=== PATIENT | female | born 1980 | race Caucasian/White ===

== ENCOUNTER 2024-10-07 13:40 | Emergency (ER) | payer OTHER, SELFPAY ==
[2024-10-07 13:41] VITALS: BP 106/59; PULSE 78; RESP 16; TEMP 36.8; O2SAT 100; BMI 21.9
[2024-10-07 13:48] VITALS: BP 109/74; PULSE 69; RESP 16; O2SAT 100
--- OUTSIDE RECORDS SUMMARY | 2024-10-07 14:34 | XMS RPT_ITS | CCD ---
Author Organization [facility] Care Team Providers Care Freezer Operator Name Role Phone Rosalva Tabor Primary Care Provider Анна Mccurdy Attending Unavailable Rosalva Tabor Referring Unavailable Rosalva Tabor Primary Care Unavailable ASHLEY PATEL Primary Care Physician [phone] ALEXANDER REILLY DO Attending Unavailab ASHLEY Mckeon Primary Care Unavailable ALEXANDER REILLY DO Attending Unavailab ASHLEY Mckeon Primary Care Unavailable ALEXANDER REILLY DO Attending Unavailab krishna PHYSICIAN, NONE Primary Care Unavailable ROSALVA PETIT MD Attending Unavailable ASHLEY PATEL Primary Care Unavailable Giuseppe MATTHEWS, Ashley Faulkner Unavailable Giuseppe MATTHEWS, Ashley Faulkner Unavailable (Lopez), [facility] Unavailable Clary Griffin MD Unavailable Claudia CLINICAL DATA MANAGEMENT DIRECTOR, Michelle Unavailable Andrey Turner MD Unavailable Freddie CLINICAL DATA MANAGEMENT DIRECTOR, Miladis Wang Unavailable Unavailable Gogoi (scribe), Hemanta Unavailable Unavailkelsea Horne MD, Erin Adair Unavailable Shanice GARCIAC, Becky Brown Unavailable Juan José CLINICAL DATA MANAGEMENT DIRECTOR, Violet Unavailable UnavailDoris Marcano Unavailable David CLINICAL DATA MANAGEMENT DIRECTOR, Clary Pryor Unavailable Unavailab krishna Flores LPN, Elida Miller Unavailable Unavailab Jailene Patterson MA Unavailable Unavailable Rosalva Tabor MD Unavailable Vess CLINICAL DATA MANAGEMENT DIRECTOR, Jose Wagner Unavailable Unavailable Wechin CLINICAL DATA MANAGEMENT DIRECTOR, Orin Unavailable Unavailabl e Shashank CLINICAL DATA MANAGEMENT DIRECTOR, Melanie Randolph Unavailable Unavaila ble Unavailable Unavailable Patricia CLINICAL DATA MANAGEMENT DIRECTOR, Litzy Unavailable Unavailabl e CHIN, ASHLEY J Attending Unavailable CHIN, ASHLEY J Admitting Unavailable CHIN, ASHLEY J Primary Care Unavailable CHIN, ASHLEY J Consulting Unavailable PROVIDER, UNKNOWN Consulting Unavailable CHIN, ASHLEY J Consulting Unavailable CHIN, ASHLEY J Attending Unavailable CHIN, ASHLEY J Admitting Unavailable CHIN, ASHLEY J Primary Care Unavailable PROVIDER, UNKNOWN Consulting Unavailable CHIN, ASHLEY J Attending Unavailable CHIN, ASHLEY J Admitting Unavailable CHIN, ASHLEY J Primary Care Unavailable CHIN, ASHLEY J Consulting Unavailable PROVIDER, UNKNOWN Consulting Unavailable CHIN, ASHLEY J Attending Unavailable CHIN, ASHLEY J Admitting Unavailable CHIN, ASHLEY J Primary Care Unavailable CHIN, ASHLEY J Consulting Unavailable PROVIDER, UNKNOWN Consulting Unavailable CHIN, ASHLEY J Attending Unavailable CHIN, ASHLEY J Admitting Unavailable CHIN, ASHLEY J Primary Care Unavailable CHIN, ASHLEY J Consulting Unavailable PROVIDER, UNKNOWN Consulting Unavailable Allergies Allergy Classification Reported Allergen(s) Allergy Type Date of Onset Reaction(s) Facility Cephalosporins (antibiotic) (1 source) [facility] [employer] Penicillin V (1 source) Penicillin [facility] [employer] (20 sources) Cephalexin; Translations: [cephalexin] Drug Allergy 6 Vomiting, Nausea and vomiting (disorder) [facility] Work Phone: (6 sources) Codeine Drug Allergy 6 [facility] Work Phone: (3 sources) Penicillins Propensity to adverse reactions 6 [facility] Work Phone: (3 sources) Penicillins Propensity to adverse reactions 6 [facility] Work Phone: (17 sources) Penicillin V [facility] [employer] [place] [facility] (1 source) Cephalexin Drug Allergy [facility] (1 source) Penicillins Drug allergy (disorder) [facility] Rep[facility] Medications Current Medications Medication Drug Class(es) Dates Sig (Normalized) Sig (Original) acetaminophen 325 mg / HYDROcodone bitartrate 5 mg oral tablet (1 source) Opioid Agonist Start: 10-14-2022 take 1 tablet by mouth every four hours as needed for pain [place] 325- 5 mg oral tablet Dose = 1 tab(s), Oral, q4h, PRN for pain, # 12 tab(s), 0 Refill(s), 63 Start Date: 10/14/22 Status: Ordered acetaminophen 325 mg / oxyCODONE hydrochloride 5 mg oral tablet (1 source) Opioid Agonist Start: 05-14-2022 End: 05-17-2022 take 1 tablet by mouth every four hours as needed for pain Percocet 5 mg-325 mg oral tablet Dose = 1 tab(s), Oral, q4h, PRN PRN for pain, X 3 day(s), # 18 tab(s), 0 Refill(s), Pharmacy: [facility], Status post laparoscopic assisted vaginal hysterectomy (LAVH) Status post anterior colporrhaphy, 160, cm, 05/14/22 7:11:00 EDT, Heig... Start Date: 05/14/22 Stop Date: 05/17/22 Status: Ordered ciprofloxacin 250 mg oral tablet (20 sources) Quinolone Antimicrobial Start: 10-14-2022 End: 10-28-2022 Cipro 250 mg oral tablet Dose : 250 mg = 1 tab(s), Oral, q12h, # 28 tab(s), 0 Refill(s), 63 Start Date: 10/14/22 Stop Date: 10/28/22 Status: Ordered Start: 12-03-2021 End: 12-06-2021 take 1 tablet by mouth twice daily Cipro 250 MG Oral Tablet ; 1 (one) Tablet two times daily for 3 days Quantity: 6 {Tablet} Refills: 0 Ordered: 03-Dec-2021 BYRON Chin Start: 03-Dec-2021 End: 06-Dec-2021 Status: Inactive Start: 01-02-2013 End: 01-05-2013 take 1 tablet by mouth twice daily CIPROFLOXACIN HCL, 500MG (Oral Tablet) ; 1 Tablet bid for 3 days Quantity: 6 {Tablet} Refills: 0 Ordered: 02-Jan-2013 BYRON Prasad Start: 02-Jan-2013 End: 05-Jan-2013 Status: Inactive Fish Oils (20 sources) Fish OiL 300 mg- 1,000 mg capsule ; daily (300-1,000 mg) Fish Oil Status: Inactive fluticasone propionate 0.05 mg/actuat metered dose nasal spray (20 sources) Corticosteroid Start: 10-06-2022 take 1 dose nasal route once daily as needed Flonase 50 mcg/inh nasal spray Dose = 2 spray(s), Nostril, each, qDay, PRN Allergy symptoms, 0 Refill(s) Start Date: 10/06/22 Status: Ordered Flonase Allergy Relief 50 MCG/ACT Nasal Suspension ; 1 daily (50 MCG/ACT) fluticasone prop ionate (FLONASE NASAL) Use in the nose. 0 Active Comment on above: Use in the nose. ibuprofen 600 mg oral tablet (1 source) Nonsteroidal Anti-inflammatory Drug Start: 05-14-2022 ibuprofen 600 mg oral tablet Dose : 600 mg = 1 tab(s), Oral, QID, PRN PRN as needed for pain, # 120 tab(s), 0 Refill(s), Pharmacy: [facility] [id number], 160, cm, 05/14/22 7:11:00 EDT, Height Start Date: 05/14/22 Status: Ordered multivitamin tablet (13 sources) multivitamin tab let ; daily phenazopyridine hydrochloride 200 mg oral tablet (19 sources) Start: 04-30-2022 End: 05-01-2022 phenazopyridine 200 mg oral tablet Dose : 200 mg = 1 tab(s), Oral, qHS, # 4 tab(s), 0 Refill(s) Start Date: 04/30/22 Stop Date: 05/01/22 Status: Ordered Start: 11-27-2021 End: 11-29-2021 take 1 tablet by mouth three times daily Pyridium 200 MG Oral Tablet ; 1 (one) Tablet TID for 2 days Quantity: 6 {Tablet} Refills: 0 Ordered: 27-Nov-2021 BYRON Chin Start: 27-Nov-2021 End: 29-Nov-2021 Status: Inactive Completed/Discontinued Medications Medication Drug Class(es) Dates Sig (Normalized) Sig (Original) azithromycin 250 mg oral tablet (20 sources) Macrolide Antimicrobial Start: 03-07-2018 End: 08-02-2018 Azithromycin 250 MG Oral Tablet ; 2 (two) Tablets today 1/d x 4 d for 0 days Quantity: 6 {Tablet} Refills: 0 Ordered: 02-Aug-2018 Start: 07-Mar-2018 End: 02-Aug-2018 Status: Inactive Start: 07-22-2015 End: 07-25-2015 take 1 tablet by mouth once daily AZITHROMYCIN, 500MG (Oral Tablet) ; 1 (one) Tablet once daily for 3 days Quantity: 3 {Tablet} Refills: 0 Ordered: 22-Jul-2015 MD Erin Horne Start: 22-Jul-2015 End: 25-Jul-2015 Status: Inactive Comments: wm Comment on above: wm cefdinir 300 mg oral capsule (18 sources) Cephalosporin Antibacterial Start: 06-12-19 End: 06-22-19 17 take 1 capsule by mouth twice daily Cefdinir 300 MG Oral Capsule ; 1 (one) Capsule BID for 10 days Quantity: 20 {Capsule} Refills: 0 Ordered: 11-Jun-2016 BYRON Chin Start: 11-Jun-2016 End: 21-Jun-2016 Status: Inactive clindamycin 20 mg/ml vaginal cream (1 source) Lincosamide Antibacterial Start: 05-01-19 Clindesse 2% vaginal cream Dose = 1 appl, Vaginal, Once, 0 Refill(s) Start Date: 04/30/22 Status: Ordered Desogestrel / Ethinyl Estradiol (5 sources) Progestin, Estrogen Start: 03-01-19 End: 08-21-19 DESOGEN 0.15 MG-30 MCG TAB Take one(1) tablet daily. 1 03/01/2006 08/20/2021 Discontinued Start: 03-01-2006 DESOGEN 0.15 M G-30 MCG TAB Take one(1) tablet daily. 1 03/01/2006 Active Comment on above: Take one(1) tablet d aily. doxycycline hyclate 100 mg oral capsule (18 sources) Tetracycline-class Drug Start: 02-16-19 15 End: 02-26-19 15 take 1 capsule by mouth twice daily DOXYCYCLINE HYCLATE, 100MG (Oral Capsule) ; 1 (one) Cap two times daily for 10 days Quantity: 20 {Capsule} Refills: 0 Ordered: 16-Feb-2014 BYRON Chin Start: 16-Feb-2014 End: 26-Feb-2014 Status: Inactive Ethinyl Estradiol / norgestimate (18 sources) Progestin, Estrogen Start: 02-17-19 19 End: 08-03-19 19 take 1 tablet by mouth once daily Sprintec 28 0.25-35 MG-MCG Oral Tablet ; 1 Tablet daily for 0 days Quantity: 1 {Package} Refills: 5 Ordered: 02-Aug-2018 Start: 17-Feb-2018 End: 02-Aug-2018 Status: Inactive FLUoxetine 10 mg oral capsule (18 sources) Serotonin Reuptake Inhibitor Start: 05-10-19 15 End: 04-16-19 16 FLUOXETINE HCL, 10MG (Oral Capsule) ; 1 (one) Capsule daily for 2 wks then 1 q other day for 2 wks for 0 days Quantity: 30 {Capsule} Refills: 0 Ordered: 16-Apr-2015 ABDELRAHMAN Encarnacion Start: 09-May-2014 End: 16-Apr-2015 Status: Inactive levoFLOXacin 750 mg oral tablet (18 sources) Quinolone Antimicrobial Start: 03-02-19 15 End: 03-07-19 15 take 1 tablet by mouth once daily LEVAQUIN, 750MG (Oral Tablet) ; 1 Tab daily for 5 days Quantity: 5 {Tube} Refills: 0 Ordered: 02-Mar-2014 ABDELRAHMAN Hernandez Start: 02-Mar-2014 End: 07-Mar-2014 Status: Inactive loratadine 10 mg oral tablet (18 sources) take 1 tablet by mouth once daily LORATADINE, 10MG (Oral Tablet) ; 1 daily (10 MG) Status: Inactive MULTIVITAMIN ORAL (6 sources) MULTIVITAMIN ORA L Take by mouth. 0 Active Comment on above: Take by mouth. nitrofurantoin, macrocrystals 25 mg / nitrofurantoin, monohydrate 75 mg oral capsule (18 sources) Nitrofuran Antibacterial Start: 11-28-19 End: 12-03-19 take 1 capsule by mouth twice daily Macrobid 100 MG Oral Capsule ; 1 Capsule BID for 5 days Quantity: 10 {Capsule} Refills: 0 Ordered: 27-Nov-2021 BYRON Chin Start: 27-Nov-2021 End: 02-Dec-2021 Status: Inactive omeprazole 40 mg delayed release oral capsule (20 sources) Proton Pump Inhibitor Start: 07-26-19 End: 10-21-19 13 OMEPRAZOLE, 40MG (Oral Capsule Delayed Release) ; [address] daily for 0 days Quantity: 30 {Capsule_DR} Refills: 6 Ordered: 20-Oct-2012 BYRON Chin Start: 25-Jul-2010 End: 20-Oct-2012 Status: Inactive Comments: taking otc Start: 02-22-2010 End: 07-25-2010 OMEPRAZOLE, 20MG (Oral Capsu le Delayed Release) ; [address] daily for 0 days Quantity: 30 {Cap_DR} Refills: 5 Ordered: 25-Jul-2010 ABDELRAHMAN Taylor Start: 22-Feb-2010 End: 25-Jul-2010 Status: Inactive Comment on above: taking otc sulfamethoxazole 800 mg / trimethoprim 160 mg oral tablet (18 sources) Dihydrofolate Reductase Inhibitor Antibacterial, Sulfonamide Antimicrobial Start: 05-03-2024 End: 05-08-2024 Bactrim DS 800 mg-160 mg tablet ; 1 Tablet two times daily for 5 days Quantity: 10 {Tablet} Refills: 0 Ordered: 03-May-2024 MD Rosalva Tabor Start: 03-May-2024 End: 08-May-2024 Status: Inactive Start: 01-15-2021 End: 01-20-2021 take 1 tablet by mouth twice daily Bactrim DS 800-160 MG Oral Tablet ; 1 Tablet two times daily for 5 days Quantity: 10 {Tablet} Refills: 0 Ordered: 15-Jan-2021 BYRON Chin Start: 15-Jan-2021 End: 20-Jan-2021 Status: Inactive Problems Active Problems Problem Classification Problem Date Documented Date Episodic/Chronic Acute bronchitis (20 sources) Acute bronchitis 03-17-2010 Episodic Administrative/soci al admission (20 sources) Issue of repeat prescriptions 03-02-2014 Episodic Cancer of cervix (20 sources) Papanicolaou smear of cervix with atypical squamous cells of undetermined significance (ASC-US) 11-26-2022 Episodic Comment on above: positive hpv Contraceptive and procreative management (20 sources) Unspecified contraceptive management 02-16-2014 Episodic Crushing injury or internal injury (20 sources) Crushing injury of toe(s) 07-25-2010 Episod ic Deficiency and other anemia (20 sources) Anemia; Translations: [Anemia, unspecified] 07-25-2010 Episodic Disorders of lipid metabolism (20 sources) Mixed hypercholesterolemia and hypertriglyceridemia; Translations: [Mixed hyperlipidemia] 12-15-2018 Chronic Esophageal disorders (20 sources) Gastroesophageal reflux disease; Translations: [Esophageal reflux] 11-26-2022 Chronic Esophageal disorders (20 sources) Acute esophagitis; Translations: [Acute esophagitis] 11-12-2010 Episodic Genitourinary symptoms and ill-defined conditions (2 sources) Female stress incontinence; Translations: [Stress incontinence (female) (male)] Chronic Genitourinary symptoms and ill-defined conditions (20 sources) Increased frequency of urination; Translations: [Frequency of micturition] Episodic Immunizations and screening for infectious disease (20 sources) Patient encounter status; Translations: [Encounter for screening for human papillomavirus (HPV)] Episodic Nonmalignant breast conditions (20 sources) Breast lump; Translations: [Unspecified lump in unspecified breast] 12-14-2018 Episodic Other and unspecified benign neoplasm (18 sources) Benign neoplasm of soft tissue; Translations: [Melanocytic nevi, unspecified] 11-03-2011 Episodic Other complications of (20 sources) Other specified complications of , unspecified as to episode of care or not applicable 06-02-2010 Episodic Other connective tissue disease (1 source) Pelvic floor dysfunction; Translations: [Other specified disorders of muscle] Episodic Other diseases of bladder and urethra (1 source) Overactive bladder; Translations: [Overactive bladder] Chronic Other female genital disorders (2 sources) Abnormal uterine and vaginal bleeding, unspecified; Translations: [Abnormal uterine and vaginal bleeding, unspecified] Onset: 3 Chronic Other female genital disorders (2 sources) Other specified abnormal uterine and vaginal bleeding; Translations: [Other specified abnormal uterine and vaginal bleeding] Onset: 3 Chronic Other female genital disorders (20 sources) Premenstrual tension syndrome; Translations: [Premenstrual tension syndrome] 12-14-2018 Chronic Other non-traumatic joint disorders (20 sources) Multiple joint pain; Translations: [Pain in unspecified joint] 11-26-2022 Episodic Other and delivery including normal (20 sources) Supervision of other normal ; Translations: [Routine follow-up] 06-02-2010 Episodic Other screening for suspected conditions (not mental disorders or infectious disease) (20 sources) Cancer cervix screening status; Translations: [Encounter for screening for malignant neoplasm of cervix] Episodic Other skin disorders (20 sources) Hirsutism; Translations: [Hirsutism] 11-26-2022 Episodic Other upper respiratory infections (20 sources) Sinusitis; Translations: [Chronic sinusitis, unspecified] 07-22-2015 Chronic Other upper respiratory infections (20 sources) Acute maxillary sinusitis; Translations: [Acute maxillary sinusitis, unspecified] 06-11-2016 Episodic Otitis media and related conditions (18 sources) Otitis media; Translations: [Unspecified nonsuppurative otitis media, left ear] 06-11-2016 Episodic Prolapse of female genital organs (4 sources) Herniated urinary bladder; Translations: [Cystocele, unspecified] Onset: 3 Chronic Rehabilitation care; fitting of prostheses; and adjustment of devices (1 source) Patient encounter status; Translations: [Encounter for fitting and adjustment of other specified devices] Chronic Residual codes; unclassified (1 source) Pelvic organ finding; Translations: [Acquired absence of both cervix and uterus] Onset: 3 Episodic Residual codes; unclassified (1 source) Past history of procedure; Translations: [Other specified postprocedural states] Onset: 3 Episodic Residual codes; unclassified (20 sources) Influenza vaccination declined; Translations: [Immunization not carried out because of patient refusal] 12-14-2018 Episodic Sexually transmitted infections (not HIV or hepatitis) (7 sources) Other abnormal Papanicolaou smear of cervix and cervical HPV 02-16-2014 Episodic Skin and subcutaneous tissue infections (20 sources) Paronychia of toe; Translations: [Cellulitis of unspecified toe] 01-07-2011 Episodic Unclassified (7 sources) GERD/ACID REFLUX 02-16-2014 Unclassified (18 sources) Number of Children 11-26-2022 Comment on above: 2. Unclassified (18 sources) Number of Pregnancies 11-27-2021 Comment on above: 2. Unclassified (18 sources) Vaginal deliveries 11-26-2022 Comment on above: 2. Urinary tract infections (20 sources) Urinary tract infectious disease; Translations: [Urinary tract infection, site not specified] 01-15-2021 Episodic Past or Other Problems Problem Classification Problem Date Documented Da te Episodic/Chronic Unclassified (18 sources) Well adult female - The patient feels well with no complaints. The patient has a balanced diet and takes supplemental vitamins (fish oil and hair skin and nails). The patient exercises weekly. The patient sleeps 8 hours per night. Note for Well adult female: No concerns today. 11-26-2022 Unclassified (18 sources) Well adult female - The patient feels well with minor complaints (some urinary symptoms and still spotting from period started on the ), has good energy level and is sleeping well. The first day of the last menstrual period was : (11/17/21). The patient has a balanced diet. The patient exercises 3 - 4 times per week. The patient sleeps 7 hours per night. Note for Well adult female: Saw [facility] to sent to urology who sent to urogyn. Had lots of procedures done for residual urine. Was given a pessary. Has large clots but regular menses (usually lasts 6-7 days) - has had some persistent light brown spotting with this period but this today had urinary clots, some bilateral lower dull back pain, no fever, and bladder spasms. Has appt tomorrow with [facility] (who manages uro symptoms too). 11-27-2021 Unclassified (18 sources) UTI - Symptoms include abdominal pain and back pain. The pain is located in the suprapubic area and in the back. The patient describes the pain as burning. Onset was gradual 1 week(s) ago. There is no known event that preceded symptom onset. The symptoms occur constantly. The patient describes this as moderate in severity and unchanged. Associated symptoms do not include fever or nausea. Note for UTI: Pt was treated via tele doc on 01/12/21 with macrobid - took that until she called our office on 01/15 and was changed to bactrim (was having new back pain). Urine culture was negative so bactrim was stopped. She has continued with back pain (not associated with movement).Has urinary pressure.Abd pain/burning throughout - sometimes more prominent in right lower pelvis.LMP was right before urinary symptoms started.No constipation - BMs have been maybe slightly loser (similar to how they are when she is on her menses). 01-22-2021 Unclassified (18 sources) Well adult female - The patient feels well with no complaints, has good energy level and is sleeping well. The patient is not using any method of contraception at this time. The patient has a balanced diet. The patient exercises 3 - 4 times per week. The patient sleeps 7 hours per night. Note for Well adult female: No concerns today. 12-05-2020 Unclassified (18 sources) Well adult female - The patient feels well with no complaints, has good energy level and is sleeping well. The first day of the last menstrual period was : (11/24/2019). The patient has a balanced diet and takes no supplemental vitamins & iron. The patient exercises weekly (occasionally). The patient sleeps 7 hours per night. Note for Well adult female: Weight is up 10 pounds - stress/lifestyle related. 12-18-2019 Unclassified (18 sources) Well adult female - The patient feels well with no complaints, has good energy level and is sleeping poorly (has a baby she is taking care of and he is starting to not sleep as well which affects her). The first day of the last menstrual period was : (12/05/2018). The current method of contraception is: partner had vasectomy. The patient has a balanced diet and takes supplemental vitamins. The patient exercises weekly. The patient sleeps 6 hours per night. Note for Well adult female: Last office visit 08/02/2018. Also hyperlipidemia and gerd. 12-15-2018 Unclassified (18 sources) Breast lump - The lump is on the right breast. The onset of the lump has been sudden and has been occurring in a persistent pattern for 2 days. The course has been constant. The lump is described as tender. The lump is described as moderate. The first day of the last menstrual period was : (07/12/2018). Note for Breast lump: Patient states that her maternal aunt had breast cancer. She denies any redness on outside of breast. No drainage noted. 08-02-2018 Unclassified (18 sources) Well adult female - The patient feels well with minor complaints (she is questioning hormones - still feels crazy some days (PMS) and then getting chin hair; periods are regular but heavy (pad/tampon every 2 hours)), has good energy level and is sleeping well. The first day of the last menstrual period was : (12/12/2017 states is regular). The patient has a balanced diet and takes supplemental vitamins (when she remembers.). The patient exercises weekly. The patient sleeps 7 hours per night. Note for Well adult female: Has been having pain in hands/feet. Morning stiffness that lasts for less than 30 minutes. 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 The first day of the last menstrual period was : (10/29/2016). The patient has a balanced diet and takes no supplemental vitamins & iron. The patient exercises weekly (1-2 x a wk). The patient sleeps 7 hours per night. 11-13-2016 Unclassified (18 sources) Cold Symptoms - Symptoms include nasal congestion, runny nose, ear pain (just started ), sore throat and headache, but do not include dry cough, productive cough or fever. The onset was gradual 7 day(s) ago. The symptoms occur constantly. The patient describes this as moderate in severity and unchanged. Current treatment includes saline nasal spray/drops and mucinex and sinus releif. Medical history includes seasonal allergies and recurrent sinusitis, but patient denies history of recurrent strep pharyngitis, asthma, tonsillectomy or recurrent ear infections. 06-11-2016 Unclassified (18 sources) Well adult female - The patient feels well with no complaints, has good energy level and is sleeping well. The first day of the last menstrual period was : (10/26/2015 regular). The patient has a balanced diet and takes no supplemental vitamins & iron. The patient exercises weekly. The patient sleeps 7 hours per night. Note for Well adult female: Pt has no complaints - needs form completed. 11-04-2015 Unclassified (18 sources) Cold Symptoms - Symptoms include sneezing, nasal congestion, runny nose, ear pain (bilateral), ear fullness, sore throat (a few weeks ago), scratchy throat, dry cough (occasionally), headache and facial pain, but do not include fever, chills or general malaise. The onset was sudden 2 week(s) ago. The symptoms occur constantly. The patient describes this as moderate in severity and unchanged. Current treatment includes allergy medications (Zyrtec and OTC cold medication.). Medical history includes seasonal allergies. 07-22-2015 Unclassified (18 sources) UTI - Symptoms include dysuria, urinary frequency and urinary urgency. Onset was sudden hour(s) ago. There is no known event that preceded symptom onset. The symptoms occur constantly. The patient describes this as moderate in severity and worsening. Symptoms are relieved by urinary anesthetics. Associated symptoms include nausea and nocturia, but do not include fever or chills. 04-16-2015 Unclassified (18 sources) Well adult female - The patient feels well with minor complaints (Has had prolonged cold symptoms - cough,st, rhinitis (colored in am), ears hurt. No fever. Daughter has been sick.), has decreased energy level and is sleeping well. The first day of the last menstrual period was : (Last was 1 month ago; is due; regular on OCP). The current method of contraception is: oral contraceptives. The patient has a balanced diet and takes no supplemental vitamins & iron. The patient exercises weekly. The patient sleeps 6 hours per night. Note for Well adult female: Has noticed improvement in PMS with OCP and SSRI - still has symptoms but they are much better. Has noticed decreased libido since starting SSRI but is ok with this. Weight is up about 10 pounds in the past year. 02-16-2014 Unclassified (18 sources) Cold Symptoms - Symptoms include nasal congestion, ear pain, ear fullness, scratchy throat (mild), dry cough (mild), general malaise, headache and facial pain, but do not include wheezing or fever. The onset was gradual 3 week(s) ago. The patient describes this as moderate in severity and worsening. Current treatment includes allergy medications (Claritin, Zyrtec). Risk factors do not include smoking. The patient has been exposed to an individual with an upper respiratory infection. 06-09-2013 Unclassified (18 sources) Form completion physical - The patient feels well with no complaints, has good energy level and is sleeping well. There are no current symptoms. The patient has an appropriate balanced diet and takes no supplemental vitamins or iron and sleeps on average 8 hours per night. There are no behavioral problems. 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 04-06-2013 Unclassified (18 sources) UTI - Symptoms include dysuria, urinary frequency, urinary urgency, dark urine, abdominal pain and back pain. The pain is located in the suprapubic area and in the back. The patient describes the pain as dull, aching and burning. Onset was sudden 3 day(s) ago. There is no known event that preceded symptom onset. The symptoms occur constantly. The patient describes this as moderate in severity and worsening. Symptoms are relieved by urinary anesthetics and cranberry juice. Associated symptoms include nausea, but do not include fever or vomiting. 12-31-2012 Unclassified (18 sources) Well adult female - The patient feels well with minor complaints (Periods are regular but are heavy and painful. A couple of days before her period she says she becomes the devil and she can just feel her hormones go crazy. Gets achy and fatigued around her menses. Says it has been like this since she had her son. ), has decreased energy level and is sleeping poorly (sleeps lighltey). The first day of the last menstrual period was : (10/08/12). The current method of contraception is: partner had vasectomy. The patient has a balanced diet and takes no supplemental vitamins & iron. The patient exercises weekly. The patient sleeps 8 hours per night. 10-20-2012 Unclassified (18 sources) Well Adult, female - The patient feels well with minor complaints. Most recent Pap smear : (11/18 - wnl (previous pap in 07/2010 was ASCUS and HPV +)). The first day of the last menstrual period was : (10/14/2011 - normal). The current method of contraception is: partner had vasectomy. Patient has not had a screening mammogram. Date of most recent cholesterol screening : (11/07/10-237). Date of most recent glucose screening : (10/19 83). Date of Pneumovax : (2003). Date of most recent influenza vaccine : (2010 - gets it at work). Last Tetanus booster: Date: (09/2003). The patient has a balanced diet. The patient exercises every other day (2-3 times per week). The patient sleeps 7 hours per night. Note for Well Adult, female: Will be having biometric testing done in November at work. Complains of trouble swallowing - 3x/month - hasn't been increasing in frequency. Occurs while eating or after eating a meal. Sometimes it can last for a full day. Unable to identify if more with solids or liquids. Would like to have a mole on her chest checked - it has gotten darker. 11-03-2011 Unclassified (18 sources) lina consult - Pt states that she is currently using condoms for contraception. Since having her second child earlier this year her periods have not been regular. LMP 12/02/10. No history of PID, ectopic ; denies STD risk. Has used OCPs in past, but prefers to use something she doesn't have to think about everday. 01-09-2011 Unclassified (18 sources) toenail problem - Crushed great toe this past summer. Toenail is not healing correctly. She thinks she needs something excised. 01-07-2011 Unclassified (18 sources) Sinus - Pt here because she has been fighting with sinus for past month. Head and nasal congestion. Can't taste or smell anything and ears lugged and ache. No fever. Feels it was time for rx. was in cipro about a month ago for infected toe, then got a UTI and was on bactrim which was switched to macrodantin after C & S got back. Pt has had sinus sx through out. 12-15-2010 Unclassified (18 sources) UTI - Symptoms include dysuria, urinary frequency, urinary urgency and abdominal pain, but do not include back pain. The pain is located in the suprapubic area. There is no radiation. The patient describes the pain as aching. Onset was sudden 12 hour(s) ago. There is no known event that preceded symptom onset. The symptoms occur constantly. The patient describes this as severe and unchanged. Symptoms are relieved by phenazopyridine. Associated symptoms include fever (didn't have a temperature earlier this morning when she checked it, just has one now in the office), chills and nausea, but do not include vomiting. Note for UTI: Has never had UTI before. Just finished course of cipro (10 days) for infected toe on 11/22/10. 11-26-2010 Unclassified (18 sources) 2 things. - -1) Repeat pap smear. ASCUS pap + hpv in July 2010. 2) Discuss recent labs. Had fingerstick screening at work, elevated results. Had venipuncture labs for comparison. 11-12-2010 Unclassified (16 sources) Post- visit - The patient is here for an initial visit after induced vaginal delivery. There were no complications. The patient feels well with no complaints. There are no urinary problems. There are no bowel problems. Perineum/wound: perineum healing well. There are no feeding difficulties. Menstruation: has not resumed. The patient has resumed physical activity. 07-25-2010 Unclassified (16 sources) [ADDITIONAL REASON] gastritis - was in er recently with chest tightness and abdominal pain. was dx with reflux and esophogeal spasm. was advised to use antacids and she also is taking otc prevacid. she is still having alot of sx. 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 Right toe swollen and ecchymotic. Hurts to bear any weight- has to walk on outside of foot. Kept her up all last night. Entire toe painful into top part of foot. 06-06-2010 Unclassified (15 sources) Visit - The patient is here for a 28 week visit. 03-17-2010 Unclassified (15 sources) [ADDITIONAL REASON] Cold Symptoms - Symptoms include nasal congestion, scratchy throat, dry cough (and chest pain) and general malaise (nausea, decreased movement), but do not include fever. The onset was gradual 1 week(s) ago (had sinus rishi for one month). The symptoms occur constantly. The patient describes this as moderate in severity and worsening. Current treatment includes acetaminophen. 03-17-2010 Unclassified (2 sources) gastritis - was in er recently with chest tightness and abdominal pain. was dx with reflux and esophogeal spasm. was advised to use antacids and she also is taking otc prevacid. she is still having alot of sx. 07-25-2010 Unclassified (2 sources) [ADDITIONAL REASON] Post- visit - The patient is here for an initial visit after induced vaginal delivery. There were no complications. The patient feels well with no complaints. There are no urinary problems. There are no bowel problems. Perineum/wound: perineum healing well. There are no feeding difficulties. Menstruation: has not resumed. The patient has resumed physical activity. 07-25-2010 Unclassified (3 sources) Cold Symptoms - Symptoms include nasal congestion, scratchy throat, dry cough (and chest pain) and general malaise (nausea, decreased movement), but do not include fever. The onset was gradual 1 week(s) ago (had sinus rishi for one month). The symptoms occur constantly. The patient describes this as moderate in severity and worsening. Current treatment includes acetaminophen. 03-17-2010 Unclassified (3 sources) [ADDITIONAL REASON] Visit - The patient is here for a 28 week visit. 03-17-2010 Unclassified (13 sources) Well adult female - The patient feels well with no complaints, has good energy level and is sleeping well. The patient has a balanced diet and takes supplemental vitamins. The patient exercises 3 - 4 times per week. The patient sleeps 8 hours per night. Note for Well adult female: Weight down 11 pounds in the past year - lots of stress/changes but feels she is doing ok now. 12-01-2023 Unclassified (4 sources) Well adult female - The patient feels well with no complaints, has good energy level and is sleeping well. The patient has a balanced diet. The patient exercises 3 - 4 times per week. The patient sleeps 8 hours per night. Note for Well adult female: Patient voices no concerns at this time, patient declines pelvic exam at this time. 08-31-2024 Results Test Name Value Interpretation Reference Range Facility CA 125 [CCL]on 09-01-2024 CA 125 13 U/mL Normal [facility] Comment on above: Result Comment: CA 1 25 test methodology used is the Electrochemiluminescence Immunoassay by [facility]. Results obtained with different methods or kits cannot be used interchangeably. The reference interval is based on the 95th percentile of 240 apparently healthy premenopausal and postmenopausal women. At a cutoff value of 65 U/mL, the test sensitivity to distinguish ovarian carcinoma (FIGO stage I to IV) versus benign gynecological disease is 79%, with a specificity of 82%. Reference: Cancer Antigen 125 (CA 125 II) [package insert V 1.0 [place]]. [facility], [place], [place] (November 2014) [place] [id number] Stanford Reid III, M.D. [id number] Performed By: #### 2 71416 #### [address] [address] CA 15-3 [CCL]on 09-01-2024 CA 15-3 12.6 U/mL Normal [facility]. Comment on above: Result Comment: The CA 15-3 test methodology used is the Electrochemiluminescence Immunoassay by [employer]. Results obtained with different methods or kits cannot be used interchangeably. [address] [address] Stanford Reid III, M.D. [id number] Performed By: #### 2 55720 #### [address] [address] CA 19-9 [CCL]on 09-01-2024 CA 19-9 14.0 U/mL Normal <36.0 [facility] Comment on above: Result Comment: [facility] er antigen 19-9 test is used as an aid in monitoring response to treatment or recurrence in patients with established pancreatic, hepatobiliary, or gastrointestinal malignancies. Clinical correlation is required. The CA 19-9 Antigen test was performed using the [employer] DXI paramagnetic particle chemiluminescent immunoassay method. Results obtained with different assay methods or kits cannot be used interchangeably. [address] [address] Stanford Reid III, M.D. [id number] Performed By: #### 2 37167 #### [address] [address] Cancer Ag125 SerPl-aCncon Cancer Ag 125 Qn 13 [arb'U]/mL Normal <39 [facility] Comment on above: Order Comment: Freda christie Type: BLOOD SPECIMEN Ordering Facility: [facility] Address: [place] [address] Result Comment: CA 1 25 test methodology used is the Electrochemiluminescence Immunoassay by [facility]. Results obtained with different methods or kits cannot be used interchangeably. The reference interval is based on the 95th percentile of 240 apparently healthy premenopausal and postmenopausal women. At a cutoff value of 65 U/mL, the test sensitivity to distinguish ovarian carcinoma (FIGO stage I to IV) versus benign gynecological disease is 79%, with a specificity of 82%. Reference: Cancer Antigen 125 (CA 125 II) [package insert V 1.0 [place]ian]. [facility], [place], [place] (November 2014) Performed By: #### 2 4108-3, 6875-9, 46673-6 #### [facility] CLIA [id number] [address] [place] [address] [place] Cancer Ag15-3 SerPl-aCncon 0 08-31-2024 Cancer Ag 15-3 Qn 12.6 U/mL Normal <26.0 [facility] Comment on above: Order Comment: Freda christie Type: BLOOD SPECIMEN Ordering Facility: [facility] Address: [facility] [place] [address] Result Comment: The CA 15-3 test methodology used is the Electrochemiluminescence Immunoassay by [facility]. Results obtained with different methods or kits cannot be used interchangeably. Performed By: #### 2 4108-3, 6875-9, 71861-3 #### [facility] CLIA [id number] [address] [place] [address] [place] Cancer Ag19-9 SerPl-aCncon 0 08-31-2024 Cancer Ag 19-9 Qn 14.0 [arb'U]/mL Normal <36.0 [facility] Comment on above: Order Comment: Freda christie Type: BLOOD SPECIMEN Ordering Facility: [facility] Address: [facility] [place] [address] Result Comment: [facility] er antigen 19-9 test is used as an aid in monitoring response to treatment or recurrence in patients with established pancreatic, hepatobiliary, or gastrointestinal malignancies. Clinical correlation is required. The CA 19-9 Antigen test was performed using the [employer] [place] [employer] DXI paramagnetic particle chemiluminescent immunoassay method. Results obtained with different assay methods or kits cannot be used interchangeably. Performed By: #### 2 4108-3, 6875-9, 01664-3 #### [facility] CLIA [id number] [address] [place] [address] [place] No Panel Informationon 08-31 CA 19-9 14.0 U/mL Normal [facility] Work Phone: 3D MAMM UNILAT RT DIAGNOSTIC on 08-22-2024 3D MAMM UNILAT RT DIAGNOSTIC [address] [address] Patient: BUCK LONG Phone#: : 1980 Age: 43 Gender: F Pt. Type: Out Account: [id number] Location: Ordering: [facility] Exam Date: 08/22/2024/10:05 Family Phys: Charge Code: [id number] Physician: Magoffin Order #: [id number] Dose#: PROCEDURE: RIGHT DIAGNOSTIC BREAST TOMOSYNTHESIS MAMMOGRAM WITH CAD COMPARISON: [facility], 3D UNILAT RT DIAGNOSTIC, 07/23/2023, 9:30. [facility], 3D BILAT SCREEN, 08/18/2024, 10:44. INDICATIONS: Abnormal mammogram. BREAST COMPOSITION: There are scattered areas of fibroglandular density FINDINGS: DIAGNOSTIC CATEGORY 0--INCOMPLETE: NEED ADDITIONAL IMAGING EVALUATION. RIGHT BREAST: FOCAL ASYMMETRY (finding without convex borders usually visible on two orthogonal views), characterized by poorly marginated increased density unchanged with additional spot compression views. Further evaluation by ultrasound will be performed. RECOMMENDATIONS: ULTRASOUND: RIGHT BREAST --We will call the patient back for an ultrasound and provide an additional report. PLEASE NOTE: A NORMAL MAMMOGRAM DOES NOT EXCLUDE THE POSSIBILITY OF BREAST CANCER. A CLINICALLY SUSPICIOUS PALPABLE LUMP SHOULD BE BIOPSIED. THIS FACILITY UTILIZES A REMINDER SYSTEM TO ENSURE THAT ALL PATIENTS RECEIVE REMINDER LETTERS FOR APPOINTMENTS. THIS INCLUDES REMINDERS FOR ROUTINE MAMMOGRAMS, DIAGNOSITC MAMMOGRAMS, OR OTHER BREAST IMAGING INTERVENTIONS WHEN APPROPRIATE. THIS PATIENT WILL BE PLACED IN THE APPROPRIATE REMINDER SYSTEM. Dictated by: Elena Quach MD on 08/22/2024 at 11:13 Approved by: Elena Quach MD on 08/22/2024 at 11:15 Normal [facility] US BREAST RT UNILATERAL COMP LETEon 08-22-2024 US BREAST RT UNILATERAL COMPLETE [place] [id number] Patient: BUCK LONG Phone#: : 1980 Age: 43 Gender: F Pt. Type: Out Account: [id number] Location: Ordering: [facility] Exam Date: 08/22/2024/12:29 Family Phys: Charge Code: [id number] Physician: Magoffin Order #: [id number] Dose#: PROCEDURE: ULTRASOUND BREAST RT COMPARISON: None. INDICATIONS: Follow up mamm TECHNIQUE: Breast ultrasound was performed, with evaluation focusing on all four quadrants. FINDINGS: DIAGNOSTIC CATEGORY 3--PROBABLY BENIGN: FINDING(S) HAS A HIGH PROBABILITY OF A BENIGN; RIGHT BREAST: Simple benign-appearing cyst, anechoic echotexture, mid-breast depth, 10 o'clock position, and 2 mm size.The finding does not appear to correlate with a mammogram finding. Six month follow-up evaluation by mammography to assess stability is recommended. RECOMMENDATIONS: SHORT TERM FOLLOW-UP DIAGNOSTIC MAMMOGRAM RIGHT BREAST IN 6 MONTHS. PLEASE NOTE: A NORMAL MAMMOGRAM DOES NOT EXCLUDE THE POSSIBILITY OF BREAST CANCER. A CLINICALLY SUSPICIOUS PALPABLE LUMP SHOULD BE BIOPSIED. Dictated by: Elena Qucah MD on 08/22/2024 at 15:35 Approved by: Elena Quach MD on 08/22/2024 at 15:39 Normal [facility] 3D MAMM BILAT SCREENon 08-18 3D MAMM BILAT SCREEN [place] [id number] Patient: BUCK LONG Phone#: : 1980 Age: 43 Gender: F Pt. Type: Out Account: [id number] Location: Ordering: [facility] Exam Date: 08/18/2024/10:44 Family Phys: Charge Code: [id number] Physician: Magoffin Order #: [id number] Dose#: PROCEDURE: BILATERAL SCREENING BREAST TOMOSYNTHESIS MAMMOGRAM WITH CAD COMPARISON: [facility], 3D BILAT SCREEN, 07/22/2023, 9:10. [facility], 3D UNILAT RT DIAGNOSTIC, 07/23/2023, 9:30. INDICATIONS: SCREENING BREAST COMPOSITION: There are scattered areas of fibroglandular density FINDINGS: DIAGNOSTIC CATEGORY 0--INCOMPLETE: NEED ADDITIONAL IMAGING EVALUATION. RIGHT BREAST: FOCAL ASYMMETRY (finding without convex borders usually visible on two orthogonal views), characterized by obscured indeterminate morphology, mid-breast depth, 4 o'clock position, and 15 x 13 by 20 mm size. Area has developed since the prior exam. LEFT BREAST: No significant suspicious finding. No significant change has occurred. RECOMMENDATIONS: ADDITIONAL MAMMOGRAPHIC VIEWS REQUIRED: RIGHT BREAST --We will call the patient back for additional views and issue an addendum report. PLEASE NOTE: A NORMAL MAMMOGRAM DOES NOT EXCLUDE THE POSSIBILITY OF BREAST CANCER. A CLINICALLY SUSPICIOUS PALPABLE LUMP SHOULD BE BIOPSIED. THIS FACILITY UTILIZES A REMINDER SYSTEM TO ENSURE THAT ALL PATIENTS RECEIVE REMINDER LETTERS FOR APPOINTMENTS. THIS INCLUDES REMINDERS FOR ROUTINE MAMMOGRAMS, DIAGNOSITC MAMMOGRAMS, OR OTHER BREAST IMAGING INTERVENTIONS WHEN APPROPRIATE. THIS PATIENT WILL BE PLACED IN THE APPROPRIATE REMINDER SYSTEM. Dictated by: Elena Quach MD on 08/18/2024 at 11:06 Approved by: Elena Quach MD on 08/18/2024 at 11:12 Normal [facility] CMP with eGFRon 08-08-2024 AGE 43 years Normal [facility] Comment on above: Performed By: #### 2 21517 #### [facility],[address] [place] [address] Albumin [Mass/Vol] 4.1 g/dL Normal 3.4 - 5.0 g/dL [facility].; [facility]. Comment on above: Performed By: #### 2 62253 #### [place] [address] Albumin/Globulin [Mass ratio] 1.1 {ratio} Normal 0.9 - 1.6 [facility] Comment on above: Performed By: #### 2 99728 #### [place] [address] ALK PHOS 38 U/L Low 46 - 116 [facility] Comment on above: Performed By: #### 2 31442 #### [place] [address] ALT [Catalytic activity/Vol] 26 U/L Normal 16 - 63 U/L [facility].; [facility], [facility]. Comment on above: Performed By: #### 2 22807 #### [place] [address] Anion gap [Moles/Vol] 12 mmol/L Normal 10 - 20 mmol/L [facility].; [facility], [facility]. Comment on above: Performed By: #### 2 01888 #### [place] [address] AST [Catalytic activity/Vol] 15 U/L Normal 13 - 39 U/L [facility].; [facility], [facility]. Comment on above: Performed By: #### 2 91575 #### [place] [address] B/C RATIO 14 ratio Normal 0 - 30 [facility] Comment on above: Performed By: #### 2 88088 #### [place] [address] Bilirubin [Mass/Vol] 0.3 mg/dL Normal 0.2 - 1.0 mg/dL [facility].; [facility] Comment on above: Performed By: #### 2 89924 #### [place] [address] Calcium [Mass/Vol] 9.3 mg/dL Normal 8.5 - 10. 1 mg/dL [facility], [facility].; [facility] Comment on above: Performed By: #### 2 02462 #### [place] [address] Chloride [Moles/Vol] 100 mmol/L Normal 98 - 107 mmol/L [facility].; [facility], [facility]. Comment on above: Performed By: #### 2 12051 #### [place] [address] CMP with eGFR Normal [facility] Comment on above: Result Comment: COMP REHENSIVE METABOLIC PANEL Performed By: #### 2 77098 #### [place] [address] CO2 [Moles/Vol] 28.5 mmol/L Normal 21.0 - 32.0 mmol/L [facility], [facility].; [facility], [facility]. Comment on above: Performed By: #### 2 26638 #### [place] [address] Creatinine [Mass/Vol] 0.71 mg/dL Normal 0.55 - 1.02 mg/dL [facility], [facility].; [facility], [facility]. Comment on above: Performed By: #### 2 20433 #### [place] [address] GFR/1.73 sq M.predicted among non-blacks MDRD (S/P/Bld) [Vol rate/Area] mL/min/{1.73_m2} Normal 60 - 999 [facility] Comment on above: Performed By: #### 2 64342 #### [place] [address] Result Comment: ACCO RDING TO THE NATIONAL KIDNEY DISEASE EDUCATION PROGRAM(NKDE), A NORMAL eGFR IS A VALUE GREATER THAN OR EQUAL TO 60 ML/MIN/1.73 SQ METERS. CHRONIC KIDNEY DISEASE: <60mL/MIN/1.73 SQ METERS KIDNEY FAILURE: <15mL/MIN/1.73 SQ METERS THIS TEST SHOULD ONLY BE USED FOR PATIENTS 18 YEARS OF AGE AND OLDER. Globulin (S) [Mass/Vol] 3.6 g/dL Normal 1.5 - 3.8 g/dL [facility], [facility].; [facility], [facility]. Comment on above: Performed By: #### 2 20559 #### [place] [address] Glucose [Mass/Vol] 76 mg/dL Normal 74 - 106 mg/dL [facility].; [facility], [facility]. Comment on above: Performed By: #### 2 62797 #### [place] [address] Potassium [Moles/Vol] 4.0 mmol/L Normal 3.5 - 5.1 mmol/L [facility].; [facility], [facility]. Comment on above: Performed By: #### 2 16009 #### [place] [address] Protein [Mass/Vol] 7.7 g/dL Normal 6.4 - 8.2 g/dL [facility], [facility].; [facility], [employer]. Comment on above: Performed By: #### 2 16697 #### [place] [address] Sodium [Moles/Vol] 136 mmol/L Normal 136 - 145 mmol/L [facility].; [facility], [employer]. Comment on above: Performed By: #### 2 [id number] #### [place] [address] Urea nitrogen [Mass/Vol] 10 mg/dL Normal 7 - 18 mg/dL [facility], [facility].; [facility]. Comment on above: Performed By: #### 2 73558 #### [facility],[address] [place] [address] LIPID PROFILEon 08-08-2024 Cholesterol [Mass/Vol] 255 mg/dL Abnormal 0 - 240 mg/dL [facility].; [facility], [facility] Comment on above: Performed By: #### 2 78909 #### [address] [address] Cholesterol in HDL [Mass/Vol] 72 mg/dL High 40 - 60 [facility] Comment on above: Performed By: #### 2 05091 #### [address] [address] Cholesterol in LDL [Mass/Vol] 151 mg/dL Abnormal 0 - 129 mg/dL [facility].; [facility], [facility] Comment on above: Performed By: #### 2 01813 #### [address] [address] Cholesterol.total/C holesterol in HDL [Mass ratio] 3.5 {ratio} Normal 0.0 - 5.0 [facility].; [facility], [facility]. Comment on above: Performed By: #### 2 19791 #### [address] [address] Lipid 1996 panel Normal [facility] Comment on above: Result Comment: LIPI D PROFILE Performed By: #### 2 15241 #### [facility],[address] [place] [address] Triglyceride [Mass/Vol] 162 mg/dL Abnormal 0 - 150 mg/dL [facility], [facility].; [facility], [facility]. Comment on above: Performed By: #### 2 89772 #### [facility],[address] [place] [address] Laboratory - Chemistry and C hemistry - challengeon 08-08-2024 Albumin [Mass/Vol] 1.1 g/dL Normal 0.9 - 1.6 [facility].; [facility] ALP [Catalytic activity/Vol] 38 U/L Abnormal 46 - 116 U/L [facility]; [facility] Cholesterol in HDL [Mass or moles/Vol] 72 mg/dL Abnormal 40 - 60 mg/dL [facility]; [employer] [facility] Comprehensive metabolic 2000 panel CMP with eGFR Normal [facility]; [facility] GFR/1.73 sq M.predicted among blacks MDRD (S/P/Bld) [Vol rate/Area] mL/min/{1.73_m2} Normal 60 - 999 {ML/MINUTE} [facility].; [facility], [facility] GFR/1.73 sq M.predicted MDRD (S/P/Bld) [Vol rate/Area] mL/min/{1.73_m2} Normal 60 - 999 {ML/MINUTE} [facility].; [facility] Lipid 1995 panel LIPID PROFILE Normal [facility]; [facility] Urea nitrogen/Creatinine [Mass ratio] 14 {ratio} Normal 0 - 30 {ratio} [facility]; [facility] No Panel Informationon 08-08 AGE 43 {years} Normal [facility]; [employer] [facility] CBC + DIFFon 11-25-2023 Baso # 0.04 x10EE3/UL Normal 0.00 - 0.10 [facility] Comment on above: Performed By: #### 2 [id number] #### [facility],[address] [place] [address] Basophils/100 WBC (Bld) 0.5 % Normal 0.0 - 2.0 % [facility]; [facility], [facility] Comment on above: Performed By: #### 2 58921 #### [facility],[address] [place] [address] CBC + DIFF Normal [facility] Comment on above: Result Comment: CBC- COMPLETE BLOOD COUNT Performed By: #### 2 99718 #### [address] [address] EO # 0.23 x10EE3/UL Normal 0.00 - 0.50 [facility] Comment on above: Performed By: #### 2 57741 #### [address] [address] Eosinophils/100 WBC (Bld) 3.0 % Normal 0.0 - 7.0 % [facility].; [facility], [facility] Comment on above: Performed By: #### 2 26306 #### [place] [address] Erythrocyte distribution width (RBC) [Ratio] 13.5 % Normal 12.0 - 15.6 % [facility], [facility].; [facility], [facility]. Comment on above: Performed By: #### 2 86699 #### [place] [address] Hematocrit (Bld) [Volume fraction] 40.0 % Normal 34.0 - 46.0 % [facility], [facility].; [facility], [facility]. Comment on above: Performed By: #### 2 72393 #### [place] [id number] Hemoglobin (Bld) [Mass/Vol] 13.4 g/dL Normal 12.0 - 16.0 g/dL [facility], [facility].; [facility], [facility]. Comment on above: Performed By: #### 2 51709 #### [address] [address] Lymph # 1.99 x10EE3/UL Normal 0.80 - 2.80 [facility] Comment on above: Performed By: #### 2 62182 #### [place] [id number] Lymphocytes/100 WBC (Bld) 26.6 % Normal 20.0 - 45.0 % [facility].; [facility]. Comment on above: Performed By: #### 2 13708 #### [place] [address] MANUAL DIFF N/A Normal [facility].; [facility]. Comment on above: Performed By: #### 2 11250 #### [place] [address] MCH (RBC) [Entitic mass] 31 pg Normal 27 - 33 pg [facility].; [facility]. Comment on above: Performed By: #### 2 94258 #### [place] [address] MCHC 34 X10 3 Normal 32 - 36 [facility] Comment on above: Performed By: #### 2 06132 #### [place] [address] MCV (RBC) [Entitic vol] 93 fL Normal 80 - 99 fL [facility]; [facility]. Comment on above: Performed By: #### 2 17276 #### [place] [address] [place] # 0.63 x10EE3/UL Normal 0.20 - 1.00 [facility] Comment on above: Performed By: #### 2 16856 #### [place] [address] MONOS % 8.4 % Normal 0.0 - 10.0 [facility] Comment on above: Performed By: #### 2 69636 #### [place] [address] Morphology Tha (Bld) [Interp] N/A Normal [facility].; [facility] Comment on above: Performed By: #### 2 08087 #### [place] [address] Neut # 4.58 x10EE3/UL Normal 1.50 - 7.10 [facility] Comment on above: Performed By: #### 2 58653 #### [facility],[address] [place] [address] Neutrophils/100 WBC (Bld) 61.4 % Normal 46.0 - 76.0 % [facility].; [facility], [facility] Comment on above: Performed By: #### 2 72515 #### [facility],[address] [place] [address] PLATELET 389 x10EE3/UL Normal 150 - 450 [facility] Comment on above: Performed By: #### 2 86145 #### [facility],[address] [place] [address] Platelet mean volume (Bld) [Entitic vol] 7.3 fL Normal 6.6 - 10.5 fL [facility].; [facility], [facility]. Comment on above: Result Comment: AUTO MATED DIFFERENTIAL Performed By: #### 2 57536 #### [address] [address] RBC 4.32 x 10EE6/UL Normal 4.10 - 5.30 [facility] Comment on above: Performed By: #### 2 81915 #### [address] [address] WBC 7.5 x 10EE3/UL Normal 4.5 - 10.8 [facility] Comment on above: Performed By: #### 2 97814 #### [address] [address] CMP with eGFRon 11-25-2023 AGE 43 years Normal [facility] Comment on above: Performed By: #### 2 80598 #### [address] [address] Albumin [Mass/Vol] 3.8 g/dL Normal 3.4 - 5.0 g/dL [facility].; [facility]. Comment on above: Performed By: #### 2 86971 #### [place] [address] Albumin/Globulin [Mass ratio] 1.1 {ratio} Normal 0.9 - 1.6 [facility] Comment on above: Performed By: #### 2 95503 #### [place] [address] ALK PHOS 30 U/L Low 46 - 116 [facility] Comment on above: Performed By: #### 2 50353 #### [place] [address] ALT [Catalytic activity/Vol] 20 U/L Normal 16 - 63 U/L [facility].; [facility], [facility]. Comment on above: Performed By: #### 2 68360 #### [place] [address] Anion gap [Moles/Vol] 13 mmol/L Normal 10 - 20 mmol/L [facility].; [facility], [facility]. Comment on above: Performed By: #### 2 38205 #### [place] [address] AST [Catalytic activity/Vol] 12 U/L Abnormal 13 - 39 U/L [facility].; [facility], [facility]. Comment on above: Performed By: #### 2 64054 #### [place] [address] B/C RATIO 11 ratio Normal 0 - 30 [facility] Comment on above: Performed By: #### 2 98418 #### [place] [address] Bilirubin [Mass/Vol] 0.3 mg/dL Normal 0.2 - 1.0 mg/dL [facility].; [facility], [facility]. Comment on above: Performed By: #### 2 07571 #### [place] [address] Calcium [Mass/Vol] 9.5 mg/dL Normal 8.5 - 10. 1 mg/dL [facility].; [facility], [facility]. Comment on above: Performed By: #### 2 72269 #### [place] [address] Chloride [Moles/Vol] 106 mmol/L Normal 98 - 107 mmol/L [facility].; [facility], [facility] Comment on above: Performed By: #### 2 20855 #### [place] [address] CMP with eGFR Normal [facility] Comment on above: Result Comment: COMP REHENSIVE METABOLIC PANEL Performed By: #### 2 27479 #### [place] [address] CO2 [Moles/Vol] 27.0 mmol/L Normal 21.0 - 32.0 mmol/L [facility].; [facility], [facility]. Comment on above: Performed By: #### 2 59466 #### [place] [address] Creatinine [Mass/Vol] 0.83 mg/dL Normal 0.55 - 1.02 mg/dL [facility].; [facility], [facility]. Comment on above: Performed By: #### 2 41312 #### [place] [address] GFR/1.73 sq M.predicted among non-blacks MDRD (S/P/Bld) [Vol rate/Area] mL/min/{1.73_m2} Normal 60 - 999 [facility] Comment on above: Performed By: #### 2 88383 #### [place] [address] Result Comment: ACCO RDING TO THE NATIONAL KIDNEY DISEASE EDUCATION PROGRAM(NKDE), A NORMAL eGFR IS A VALUE GREATER THAN OR EQUAL TO 60 ML/MIN/1.73 SQ METERS. CHRONIC KIDNEY DISEASE: <60mL/MIN/1.73 SQ METERS KIDNEY FAILURE: <15mL/MIN/1.73 SQ METERS THIS TEST SHOULD ONLY BE USED FOR PATIENTS 18 YEARS OF AGE AND OLDER. Globulin (S) [Mass/Vol] 3.6 g/dL Normal 1.5 - 3.8 g/dL [facility], [facility].; [facility], [facility]. Comment on above: Performed By: #### 2 70696 #### [place] [address] Glucose [Mass/Vol] 89 mg/dL Normal 74 - 106 mg/dL [facility], [facility].; [facility], [facility]. Comment on above: Performed By: #### 2 92070 #### [address] [address] Potassium [Moles/Vol] 4.0 mmol/L Normal 3.5 - 5.1 mmol/L [facility].; [facility], [facility]. Comment on above: Performed By: #### 2 54277 #### [address] [address] Protein [Mass/Vol] 7.4 g/dL Normal 6.4 - 8.2 g/dL [facility], [facility].; [facility], [facility]. Comment on above: Performed By: #### 2 99615 #### [address] [address] Sodium [Moles/Vol] 142 mmol/L Normal 136 - 145 mmol/L [facility], [facility].; [facility], [employer] Comment on above: Performed By: #### 2 11390 #### [address] [address] Urea nitrogen [Mass/Vol] 9 mg/dL Normal 7 - 18 mg/dL [facility], [facility].; [facility], [employer]. Comment on above: Performed By: #### 2 14599 #### [facility],[address] [place] [address] LIPID PROFILEon 11-25-2023 Cholesterol [Mass/Vol] 229 mg/dL Normal 0 - 240 mg/dL [facility].; [facility], [facility]. Comment on above: Performed By: #### 2 80097 #### [facility],[address] [place] [address] Cholesterol in HDL [Mass/Vol] 68 mg/dL High 40 - 60 [facility] Comment on above: Performed By: #### 2 11028 #### [facility],[address] [place] [address] Cholesterol in LDL [Mass/Vol] 135 mg/dL Abnormal 0 - 129 mg/dL [facility].; [facility], [facility]. Comment on above: Performed By: #### 2 92618 #### [place] [id number] Cholesterol.total/C holesterol in HDL [Mass ratio] 3.4 {ratio} Normal 0.0 - 5.0 [facility].; [facility], [facility]. Comment on above: Performed By: #### 2 67802 #### [address] [address] Lipid 1996 panel Normal [facility] Comment on above: Result Comment: LIPI D PROFILE Performed By: #### 2 74852 #### [facility],[address] [place] [address] Triglyceride [Mass/Vol] 129 mg/dL Normal 0 - 150 mg/dL [facility], [facility].; [facility], [facility]. Comment on above: Performed By: #### 2 99812 #### [facility],[address] [place] [address] Laboratory - Chemistry and C hemistry - challengeon 11-25-2023 Albumin [Mass/Vol] 1.1 g/dL Normal 0.9 - 1.6 [facility], [facility].; [facility], [facility]. ALP [Catalytic activity/Vol] 30 U/L Abnormal 46 - 116 U/L [facility]; [facility], [facility] Cholesterol in HDL [Mass or moles/Vol] 68 mg/dL Abnormal 40 - 60 mg/dL [facility].; [facility], [facility] Comprehensive metabolic 2000 panel CMP with eGFR Normal [facility]; [facility], [facility] GFR/1.73 sq M.predicted among blacks MDRD (S/P/Bld) [Vol rate/Area] mL/min/{1.73_m2} Normal 60 - 999 {ML/MINUTE} [facility].; [facility], [facility] GFR/1.73 sq M.predicted MDRD (S/P/Bld) [Vol rate/Area] mL/min/{1.73_m2} Normal 60 - 999 {ML/MINUTE} [facility].; [facility], [facility] Lipid 1996 panel LIPID PROFILE Normal [facility]; [facility], [facility] Urea nitrogen/Creatinine [Mass ratio] 11 {ratio} Normal 0 - 30 {ratio} [facility].; [facility], [facility]. Laboratory - Hematology and Cell countson 11-25-2023 Basophils (Bld) [#/Vol] 0.04 {3/UL} Normal 0.00 - 0.10 {3/UL} [facility].; [facility], [facility]. CBC W Auto Differential panel (Bld) CBC + DIFF Normal [facility]; [facility], [facility] Eosinophils (Bld) [#/Vol] 0.23 {3/UL} Normal 0.00 - 0.50 {3/UL} [facility], [facility]; [facility], [facility] Lymphocytes (Bld) [#/Vol] 1.99 {3/UL} Normal 0.80 - 2.80 {3/UL} [facility], [facility].; [facility], [facility]. MCHC (RBC) [Mass/Vol] 34 {X10_3} Normal 32 - 36 {X10_3} [facility].; [facility] Monocytes (Bld) [#/Vol] 0.63 {3/UL} Normal 0.20 - 1.00 {3/UL} [employer] Monocytes/100 WBC (Bld) 8.4 % Normal 0.0 - 10.0 % [employer], [employer] Neutrophils (Bld) [#/Vol] 4.58 {3/UL} Normal 1.50 - 7.10 {3/UL} [employer]. Platelets (Bld) [#/Vol] 389 {3/UL} Normal 150 - 450 {3/UL} [employer], [employer] RBC (Bld) [#/Vol] 4.32 {6/UL} Normal 4.10 - 5.3 0 {6/UL} [employer], [employer] WBC (Bld) [#/Vol] 7.5 {3/UL} Normal 4.5 - 10.8 {3/UL} [employer].; [employer]. No Panel Informationon 11-24 AGE 43 {years} Normal [employer].; [employer], [employer] Laboratory - Chemistry and C hemistry - challengeon 11-26-2022 Albumin [Mass/Vol] 3.9 g/dL Normal 3.4 - 5.0 g/dL [employer], [employer] Albumin [Mass/Vol] 1.2 g/dL Normal 0.9 - 1.6 [employer] [facility], [employer] ALP [Catalytic activity/Vol] 36 U/L Abnormal 46 - 116 U/L [employer], [employer] ALT [Catalytic activity/Vol] 30 U/L Normal 14 - 59 U/L [employer], [employer] Anion gap [Moles/Vol] 13 mmol/L Normal 10 - 20 mmol/L [employer], [employer] AST [Catalytic activity/Vol] 13 U/L Normal 13 - 39 U/L [facility].; [facility], [facility]. Bilirubin [Mass/Vol] 0.2 mg/dL Normal 0.2 - 1.0 mg/dL [facility].; [facility], [facility]. Calcium [Mass/Vol] 8.7 mg/dL Normal 8.5 - 10. 1 mg/dL [facility].; [facility], [facility] Chloride [Moles/Vol] 100 mmol/L Normal 98 - 107 mmol/L [facility].; [facility], [facility] Cholesterol [Mass/Vol] 233 mg/dL Normal 0 - 240 mg/dL [facility], [facility].; [facility], [facility]. Cholesterol in HDL [Mass or moles/Vol] 68 mg/dL Abnormal 40 - 60 mg/dL [facility].; [facility], [facility] Cholesterol in LDL [Mass/Vol] 141 mg/dL Abnormal 0 - 129 mg/dL [facility], [facility].; [facility], [facility]. Cholesterol.total/C holesterol in HDL [Mass ratio] 3.4 {ratio} Normal 0.0 - 5.0 [facility]; [facility], [facility]. CO2 [Moles/Vol] 28.2 mmol/L Normal 21.0 - 32.0 mmol/L [facility].; [facility], [facility]. Comprehensive metabolic 2000 panel CMP with eGFR Normal [facility]; [facility], [facility] Creatinine [Mass/Vol] 0.58 mg/dL Normal 0.55 - 1.02 mg/dL [facility], [facility].; [facility], [facility]. GFR/1.73 sq M.predicted among blacks MDRD (S/P/Bld) [Vol rate/Area] mL/min/{1.73_m2} Normal 60 - 999 {ML/MINUTE} [facility], [facility].; [facility], [facility]. GFR/1.73 sq M.predicted MDRD (S/P/Bld) [Vol rate/Area] mL/min/{1.73_m2} Normal 60 - 999 {ML/MINUTE} [facility], [facility].; [facility], [facility]. Globulin (S) [Mass/Vol] 3.3 g/dL Normal 1.5 - 3.8 g/dL [facility]; [facility] Glucose [Mass/Vol] 88 mg/dL Normal 74 - 106 mg/dL [facility]; [facility] Lipid 1996 panel LIPID PROFILE Normal [facility]; [facility] Potassium [Moles/Vol] 4.2 mmol/L Normal 3.5 - 5.1 mmol/L [facility]; [facility] Protein [Mass/Vol] 7.2 g/dL Normal 6.4 - 8.2 g/dL [facility]; [facility] Sodium [Moles/Vol] 137 mmol/L Normal 136 - 145 mmol/L [facility]; [employer] [facility] Triglyceride [Mass/Vol] 120 mg/dL Normal 0 - 150 mg/dL [facility]; [facility] TSH Qn 1.48 m[IU]/L Normal 0.35 - 3.74 {uIU/ml} [facility]; [employer] [facility] Urea nitrogen [Mass/Vol] 8 mg/dL Normal 7 - 18 mg/dL [facility]; [employer] [facility] Urea nitrogen/Creatinine [Mass ratio] 14 {ratio} Normal 0 - 30 {ratio} [facility]; [employer] [facility] No Panel Informationon 11-26 AGE 42 {years} Normal [facility]; [employer] [facility] Final Surgical Pathology Rep sravanthi 05-19-2022 Final Surgical Pathology Report . Pathology Reports Accession: Collected Date/Time: Received Date/Time: Pathologist: [id number] 05/14/2022 09:46 EDT 05/18/2022 10:38 EDT MD SUSI HARMON Final Surgical Pathology Report DIAGNOSIS: UTERUS, CERVIX AND BILATERAL FALLOPIAN TUBES: - CERVIX -CHRONIC INFLAMMATION - ENDOMETRIUM -NO SPECIFIC PATHOLOGIC CHANGES - MYOMETRIUM -NO SPECIFIC PATHOLOGIC CHANGES - RIGHT FALLOPIAN TUBE -NO SPECIFIC PATHOLOGIC CHANGES - THE FALLOPIAN TUBE - NO SPECIFIC PATHOLOGIC CHANGES COMMENT: [facility] - [id number] CLINICAL INFORMATION: Procedure: VAGINAL NATURAL ORFICE TRANSLUMINAL ENDOSCOPIC SURGERY HYSTERECTOMY, BILATERAL SALPINGECTOMY, ANTERIOR REPAIR AND DIAGNOSTIC CYSTOSCOPY Preoperative diagnosis: ABNORMAL UTERINE AND VAGINAL BLEEDING, CYSTOCELE, DYSURIA Postoperative diagnosis: ABNORMAL UTERINE AND VAGINAL BLEEDING, CYSTOCELE, DYSURIA SPECIMEN: A UTERUS, CERVIX, BILATERAL FALLOPIAN TUBES - LEFT TUBE ATTACHED, RIGHT TUBE NOT ATTACHED GROSS DESCRIPTION: A. Received in formalin, labeled with the patients name, Case #[id number], and uterus, cervix, bilateral fallopian tubes uterus, cervix with attached left fallopian tube and detached right fallopian tube Weight/dimensions-128 g and measures 10 cm (fundus to cervix), 6 cm (cornu to cornu), 4 cm (anterior to posterior). Serosa-cazares smooth Cervix/endocervix-3.2 cm in diameter and 4 cm in length Qyynhmhxglh-trbykabnkb-ozr ped endometrial cavity measuring 2.5 x 3 cm. The endometrium lining measuring 0.1 cm Srazpychai-vaa-zlvx measuring up to 2.1 cm with no masses or nodules identified Right fallopian tube: Detached right fallopian tube measuring 4 x 0.7 cm Left fallopian tube: Attached left fallopian tube measuring 5 x 0.8 cm RS-5 Cassette Summary: A1-Cervix A2-Anterior endomyometrium A3-Posterior endomyometrium A4-Right fallopian tube A5-Left fallopian tube Dictated by ERIN CARMICHAEL MICROSCOPIC DESCRIPTION: The microscopic examination is performed, except in the case of Gross Only. Electronically Signed by Pathology Report verified by [facility] SUSI HARMON MD Sign out Date: 05/19/2022 15:12 Performing Lab: [facility], [address] [place] [address] Pathology Dept Normal [facility] (MD) Gel ABOon 05-14-2022 ABO/Rh Interp Negative Invalid Interpretation Code [facility] (MD) Comment on above: Performed By: #### A [place] BERNAL ####[address] [place], [place] [address] Gel ABSon 05-14-2022 Antibody Screen Gel Negative Normal [facility] (MD) Comment on above: Performed By: #### A [place] BERNAL ####[place] [address] LABORATORYOrdered By: Wendy Layton on 05-14-2022 ABO/Rh Interp Negative Invalid Interpretation Code AO BB SS Antibody Screen Gel Negative ABSC (05/14/22 7:24 AM) Invalid Interpretation Code AO BB SS HCG ( test) Ql Negative (05/14/22 7:24 AM) Invalid Interpretation Code AO Manual Urine SS test (u) int Not detected Invalid Interpretation Code AO Manual Urine SS PREGUon 05-14-2022 HCG ( test) Ql (U) Negative Normal [facility] (MD) Comment on above: Performed By: #### P REGU #### [place] [id number] test (u) int Not detected Invalid Interpretation Code [facility] (MD) Comment on above: Performed By: #### P REGU #### [place] [id number] .Auto Diffon 04-30-2022 Basophil, Absolute 0.0 10 3/mcL Normal 0.0-0.2 [facility] (MD) Comment on above: Performed By: #### A NADER, CBC, BMP, ABOG, ANSG, GFR, ADIFF #### [address] [address] Basophils/100 WBC (Bld) 0.4 % Normal 0.0-2.5 [facility] (MD) Comment on above: Performed By: #### A NADER, CBC, BMP, ABOG, ANSG, GFR, ADIFF #### [address] [address] Eosinophil, Absolute 0.1 10 3/mcL Normal 0.0-0.4 [facility] (MD) Comment on above: Performed By: #### A NADER, CBC, BMP, ABOG, ANSG, GFR, ADIFF #### [address] [address] Eosinophils/100 WBC (Bld) 2.2 % Normal 0.0-7.0 [facility] (MD) Comment on above: Performed By: #### A NADER, CBC, BMP, ABOG, ANSG, GFR, ADIFF #### [address] [address] Lymphocyte, Absolute 1.8 10 3/mcL Normal 0.8-3.9 [facility] (MD) Comment on above: Performed By: #### A NADER, CBC, BMP, ABOG, ANSG, GFR, ADIFF #### [address] [address] Lymphocytes/100 WBC (Bld) 25.9 % Normal 10.0-50.0 [facility] (MD) Comment on above: Performed By: #### A NADER, CBC, BMP, ABOG, ANSG, GFR, ADIFF #### [address] [address] Monocyte, Absolute 0.6 10 3/mcL Normal 0.2-1.0 [facility] (MD) Comment on above: Performed By: #### A NADER, CBC, BMP, ABOG, ANSG, GFR, ADIFF #### [address] [address] Monocytes/100 WBC (Bld) 8.3 % Normal 1.7-13.0 [facility] (MD) Comment on above: Performed By: #### A NADER, CBC, BMP, ABOG, ANSG, GFR, ADIFF #### [address] [address] Neutrophils/100 WBC (Bld) 63.2 % Normal 37.0-80.0 [facility] (MD) Comment on above: Performed By: #### A NADER, CBC, BMP, ABOG, ANSG, GFR, ADIFF #### [address] [address] .GFRon 04-30-2022 GFR 117 ml/min/1.73sqm Normal [facility] (MD) Comment on above: Result Comment: GFR Population mean for , Non- Americans Ages 20-29 = 116 mL/min/1.73 sq.m. Ages 30-39 = 107 mL/min/1.73 sq.m. Ages 40-49 = 99 mL/min/1.73 sq.m. Ages 50-59 = 93 mL/min/1.73 sq.m. Ages 60-69 = 85 mL/min/1.73 sq.m. Ages 70+ = 75 mL/min/1.73 sq.m. Chronic Kidney Disease: Less than 60 mL/min/1.73 square meters End Stage Renal Disease: Less than 15 mL/min/1.73 square meters Performed By: #### A NADER, CBC, BMP, ABOG, ANSG, GFR, ADIFF #### [address] [address] GFR Non- 96 ml/min/1.73sqm Normal [facility] (MD) Comment on above: Result Comment: GFR Population mean for , Non- Americans Ages 20-29 = 116 mL/min/1.73 sq.m. Ages 30-39 = 107 mL/min/1.73 sq.m. Ages 40-49 = 99 mL/min/1.73 sq.m. Ages 50-59 = 93 mL/min/1.73 sq.m. Ages 60-69 = 85 mL/min/1.73 sq.m. Ages 70+ = 75 mL/min/1.73 sq.m. Chronic Kidney Disease: Less than 60 mL/min/1.73 square meters End Stage Renal Disease: Less than 15 mL/min/1.73 square meters Performed By: #### A NADER, CBC, BMP, ABOG, ANSG, GFR, ADIFF #### [address] [address] .NEUABSon 04-30-2022 Neutrophil, Absolute 4.3 10 3/mcL Normal 2.9-6.2 [facility] (MD) Comment on above: Performed By: #### A NADER, CBC, BMP, ABOG, ANSG, GFR, ADIFF #### [address] [address] BMPon 04-30-2022 BUN/Creatinine Ratio 13 ratio Normal 7-27 [facility] (MD) Comment on above: Performed By: #### A NADER, CBC, BMP, ABOG, ANSG, GFR, ADIFF #### [address] [address] Calcium [Mass/Vol] 9.0 mg/dL Normal 8.4-10.2 [facility] (MD) Comment on above: Performed By: #### A NADER, CBC, BMP, ABOG, ANSG, GFR, ADIFF #### [address] [address] Chloride [Moles/Vol] 105 mmol/L Normal 98-107 [facility] (MD) Comment on above: Performed By: #### A NADER, CBC, BMP, ABOG, ANSG, GFR, ADIFF #### [address] [address] CO2 [Moles/Vol] 26 mmol/L Normal 22-29 [facility] (MD) Comment on above: Performed By: #### A NADER, CBC, BMP, ABOG, ANSG, GFR, ADIFF #### [address] [address] Creatinine [Mass/Vol] 0.68 mg/dL Normal 0.55-1.02 [facility] (MD) Comment on above: Performed By: #### A NADER, CBC, BMP, ABOG, ANSG, GFR, ADIFF #### [address] [address] Electrolyte Balance 11.0 mEq/L Normal 4.0-15.0 [facility] (MD) Comment on above: Performed By: #### A NADER, CBC, BMP, ABOG, ANSG, GFR, ADIFF #### [address] [address] Glucose [Mass/Vol] 85 mg/dL Normal 70-105 [facility] (MD) Comment on above: Performed By: #### A NADER, CBC, BMP, ABOG, ANSG, GFR, ADIFF #### [address] [address] Potassium [Moles/Vol] 4.3 mmol/L Normal 3.5-5.1 [facility] (MD) Comment on above: Performed By: #### A NADER, CBC, BMP, ABOG, ANSG, GFR, ADIFF #### [address] [address] Sodium [Moles/Vol] 142 mmol/L Normal 136-145 [facility] (MD) Comment on above: Performed By: #### A NADER, CBC, BMP, ABOG, ANSG, GFR, ADIFF #### [address] [address] Urea nitrogen [Mass/Vol] 9 mg/dL Normal 7-18 [facility] (MD) Comment on above: Performed By: #### A NADER, CBC, BMP, ABOG, ANSG, GFR, ADIFF #### [address] [address] CBCon 04-30-2022 Erythrocyte distribution width (RBC) [Ratio] 14.7 % High 11.5-14.5 [facility] (MD) Comment on above: Order Comment: Pre-A dmission Testing Performed By: #### A NADER, CBC, BMP, ABOG, ANSG, GFR, ADIFF #### [address] [address] Hematocrit (Bld) [Volume fraction] 39.1 % Normal 37.0-47.0 [facility] (MD) Comment on above: Order Comment: Pre-A dmission Testing Performed By: #### A NADER, CBC, BMP, ABOG, ANSG, GFR, ADIFF #### [address] [address] Hgb 13.1 G/dL Normal 12.0-16.0 [facility] (MD) Comment on above: Order Comment: Pre-A dmission Testing Performed By: #### A NADER, CBC, BMP, ABOG, ANSG, GFR, ADIFF #### [address] [address] MCH (RBC) [Entitic mass] 29.2 pg Normal 27.0-31.2 [facility] (MD) Comment on above: Order Comment: Pre-A dmission Testing Performed By: #### A NADER, CBC, BMP, ABOG, ANSG, GFR, ADIFF #### [address] [address] MCHC 33.5 G/dL Normal 33.0-37.0 [facility] (MD) Comment on above: Order Comment: Pre-A dmission Testing Performed By: #### A NADER, CBC, BMP, ABOG, ANSG, GFR, ADIFF #### [address] [address] MCV (RBC) [Entitic vol] 87.3 fL Normal 80.0-94.0 [facility] (MD) Comment on above: Order Comment: Pre-A dmission Testing Performed By: #### A NADER, CBC, BMP, ABOG, ANSG, GFR, ADIFF #### [address] [address] Platelet 395 10 3/mcL Normal 130-400 [facility] (MD) Comment on above: Order Comment: Pre-A dmission Testing Performed By: #### A NADER, CBC, BMP, ABOG, ANSG, GFR, ADIFF #### [address] [address] Platelet mean volume (Bld) [Entitic vol] 7.1 fL Low 7.4-10.4 [facility] (MD) Comment on above: Order Comment: Pre-A dmission Testing Performed By: #### A NADER, CBC, BMP, ABOG, ANSG, GFR, ADIFF #### [address] [address] RBC 4.47 10 6/mcL Normal 4.20-5.40 [facility] (MD) Comment on above: Order Comment: Pre-A dmission Testing Performed By: #### A NADER, CBC, BMP, ABOG, ANSG, GFR, ADIFF #### [address] [address] WBC 6.8 10 3/mcL Normal 4.6-10.8 [facility] (MD) Comment on above: Order Comment: Pre-A dmission Testing Performed By: #### A NADER, CBC, BMP, ABOG, ANSG, GFR, ADIFF #### [address] [address] Gel ABOon 04-30-2022 ABO/Rh Interp Negative Invalid Interpretation Code [facility] (MD) Comment on above: Performed By: #### A NADER, CBC, BMP, ABOG, ANSG, GFR, ADIFF #### [place] [address] [place], [place] [address] Gel ABSon 04-30-2022 Antibody Screen Gel Negative Normal [facility] (MD) Comment on above: Performed By: #### A NADER, CBC, BMP, ABOG, ANSG, GFR, ADIFF #### [address] [address] LABORATORYOrdered By: Ritu Shetty on 04-30-2022 ABO/Rh Interp Negative Invalid Interpretation Code AO BB SS Antibody Screen Gel Negative ABSC (04/30/22 8:29 AM) Invalid Interpretation Code AO BB SS LABORATORYOrdered By: Wendy Layton on 04-30-2022 Basophil, Absolute 0.0 103/mcL Invalid Interpretation Code 0.0 - 0.2 10^3/mcL AO Workflow SS Basophils/100 WBC (Bld) 0.4 % Invalid Interpretation Code 0.0 - 2.5 % AO Workflow SS Eosinophil, Absolute 0.1 103/mcL Invalid Interpretation Code 0.0 - 0.4 10^3/mcL AO Workflow SS Eosinophils/100 WBC (Bld) 2.2 % Invalid Interpretation Code 0.0 - 7.0 % AO Workflow SS Erythrocyte distribution width (RBC) [Ratio] 14.7 % Invalid Interpretation Code 11.5 - 14.5 % AO Workflow SS Hematocrit (Bld) [Volume fraction] 39.1 % Invalid Interpretation Code 37.0 - 47.0 % AO Workflow SS Hemoglobin (Bld) [Mass/Vol] 13.1 G/dL Invalid Interpretation Code 12.0 - 16.0 G/dL AO Workflow SS Lymphocyte, Absolute 1.8 103/mcL Invalid Interpretation Code 0.8 - 3.9 10^3/mcL AO Workflow SS Lymphocytes/100 WBC (Bld) 25.9 % Invalid Interpretation Code 10.0 - 50.0 % AO Workflow SS MCH (RBC) [Entitic mass] 29.2 pg Invalid Interpretation Code 27.0 - 31.2 pg AO Workflow SS MCHC 33.5 G/dL Invalid Interpretation Code 33.0 - 37.0 G/dL AO Workflow SS MCV (RBC) [Entitic vol] 87.3 fL Invalid Interpretation Code 80.0 - 94.0 fL AO Workflow SS Monocyte, Absolute 0.6 103/mcL Invalid Interpretation Code 0.2 - 1.0 10^3/mcL AO Workflow SS Monocytes/100 WBC (Bld) 8.3 % Invalid Interpretation Code 1.7 - 13.0 % AO Workflow SS Neutrophil, Absolute 4.3 103/mcL Invalid Interpretation Code 2.9 - 6.2 10^3/mcL AO Workflow SS Neutrophils/100 WBC (Bld) 63.2 % Invalid Interpretation Code 37.0 - 80.0 % AO Workflow SS Platelet mean volume (Bld) [Entitic vol] 7.1 fL Invalid Interpretation Code 7.4 - 10.4 fL AO Workflow SS Platelets (Bld) [#/Vol] 395 103/mcL Invalid Interpretation Code 130 - 400 10^3/mcL AO Workflow SS RBC (Bld) [#/Vol] 4.47 106/mcL Invalid Interpretation Code 4.20 - 5.40 10^6/mcL AO Workflow SS WBC (Bld) [#/Vol] 6.8 103/mcL Invalid Interpretation Code 4.6 - 10.8 10^3/mcL AO Workflow SS LABORATORYOrdered By: SYSTEM SYSTEM on 04-30-2022 Calcium [Mass/Vol] 9.0 mg/dL Invalid Interpretation Code 8.4 - 10.2 mg/dL AO ADM SS Chloride [Moles/Vol] 105 mmol/L Invalid Interpretation Code 98 - 107 mmol/L AO ADM SS CO2 [Moles/Vol] 26 mmol/L Invalid Interpretation Code 22 - 29 mmol/L AO ADM SS Creatinine [Mass/Vol] 0.68 mg/dL Invalid Interpretation Code 0.55 - 1.02 mg/dL AO ADM SS Electrolyte Balance 11.0 mEq/L Invalid Interpretation Code 4.0 - 15.0 mEq/L AO ADM SS GFR 117 ml/min/1.73sqm Invalid Interpretation Code AO Chemistry S GFR Non- 96 ml/min/1.73sqm Invalid Interpretation Code AO Chemistry S Glucose [Mass/Vol] 85 mg/dL Invalid Interpretation Code 70 - 105 mg/dL AO ADM SS Potassium [Moles/Vol] 4.3 mmol/L Invalid Interpretation Code 3.5 - 5.1 mmol/L AO ADM SS Sodium [Moles/Vol] 142 mmol/L Invalid Interpretation Code 136 - 145 mmol/L AO ADM SS Urea nitrogen [Mass/Vol] 9 mg/dL Invalid Interpretation Code 7 - 18 mg/dL AO ADM SS Urea nitrogen/Creatinine [Mass ratio] 13 ratio Invalid Interpretation Code 7 - 27 ratio AO ADM SS Final Surgical Pathology Rep sravanthi 03-25-2022 Final Surgical Pathology Report . Pathology Reports Accession: Collected Date/Time: Received Date/Time: Pathologist: [id number] 03/23/2022 09:00 EST 03/24/2022 08:46 NETTE SILVESTRE MD Final Surgical Pathology Report DIAGNOSIS: ENDOMETRIAL BIOPSY: - SECRETORY ENDOMETRIUM - NEGATIVE FOR HYPERPLASIA OR MALIGNANCY COMMENT: [facility] - [id number] CLINICAL INFORMATION: OTHER SPECIFIED ABNORMAL UTERINE AND VAGINAL BLEEDING Procedure: BIOPSY SPECIMEN: A ENDOMETRIAL TISSUE, ENDOMETRIUM GROSS DESCRIPTION: A. Received in formalin labeled with the patient's name and endometrium is about 1 cc of blood-tinged mucus. TS 1 Dictated by HUMERA LOZANO MICROSCOPIC DESCRIPTION: The microscopic examination is performed, except in the case of Gross Only. Electronically Signed by Pathology Report verified by [facility] NETTE HUTCHINS Sign out Date: 03/25/2022 15:32 Performing Lab: [facility], [address] [place] [address] Pathology Dept Normal [facility] (MD) CULTURE, URINE, ROUTINEon CULTURE, URINE, ROUTINE SEE NOTE Abnormal [facility] Comment on above: Result Comment: CULTURE, URINE, ROUTINE Micro Number: [id number] Test Status: Final Specimen Source: Urine Specimen Quality: Adequate Result: 50,000-100,000 CFU/mL of Escherichia coli E.coli INT ROMMEL AMOX/CLAVULANATE S 8 AMPICILLIN R >=32 AMP/SULBACTAM S 8 CEFAZOLIN NR <=4 2 CEFEPIME S <=1 CEFTAZIDIME S <=1 CEFTRIAXONE S <=1 CIPROFLOXACIN S <=0.25 GENTAMICIN S <=1 IMIPENEM S <=0.25 LEVOFLOXACIN S <=0.12 NITROFURANTOIN S <=16 PIP/TAZOBACTAM S <=4 TOBRAMYCIN S <=1 TRIMETHOPRIM/SULFA R >=320 S=Susceptible I=Intermediate R=Resistant * = Not Tested NR = Not Reported NN = See Therapy Comments THERAPY COMMENTS Note 1: For infections other than uncomplicated UTI caused by E. coli, K. pneumoniae or P. mirabilis: Cefazolin is resistant if ROMMEL > or = 8 mcg/mL. (Distinguishing susceptible versus intermediate for isolates with ROMMEL < or = 4 mcg/mL requires additional testing.) Note 2: For uncomplicated UTI caused by E. coli, K. pneumoniae or P. mirabilis: Cefazolin is susceptible if ROMMEL <32 mcg/mL and predicts susceptible to the oral agents cefaclor, cefdinir, cefpodoxime, cefprozil, cefuroxime, cephalexin and loracarbef. Performed By: #### 3 95 #### [facility] [address], [address] [place] [address] Manager Copy: Miguel José MD Laboratory - Chemistry and C hemistry - challengeon 11-27-2021 Bilirubin Ql (U) Negative Normal [facility] [employer] Ketones Ql (U) Negative Normal [facility], [employer]. pH (U) 6.0 [pH] Normal [employer].; [employer]. Specific gravity (U) [Rel density] 1.010 Normal [employer].; [facility], [employer]. Urobilinogen Qn (U) 0.2 mg/dL Normal [facility] [employer]. Laboratory - Hematology and Cell countson 11-27-2021 Hemoglobin Ql (U) Large Abnormal [employer], [employer]. Laboratory - Specimen inform ationon 11-27-2021 Appearance (U) clear Normal [facility] [employer]. Color (U) Yellow Normal [employer].; [facility], [employer]. Laboratory - Urinalysison Glucose Test strip (U) [Mass/Vol] Negative Normal [facility].; [place] [employer] Leukocyte esterase Test strip Ql (U) large Abnormal [facility].; [place] [employer], [employer] Nitrite Ql (U) Negative Normal [facility] [place] [employer] Protein Ql (U) Negative Normal [facility] [employer] No Panel Informationon 11-27 CULTURE, URINE, ROUTINE SEE NOTE Abnormal [facility].; [employer] Laboratory - Chemistry and C hemistry - challengeon 11-26-2021 Albumin [Mass/Vol] 4.1 g/dL Normal 3.4 - 5.0 g/dL [facility].; [place] [employer], [facility] Albumin [Mass/Vol] 1.2 g/dL Normal 0.9 - 1.[address] [facility].; [place] [employer]. ALP [Catalytic activity/Vol] 37 U/L Abnormal 46 - 116 U/L [facility].; [place] [employer], [employer]. ALT [Catalytic activity/Vol] 17 U/L Normal 14 - 59 U/L [facility].; [place] [employer], [facility]. Anion gap [Moles/Vol] 14 mmol/L Normal 10 - 20 mmol/L [facility].; [place] [employer], [employer]. AST [Catalytic activity/Vol] 12 U/L Abnormal 13 - 39 U/L [facility].; [employer], [employer]. Bilirubin [Mass/Vol] 0.3 mg/dL Normal 0.2 - 1.0 mg/dL [facility].; [employer], [employer]. Calcium [Mass/Vol] 9.3 mg/dL Normal 8.5 - 10. 1 mg/dL [facility].; [employer], [employer]. Chloride [Moles/Vol] 105 mmol/L Normal 98 - 107 mmol/L [facility].; [place] [employer], [employer] Cholesterol [Mass/Vol] 242 mg/dL Abnormal 0 - 240 mg/dL [facility].; [facility], [facility]. Cholesterol in HDL [Mass or moles/Vol] 62 mg/dL Abnormal 40 - 60 mg/dL [facility]; [facility] Cholesterol in LDL [Mass/Vol] 147 mg/dL Abnormal 0 - 129 mg/dL [facility].; [facility], [facility] Cholesterol.total/C holesterol in HDL [Mass ratio] 3.9 {ratio} Normal 0.0 - 5.0 [facility]; [facility], [facility] CO2 [Moles/Vol] 23.9 mmol/L Normal 21.0 - 32.0 mmol/L [facility]; [facility], [facility] Comprehensive metabolic 2000 panel CMP with eGFR Normal [facility]; [facility], [facility] Creatinine [Mass/Vol] 0.76 mg/dL Normal 0.55 - 1.02 mg/dL [facility]; [facility], [facility]. GFR/1.73 sq M.predicted among blacks MDRD (S/P/Bld) [Vol rate/Area] mL/min/{1.73_m2} Normal 60 - 999 {ML/MINUTE} [facility].; [facility], [facility]. GFR/1.73 sq M.predicted MDRD (S/P/Bld) [Vol rate/Area] mL/min/{1.73_m2} Normal 60 - 999 {ML/MINUTE} [facility], [facility].; [facility], [facility]. Globulin (S) [Mass/Vol] 3.4 g/dL Normal 1.5 - 3.8 g/dL [facility].; [facility], [facility]. Glucose [Mass/Vol] 87 mg/dL Normal 74 - 106 mg/dL [facility].; [facility], [facility]. Lipid 1996 panel LIPID PROFILE Normal [facility]; [facility], [facility] Potassium [Moles/Vol] 4.3 mmol/L Normal 3.5 - 5.1 mmol/L [facility]; [facility], [facility] Protein [Mass/Vol] 7.5 g/dL Normal 6.4 - 8.2 g/dL [place] [employer].; [employer]. Sodium [Moles/Vol] 139 mmol/L Normal 136 - 145 mmol/L [employer].; [employer]. Triglyceride [Mass/Vol] 164 mg/dL Abnormal 0 - 150 mg/dL [employer].; [employer]. Urea nitrogen [Mass/Vol] 8 mg/dL Normal 7 - 18 mg/dL [employer].; [employer]. Urea nitrogen/Creatinine [Mass ratio] 11 {ratio} Normal 0 - 30 {ratio} [employer].; [employer]. No Panel Informationon 11-26 AGE 41 {years} Normal [employer].; [employer]. CNOVon 09-12-2021 CNOV Office Visit (TANGELA ) -- BUCK LONG ([id number]) 1980 F Date Time Provider Department 09/12/21 7:30 AM MARY VAZQUEZ During your visit today, we recorded the following information about you: Weight Height 65.8 kg 1.6 m Mary Vazquez APRN.SHEEP HERDER 09/12/2021 8:08 AM Signed Female Pelvic Medicine AND Reconstructive Surgery Follow-Up Buck Brown Ethan is a 40 year old female, who presents for an initial pessary fitting. Last visit 08/20/[address] Suarez POP-Q: Prolapse Noted: Yes Aa = 0 Ba = 0 C = -9.0 gh = 3.5 pb = 3.5 tvl = 11 Ap = -1.5 Bp = -1.5 D = -10 History since last visit: States biggest symptom is feeling like she doesn't empty bladder well. And she can't jump without leaking. 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 Mary Vazquez APRN.SHEEP HERDER [employer] Supervisor offered: Patient declines. OBJECTIVE: Ht 5' 3 (1.60m) Wt 145 lb (65.8kg) LMP 08/09/2021 BMI 25.69 kg/(m2). General: Well appearing, alert, in no acute distress, well-hydrated, well nourished. Abdomen: Deferred Pelvic: Ext. Genitalia: No lesions or other abnormalities Vagina: normal epithelium Patient fit with a #4 ring with support and knob pessary. The pessary was positioned properly within the vagina. The patient reported no discomfort and the pessary stayed in placed with ambulating and using the restroom. She was able to remove and replace the pessary without difficulty. Plan: 1. Encounter for fitting and adjustment of pessary - Initial pessary fitting. Pessary care discussed. 2. Cystocele, midline - As above #1. 3. Incomplete bladder emptying - As above #1. 4. ROSELYN (stress urinary incontinence, female) - As above #1. Mary Vazquez APRN.YARIEL Vazquez APRN.YARIEL 09/12/2021 7:56 AM Signed To call with pain/discomfort, vaginal bleeding or difficulty emptying bladder or bowels. Follow-up in 6 months. Referring Provider: MARY VAZQUEZ [[id number]] Allergies As of Date: 09/12/2021 Noted Allergy Reaction CODEINE 03/24/2005 KEFLEX (CEPHALEXIN) 03/25/2005 11 - Vomiting PENICILLINS 03/24/2005 Date Reviewed: 09/12/2021 Reviewed by: Mary Vazquez APRN.CNP - Fully Assessed Reason for Visit: Prolapse [1457] Primary Visit Diagnosis:Encounter for fitting and adjustment of pessary [Z46.89] Other Visit Diagnoses:Cystocele, midline [N81.11] Incomplete bladder emptying [R33.9] ROSELYN (stress urinary incontinence, female) [N39.3] Prescriptions as of 09/12/2021 - MULTIVITAMIN ORAL Take by mouth. - fluticasone propionate (FLONASE NASAL) Use in the nose. Problem List As Of Date: 09/12/2021 (None) Other instructions from your clinician: To call with pain/discomfort, vaginal bleeding or difficulty emptying bladder or bowels. Follow-up in 6 months. Disposition: Return in about 6 months (around 03/15/2022) for pessary check. Follow-up and Disposition History for Encounter Date Provider Department Center 09/12/2021 [id number] VAZQUEZ Rachel [facility] Encounter Status:Closed by MARY VAZQUEZ on 09/12/21 Normal [facility] Bacteria Ur Culton 2 Bacteria identified Cx Nom (U) CULTURE, URINE: No growth (<100 CFU/ml) Normal [facility] Comment on above: Performed By: #### 6 30-4 #### [facility] CLIA [id number] [address] CNOVon 08-20-2021 CNOV Office Visit (TANGELA ) -- BUCK LONG ([id number]) 1980 F Date Time Provider Department 08/20/21 10:00 AM CIELO SUAREZ During your visit today, we recorded the following information about you: Weight Height Last Period 65.8 kg 1.6 m 08/09/21 Cielo Suarez MD 08/20/2021 9:51 AM Signed Schedule pessary fitting with BENITO Olguin MD 08/20/2021 10:05 AM Signed Female Pelvic Medicine AND Reconstructive Surgery Consult CHIEF COMPLAINT: Buckpinky Long is a 40 year old female who presents for consultation requested by Handy Mcpherson PA-C for an opinion regarding cystocele and PVR 104 ml. HISTORY OF PRESENT ILLNESS: Pt reports ROSELYN since she had children. She has had worsening urinary frequency and urgency over the past year. She has been experiencing frequent UTI-like symptoms including dysuria, worsening urgency, and voiding frequent small amounts. She has tried increasing fluid intake, Azo, and probiotics. Symptoms seem to worsen around her period, burning sensation throughout abdomen and spasms. 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 No (0) Usually experience heaviness or dullness in the pelvic area? Yes, somewhat bothersome (2) Usually have a bulge or something falling out that you can see or feel in your vaginal area? No (0) Ever have to push on the vagina or around the rectum to have or complete a bowel movement? No (0) Usually experience a feeling of incomplete bladder emptying? Yes, moderately bothersome (3) Ever have to push up on a bulge in the vaginal area with your fingers to start or complete urination? No (0) Feel you need to strain too hard to have a bowel movement? Yes, somewhat bothersome (2) Feel you have not completely emptied your bowels at the end of a bowel movement? No (0) Usually lose stool beyond your control if your stool is well formed? No (0) Usually lose stool beyond your control if your stool is loose? No (0) Usually lose gas from the rectum beyond your control? No (0) Usually have pain when you pass your stool? No (0) Experience a strong sense of urgency and have to paul to the bathroom to have a bowel movement? No (0) Does part of your bowel ever pass through the rectum and bulge outside during or after a bowel movement? No (0) Usually experience frequent urination? Yes, moderately bothersome (3) Usually experience urine leakage associated with a feeling of urgency, that is, a strong sensation of needing to go to the bathroom? No (0) Usually experience urine leakage related to coughing, sneezing or laughing? Yes, moderately bothersome (3) Usually experience small amounts of urine leakage (that is, drops)? No (0) Usually experience difficulty emptying your bladder? Yes, moderately bothersome (3) Usually experience pain or discomfort in the lower abdomen or genital region? No (0) Do you have pain associated with your prolapse (not pressure or fullness) No PAST SURGICAL HISTORY Procedure Laterality Date - NONE PAST MEDICAL HISTORY Diagnosis Date - NONE FAMILY HISTORY Problem Relation Age of Onset - Hypertension Mother - Heart Father - No Known Problems Brother - No Known Problems Brother - Stroke Maternal Grandmother - Stroke Maternal Grandfather - Diabetes Maternal Grandfather - Dementia Paternal Grandmother - Heart Paternal Grandmother - No Known Problems Paternal Grandfather - Breast Cancer Maternal Aunt - Ovarian cancer Maternal Aunt Current Outpatient Medications Medication Sig - MULTIVITAMIN ORAL Take by mouth. - fluticasone propionate (FLONASE NASAL) Use in the nose. - DESOGEN 0.15 MG-30 MCG TAB Take one(1) tablet daily. (Patient not taking: Reported on 03/14/2021) No current facility-administered medications for this visit. 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 Skin: Negative for rash or itching. Psychiatric: Negative for depression. Reports nor (more content not included)... Normal [facility] UA DIP, URINE (POC)on 2021 BILIRUBIN UA (POCT) Negative Negative [facility] CLARITY UA (POCT) Clear [facility] COLOR UA (POCT) Yellow [facility] GLUCOSE UA (POCT) Negative Negative mg/dL [facility] HEMOGLOBIN/BLOOD UA (POCT) Small Abnormal Negative [facility] KETONE UA (POCT) Negative Negative mg/dL [facility] LEUKOCYTES UA (POCT) Negative Negative [facility] NITRITE UA (POCT) Negative Negative [facility] PH UA (POCT) 7.0 4.5 - 8.0 [facility] Protein Ql (U) Negative Negative mg/dL [facility] SPECIFIC GRAVITY UA (POCT) 1.010 1.005 - 1.030 [facility] UROBILINOGEN UA (POCT) 0.2 E.U./dL Normal E.U./dL [facility] Urinalysis complete panel (U )on 08-20-2021 Bilirubin Ql (U) Negative Normal Negative [facility] Comment on above: Order Comment: Speci men Type: URINE SPECIMEN Ordering Facility: [facility] Address: [address] [place] [address] Performed By: #### 2 4356-8 #### [facility] CLIA [id number] [address] Clarity (Unsp spec) Clear Normal Clear [facility] Comment on above: Order Comment: Speci men Type: URINE SPECIMEN Ordering Facility: [facility] Address: [address] [place] [address] Performed By: #### 2 4356-8 #### [facility] CLIA [id number] [address] Color (U) Colorless Normal yellow [facility] Comment on above: Order Comment: Speci men Type: URINE SPECIMEN Ordering Facility: [facility] Address: [address] [place] [address] Performed By: #### 2 4356-8 #### [facility] CLIA [id number] [address] Epithelial cells LM.HPF (Urine sed) [#/Area] Few Normal [facility] Comment on above: Order Comment: Speci men Type: URINE SPECIMEN Ordering Facility: [facility] Address: [address] [place] [address] Performed By: #### 2 4356-8 #### [facility] CLIA [id number] [address] [place] Glucose Test strip (U) [Mass/Vol] Negative Normal Negative [facility] Comment on above: Order Comment: Speci men Type: URINE SPECIMEN Ordering Facility: [facility] Address: [address] [address] Performed By: #### 2 4356-8 #### [facility] CLIA [id number] [address] [facility] Hemoglobin Ql (U) Trace Abnormal Negative [facility] Comment on above: Order Comment: Speci men Type: URINE SPECIMEN Ordering Facility: [facility] Address: [address] [place] [address] Performed By: #### 2 4356-8 #### [facility] CLIA [id number] [address] Ketones Ql (U) Negative Normal Negative [facility] Comment on above: Order Comment: Speci men Type: URINE SPECIMEN Ordering Facility: [facility] Address: [address] [place] [address] Performed By: #### 2 4356-8 #### [facility] CLIA [id number] [address] Leukocyte esterase Test strip Ql (U) Negative Normal Negative [facility] Comment on above: Order Comment: Speci men Type: URINE SPECIMEN Ordering Facility: [facility] Address: [address] [address] Performed By: #### 2 4356-8 #### [facility] CLIA [id number] [address] [place] Nitrite Ql (U) Negative Normal Negative [facility] Comment on above: Order Comment: Speci men Type: URINE SPECIMEN Ordering Facility: [facility] Address: [address] [place] [address] Performed By: #### 2 4356-8 #### [facility] CLIA [id number] [address] [place] pH (U) 6.5 [pH] Normal 5.0-8.0 [facility] Comment on above: Order Comment: Speci men Type: URINE SPECIMEN Ordering Facility: [facility] Address: [address] [place] [address] Performed By: #### 2 4356-8 #### [facility] CLIA [id number] [address] Protein (U) [Mass/Vol] Negative Normal Negative [facility] Comment on above: Order Comment: Speci men Type: URINE SPECIMEN Ordering Facility: [facility] Address: [address] [place] [address] Performed By: #### 2 4356-8 #### [facility] CLIA [id number] [address] RBC LM.HPF (Urine sed) [#/Area] 0-3 /HPF Normal 0-3 /HPF [facility] Comment on above: Order Comment: Speci men Type: URINE SPECIMEN Ordering Facility: [facility] Address: [address] [place] [address] Performed By: #### 2 4356-8 #### [facility] CLIA [id number] [address] Specific gravity (U) [Rel density] 1.007 Normal 1.005-1.030 [facility] Comment on above: Order Comment: Speci men Type: URINE SPECIMEN Ordering Facility: [facility] Address: [address] [place] [address] Performed By: #### 2 4356-8 #### [facility] CLIA [id number] [address] Urobilinogen Ql (U) Normal Normal Negative [facility] Comment on above: Order Comment: Speci men Type: URINE SPECIMEN Ordering Facility: [facility] Address: [address] [place] [address] Performed By: #### 2 4356-8 #### [facility] CLIA [id number] [address] [place] [address] [place] WBC LM.HPF (Urine sed) [#/Area] 0-5 /HPF Normal 0-5 /HPF [facility] Comment on above: Order Comment: Speci men Type: URINE SPECIMEN Ordering Facility: [facility] Address: [address] [place] [address] Performed By: #### 2 4356-8 #### [facility] CLIA [id number] [address] [facility]-20[facility] ([id number]) 1980 F Date Time Provider Department 08/19/21 CIELO SUAREZ UROSTEPHAN During your visit today, we recorded the following information about you: Fred ORTIZ 08/19/2021 9:37 AM Signed Patient has been contacted via: Phone To reschedule appointment with Provider: Alcides Date of appointment: 08/19/21 Reason: No Show Attempt: First Attempt Patient call back number given: [phone] Any additional info: pt rescheduled Allergies As of Date: 08/19/2021 Noted Allergy Reaction CODEINE 03/24/2005 KEFLEX (CEPHALEXIN) 03/25/2005 11 - Vomiting PENICILLINS 03/24/2005 Date Reviewed: 06/17/2021 Reviewed by: Amena Montaño - Fully Assessed Reason for Visit: No Show [1558] Prescriptions as of 08/19/2021 - MULTIVITAMIN ORAL Take by mouth. - fluticasone propionate (FLONASE NASAL) Use in the nose. - DESOGEN 0.15 MG-30 MCG TAB Take one(1) tablet daily. Problem List As Of Date: 08/19/2021 (None) Encounter Status:Closed by FRED RUTH on 08/19/21 [facility] BUCK [facility] ([id number]) 1980 F Date Time Provider Department 06/19/21 DOMINIC RUFF During your visit today, we recorded the following information about you: Hanny Grady 06/19/2021 8:59 AM Signed Left vm needs an appt with Dr. Ruff re: cystocele. She was referred by Shekhar Mcpherson. Alla Carpio PSS 06/19/2021 9:15 AM Signed Patient requested to be scheduled with Dr. Suarez and has an appointment on 07/16/21. Caroline Carpio PSS Allergies As of Date: 06/19/2021 Noted Allergy Reaction CODEINE 03/24/2005 KEFLEX (CEPHALEXIN) 03/25/2005 11 - Vomiting PENICILLINS 03/24/2005 Date Reviewed: 06/17/2021 Reviewed by: mAena Montaño - Fully Assessed Reason for Visit: Appointment [186] Prescriptions as of 06/19/2021 - MULTIVITAMIN ORAL Take by mouth. - fluticasone propionate (FLONASE NASAL) Use in the nose. - DESOGEN 0.15 MG-30 MCG TAB Take one(1) tablet daily. Problem List As Of Date: 06/19/2021 (None) Encounter Status:Closed by HANNY KWAN on 06/19/21 Normal [facility] UA DIP, URINE (POC)on 2021 BILIRUBIN UA (POCT) Negative Negative [facility] CLARITY UA (POCT) Clear [facility] COLOR UA (POCT) Yellow [facility] GLUCOSE UA (POCT) Negative Negative mg/dL [facility] HEMOGLOBIN/BLOOD UA (POCT) Small Abnormal Negative [facility] KETONE UA (POCT) Negative Negative mg/dL [facility] LEUKOCYTES UA (POCT) Small Abnormal Negative [facility] NITRITE UA (POCT) Negative Negative [facility] PH UA (POCT) 7.0 4.5 - 8.0 [facility] Protein Ql (U) Negative Negative mg/dL [facility] SPECIFIC GRAVITY UA (POCT) 1.010 1.005 - 1.030 [facility] UROBILINOGEN UA (POCT) 0.2 E.U./dL Normal E.U./dL [facility] CULTURE, URINE, ROUTINEon CULTURE, URINE, ROUTINE SEE NOTE Normal [facility] Comment on above: Result Comment: CULTURE, URINE, ROUTINE Micro Number: [id number] Test Status: Final Specimen Source: Urine Specimen Quality: Adequate Result: Less than 10,000 CFU/mL of single Gram positive organism isolated. No further testing will be performed. If clinically indicated, recollection using a method to minimize contamination, with prompt transfer to Urine Culture Transport Tube, is recommended. Performed By: #### 3 95 #### [facility] [address], [address] [place] [id number] Manager Copy: Miguel José MD Laboratory - Chemistry and C hemistry - challengeon 01-22-2021 Bilirubin Ql (U) Negative Normal [facility], [employer].; [facility], [employer]. Ketones Ql (U) Negative Normal [facility] [employer].; [facility], Inc[employer] pH (U) 7.0 [pH] Normal [facility], [employer].; [facility], Inc[employer] Specific gravity (U) [Rel density] 1.015 Normal [employer].; [facility], Inc[employer] Urobilinogen Qn (U) 0.2 mg/dL Normal [employer], [employer].; [facility], Inc[employer] Laboratory - Hematology and Cell countson 01-22-2021 Hemoglobin Ql (U) trace, hemolyzed Abnormal [facility] [employer].; [facility], [employer]. Laboratory - Specimen inform ationon 01-22-2021 Appearance (U) clear Normal [employer].; [facility], [employer]. Color (U) yellow Normal [employer].; [facility], Inc[employer] Laboratory - Urinalysison Glucose Test strip (U) [Mass/Vol] Negative Normal [facility].; [employer]. Leukocyte esterase Test strip Ql (U) moderate Abnormal [facility].; [employer]. Nitrite Ql (U) Negative Normal [facility], Inc.; [employer]. Protein Ql (U) Negative Normal [facility] [employer].; [employer]. No Panel Informationon 01-22 CULTURE, URINE, ROUTINE SEE NOTE Normal [place] [employer].; [employer]. Laboratory - Chemistry and C hemistry - challengeon 01-15-2021 Bilirubin [Mass/Vol] Negative Normal [facility] [employer] [facility].; [employer]. Glucose [Mass/Vol] NORM Normal [facility].; [employer]. pH (Bld) 7 [pH] Normal [facility] [employer] [facility].; [employer]. Protein [Mass/Vol] Negative Normal [place] [employer].; [employer]. Laboratory - Hematology and Cell countson 01-15-2021 WBC (Bld) [#/Vol] 100 10*3/uL Abnormal [place] [employer] [facility].; [employer]. Laboratory - Microbiology an d Antimicrobial susceptibilityon 01-15-2021 Bacteria identified Cx Nom (U) CULTURE URINE Normal [facility] [employer] [facility].; [employer]. Bacteria identified Cx Nom (Unsp spec) 1+ Normal [facility].; [employer]. Laboratory - Specimen inform ationon 01-15-2021 Clarity (U) clear Normal [place] [employer].; [employer]. Color (U) p.yel Normal [place] [employer].; [employer]. Specimen type Nom (Spec) Clean catch Normal [place] [employer].; [employer]. Laboratory - Urinalysison Crystals LM Nom (Urine sed) NONE Normal [place] [employer] [facility].; [employer]. Nitrite Ql (U) Negative Normal [facility] [employer].; [employer]. Urinalysis dipstick W Reflex Microscopic panel (U) URINALYSIS Normal [employer].; [employer]. Yeast LM Ql (Urine sed) NONE Normal [employer].; [employer]. No Panel Informationon 01-15 Amorphous NONE Normal [employer].; [employer]. Blood 25 Abnormal [employer].; [employer]. Casts NONE Normal [employer].; [employer]. Epi Cells FEW Normal [employer].; [employer]. Ketone Negative Normal [employer].; [employer]. Microscopic SEE BELOW Normal [employer].; [employer]. Mucous NONE Normal [employer].; [employer]. Rbc 0-5 Normal 0 - 3 [employer].; [employer]. Sp [place] 1.005 Abnormal [employer]; [employer]. Urobilinog NORM Normal [employer]; [employer]. Wbc 1-5 Normal 0 - 5 [employer].; [employer]. HepB Surface[employer],Quanton 08-20 HepB SurfaceAb,Quant 12.83 mIU/mL High <8.00 [facility] Comment on above: Performed By: #### A HBSQ, MEASLG, RUBIGG #### [facility] Routine Lab [address] [place] [address] #### MUMPSG #### See report for performing lab information. Measles IgG Antibodyon 08-20 Measles IgG Ab, Qual Abnormal Negative [facility] Comment on above: Result Comment: Posi tive Presence of detectable measles virus IgG antibodies. A positive result generally indicates exposure to measles virus or previous vaccination. Performed By: #### A HBSQ, MEASLG, RUBIGG #### [facility] Routine Lab [address] [address] #### MUMPSG #### See report for performing lab information. Measles IgG Antibody Normal [facility] Comment on above: Result Comment: 61.4 AU/mL Negative Specimens <13.5 Equivocal Specimens >=13.5 to <16.5 Positive Specimens >=16.5 The magnitude of the measured result, above the cutoff, is not indicative of the amount of antibody present. Value Negative Specimens <13.5 Equivocal Specimens >=13.5 to <16.5 Positive Specimens >=16.5 The magnitude of the measured result, above the cutoff, is not indicative of the amount of antibody present. interpreted as Negative Specimens <13.5 Equivocal Specimens >=13.5 to <16.5 Positive Specimens >=16.5 The magnitude of the measured result, above the cutoff, is not indicative of the amount of antibody present. follows: Negative Specimens <13.5 Equivocal Specimens >=13.5 to <16.5 Positive Specimens >=16.5 The magnitude of the measured result, above the cutoff, is not indicative of the amount of antibody present. Performed By: #### A HBSQ, MEASLG, RUBIGG #### [facility] Routine Lab [facility] [address] #### MUMPSG #### See report for performing lab information. Mumps IgG Abon 08-20-2020 Mumps IgG Ab <5.0 Normal [facility] Comment on above: Performed By: #### A HBSQ, MEASLG, RUBIGG #### [facility] Routine Lab [address] [place] [address] #### MUMPSG #### See report for performing lab information. Mumps IgG, Qual Negative Normal Negative [facility] Comment on above: Performed By: #### A HBSQ, MEASLG, RUBIGG #### [facility] Routine Lab [facility] [address] #### MUMPSG #### See report for performing lab information. Rubella IgG Antibodyon 08-20 Rubella IgG Ab 3.33 Index Value Normal [facility] Comment on above: Performed By: #### A HBSQ, MEASLG, RUBIGG #### [facility] Routine Lab [address] [place], [place] [address] #### MUMPSG #### See report for performing lab information. Rubella IgG Ab, Qual Positive Abnormal Negative [facility] Comment on above: Performed By: #### A HBSQ, MEASLG, RUBIGG #### [facility] Routine Lab [address] [place], [place] [address] #### MUMPSG #### See report for performing lab information. Laboratory - Chemistry and C hemistry - challengeon 12-11-2019 Albumin [Mass/Vol] 4.7 g/dL Normal 3.6 - 5.1 g/dL [facility], [facility].; [facility], [facility]. Albumin/Globulin [Mass ratio] 2.0 {ratio} Normal 1.0 - 2.5 [facility], [facility].; [facility]. ALP [Catalytic activity/Vol] 33 U/L Normal 31 - 125 U/L [facility].; [place] [employer] [facility], [facility]. ALT [Catalytic activity/Vol] 11 U/L Normal 6 - 29 U/L [facility].; [place] [employer] [facility], [employer]. AST [Catalytic activity/Vol] 14 U/L Normal 10 - 30 U/L [facility], [facility].; [employer] [facility], [facility]. Bilirubin [Mass/Vol] 0.3 mg/dL Normal 0.2 - 1.2 mg/dL [facility].; [place] [employer] [facility], [facility]. Calcium [Mass/Vol] 9.7 mg/dL Normal 8.6 - 10. 2 mg/dL [facility], [facility].; [employer], [facility]. Chloride [Moles/Vol] 103 mmol/L Normal 98 - 110 mmol/L [facility].; [employer] [facility], [facility]. Cholesterol [Mass/Vol] 232 mg/dL Abnormal [facility], [facility].; [employer], [facility]. Cholesterol in HDL [Mass/Vol] 71 mg/dL Normal [facility], [facility].; [place] [employer] [facility], [facility]. Cholesterol in LDL [Mass/Vol] 134 mg/dL Abnormal [facility].; [place] [employer] [facility] CO2 [Moles/Vol] 26 mmol/L Normal 20 - 32 mmol/L [facility] [facility].; [place] [employer] [facility], [facility]. Creatinine [Mass/Vol] 0.65 mg/dL Normal 0.50 - 1.10 mg/dL [facility].; [place] [employer] [facility], [facility]. GFR/1.73 sq M.predicted among blacks MDRD (S/P/Bld) [Vol rate/Area] 131 mL/min/{1.73_m2} Normal [facility].; [place] [employer] [facility], [facility] Glucose [Mass/Vol] 89 mg/dL Normal 65 - 99 mg/dL [facility].; [place] [employer] [facility], [facility]. Potassium [Moles/Vol] 4.4 mmol/L Normal 3.5 - 5.3 mmol/L [facility].; [place] [employer], [facility] Protein [Mass/Vol] 7.0 g/dL Normal 6.1 - 8.1 g/dL [facility].; [employer] Sodium [Moles/Vol] 136 mmol/L Normal 135 - 146 mmol/L [facility].; [place] [employer], [employer]. Triglyceride [Mass/Vol] 143 mg/dL Normal [facility].; [employer]. Urea nitrogen [Mass/Vol] 8 mg/dL Normal 7 - 25 mg/dL [facility].; [place] [employer], [facility] No Panel Informationon 12-10 BUN/CREATININE RATIO NOT APPLICABLE Normal 6 - [address].; [employer], [employer]. CHOL/HDLC RATIO 3.3 Normal [facility].; [place] [employer], [employer] eGFR NON-AFR. WELSH 113 Normal [facility].; [employer], [employer]. GLOBULIN 2.3 Normal 1.9 - 3.7 [facility], [facility].; [place] [employer] NON HDL CHOLESTEROL 161 Abnormal [facility].; [employer] Laboratory - Chemistry and C hemistry - challengeon 12-15-2018 Cholesterol [Mass/Vol] 205 mg/dL Abnormal 0 - 200.0 mg/dL [place] [employer].; [employer]. Cholesterol in HDL [Mass/Vol] 61 mg/dL Abnormal 30.0 - 40.0 mg/dL [place] [employer].; [employer], [employer]. Cholesterol in LDL [Mass/Vol] 116 mg/dL Normal 50.0 - 130.0 mg/dL [place] [employer].; [employer]. Cholesterol non HDL [Mass/Vol] 143 mg/dL Normal [employer].; [employer]. Cholesterol.total/C holesterol in HDL [Mass ratio] 1.9 {ratio} Normal 0 - 5.0 [place] [employer].; [employer]. Glucose Glucometer (BldC) [Moles/Vol] 72 Normal 60 - 120 [place] [employer].; [facility], [employer]. Triglyceride [Mass/Vol] 134 mg/dL Normal 40 - 150 mg/dL [employer].; [employer]. Laboratory - Cytologyon Microscopic observation Cyto stain Nom (Cvx) SEE NOTE Normal [employer].; [employer]. Laboratory - Chemistry and C hemistry - challengeon 12-22-2017 Cholesterol [Mass/Vol] 281 mg/dL Abnormal 0 - 200.0 mg/dL [place] [employer].; [facility], [employer]. Cholesterol in HDL [Mass/Vol] 74 mg/dL Abnormal 30.0 - 40.0 mg/dL [place] [employer].; [facility], [employer]. Cholesterol in LDL [Mass/Vol] 182 mg/dL Abnormal 50.0 - 130.0 mg/dL [employer].; [employer]. Cholesterol non HDL [Mass/Vol] 207 mg/dL Normal [employer].; [employer]. Cholesterol.total/C holesterol in HDL [Mass ratio] 2.5 {ratio} Normal 0 - 5.0 [place] [employer].; [employer]. Glucose Glucometer (BldC) [Moles/Vol] 81 Normal 60 - 120 [place] [employer].; [employer]. Testosterone [Mass/Vol] 28 ng/dL Normal 2 - 45 ng/dL [facility]; [employer] Triglyceride [Mass/Vol] 123 mg/dL Normal 40 - 150 mg/dL [facility].; [employer] Laboratory - Serology - non- microon 12-22-2017 Rheumatoid factor Qn [IU]/mL Normal [facility]; [place] [employer] Laboratory - Chemistry and C hemistry - challengeon 11-13-2016 Cholesterol [Mass/Vol] 209 mg/dL Abnormal 0 - 200.0 mg/dL [facility]; [place] [employer] Cholesterol in HDL [Mass/Vol] 69 mg/dL Abnormal 30.0 - 40.0 mg/dL [facility]; [employer]. Cholesterol in LDL [Mass/Vol] 109 mg/dL Normal 50.0 - 130.0 mg/dL [facility].; [employer]. Cholesterol non HDL [Mass/Vol] 140 mg/dL Normal [facility] [employer] [facility]; [employer]. Cholesterol.total/C holesterol in HDL [Mass ratio] 3 {ratio} Normal 0 - 5.[address] [facility]; [employer] Glucose Glucometer (BldC) [Moles/Vol] 74 Normal 60 - [address] [facility]; [employer] Triglyceride [Mass/Vol] 156 mg/dL Abnormal 40 - 150 mg/dL [facility].; [employer] No Panel Informationon 11-03 PANEL NAME THIN PREP (QU) PAP W ITH HPV REFLEX Normal [place] [employer] [facility]; [employer] Laboratory - Chemistry and C hemistry - challengeon 11-01-2015 Albumin [Mass/Vol] 4.4 g/dL Normal 3.4 - 4.8 g/dL [facility].; [employer] Albumin [Mass/Vol] 1.8 g/dL Abnormal 0.9 - 1.6 [facility].; [employer] ALP [Catalytic activity/Vol] 25 U/L Abnormal 38 - 126 U/L [facility].; [facility]. ALT [Catalytic activity/Vol] 9 U/L Normal 8 - 35 U/L [facility].; [facility]. Anion gap [Moles/Vol] 10 mmol/L Normal 10 - 20 mmol/L [facility].; [facility]. AST [Catalytic activity/Vol] 12 U/L Abnormal 13 - 39 U/L [facility].; [facility] Bilirubin [Mass/Vol] 0.5 mg/dL Normal 0.0 - 1.5 mg/dL [facility]; [facility] Calcium [Mass/Vol] 9.3 mg/dL Normal 8.6 - 10. 2 mg/dL [facility]; [facility]. Chloride [Moles/Vol] 103 mmol/L Normal 98 - 107 mmol/L [facility]; [facility], [facility] Cholesterol [Mass/Vol] 200 mg/dL Normal 0 - 200 mg/dL [facility]; [facility], [facility]. Cholesterol in HDL [Mass or moles/Vol] 53 mg/dL Normal 40 - 60 mg/dL [facility]; [facility]. Cholesterol in LDL [Mass/Vol] 103 mg/dL Normal 0 - 129 mg/dL [facility].; [facility], [facility]. Cholesterol.total/C holesterol in HDL [Mass ratio] 3.8 {ratio} Normal 0.0 - 5.0 [facility]; [facility] CO2 [Moles/Vol] 27.0 mmol/L Normal 21.0 - 31.0 mmol/L [facility].; [facility], [facility] Comprehensive metabolic 2000 panel CMP with eGFR Normal [facility]; [facility] Creatinine [Mass/Vol] 0.7 mg/dL Normal 0.6 - 1.2 mg/dL [facility].; [facility], [facility] GFR/1.73 sq M.predicted among blacks MDRD (S/P/Bld) [Vol rate/Area] mL/min/{1.73_m2} Normal 60 - 999 {ML/MINUTE} [facility].; [place] [employer] [facility] [employer] GFR/1.73 sq M.predicted MDRD (S/P/Bld) [Vol rate/Area] mL/min/{1.73_m2} Normal 60 - 999 {ML/MINUTE} [facility], [facility].; [place] [employer] [facility], [employer]. Globulin (S) [Mass/Vol] 2.5 g/dL Normal 1.5 - 3.8 g/dL [facility].; [place] [employer] [facility], [facility]. Glucose [Mass/Vol] 79 mg/dL Normal 74 - 106 mg/dL [facility].; [employer] [facility] CenterDigital Room, [employer]. Lipid 1996 panel LIPID PROFILE Normal [facility].; [place] [employer] [facility] CenterDigital [facility], [employer] Potassium [Moles/Vol] 3.5 mmol/L Normal 3.5 - 5.1 mmol/L [facility].; [place] [employer], [employer]. Protein [Mass/Vol] 6.9 g/dL Normal 6.4 - 8.3 g/dL [place] [employer] [facility].; [place] [employer]. Sodium [Moles/Vol] 136 mmol/L Normal 136 - 145 mmol/L [place] [employer] [facility].; [employer]. Triglyceride [Mass/Vol] 220 mg/dL Abnormal 0 - 150 mg/dL [place] [employer] [facility].; [employer]. Urea nitrogen [Mass/Vol] 6 mg/dL Normal 6 - 20 mg/dL [facility].; [employer]. Urea nitrogen/Creatinine [Mass ratio] 9 {ratio} Normal 0 - 30 {ratio} [place] [employer] [facility].; [employer]. No Panel Informationon 10-31 AGE 35 {years} Normal [place] [employer]; [employer]. Laboratory - Chemistry and C hemistry - challengeon 04-16-2015 Bilirubin Ql (U) Negative Normal [facility], [employer].; [employer], [employer]. Ketones Ql (U) Negative Normal [facility].; [employer], [employer]. pH (U) 7.0 [pH] Normal [employer].; [employer]. Specific gravity (U) [Rel density] 1.010 Normal [employer]; [employer] Urobilinogen Qn (U) 0.2 mg/dL Normal [facility] [employer] [facility] CenterDigital [facility], Inc.; [employer]. Laboratory - Hematology and Cell countson 04-16-2015 Hemoglobin Ql (U) moderate Abnormal [employer]; [employer]. Laboratory - Specimen inform ationon 04-16-2015 Appearance (U) cloudy Abnormal [facility] [employer]; [employer]. Color (U) orange Normal [employer]; [employer]. Laboratory - Urinalysison Glucose Test strip (U) [Mass/Vol] Negative Normal [employer]; [employer]. Leukocyte esterase Test strip Ql (U) small Abnormal [employer]; [employer]. Nitrite Ql (U) Positive Abnormal [facility] [employer].; [employer]. Protein Ql (U) Negative Normal [facility] [employer]; [employer]. Laboratory - Drug toxicology on 02-19-2014 Nicotine [Moles/Vol] NICOTINE AND METABOLITE SERUM Normal [employer]; [employer]. Laboratory - Chemistry and C hemistry - challengeon 02-16-2014 Cholesterol [Mass/Vol] 251 mg/dL Abnormal 0 - 200 mg/dL [place] [employer]; [employer]. Cholesterol in HDL [Mass or moles/Vol] 72 mg/dL Abnormal 40 - 60 mg/dL [employer].; [employer]. Cholesterol in LDL [Mass/Vol] 129 mg/dL Normal 0 - 129 mg/dL [employer].; [employer]. Cholesterol.total/C holesterol in HDL [Mass ratio] 3.5 {ratio} Normal 0.0 - 5.0 [employer]; [employer]. Glucose [Mass/Vol] 69 mg/dL Abnormal 74 - 106 mg/dL [employer]; [employer]. Lipid 1996 panel LIPID PROFILE Normal [facility].; [employer] Triglyceride [Mass/Vol] 248 mg/dL Abnormal 0 - 150 mg/dL [facility].; [employer] Laboratory - Microbiology an d Antimicrobial susceptibilityon 04-06-2013 VZV IgG IA Qn (S) 1.17 {INDEX} Normal [facility].; [employer]. Laboratory - Chemistry and C hemistry - challengeon 12-31-2012 Bilirubin Ql (U) Negative Normal [facility] [employer].; [employer] Ketones Ql (U) Negative Normal [facility].; [employer]. pH (U) 5.0 [pH] Normal [facility] [employer] [facility].; [employer] Specific gravity (U) [Rel density] <=1.005 Normal [place] [employer].; [employer]. Laboratory - Hematology and Cell countson 12-31-2012 Hemoglobin Ql (U) trace, non-hemolyzed Abnormal [place] [employer].; [employer]. Laboratory - Specimen inform ationon 12-31-2012 Appearance (U) Cloudy Abnormal [facility].; [employer]. Color (U) jak Abnormal [facility].; [employer]. Laboratory - Urinalysison Glucose Test strip (U) [Mass/Vol] 100 mg/dL Abnormal [place] [employer] [facility].; [employer]. Leukocyte esterase Test strip Ql (U) Negative Normal [place] [employer].; [employer]. Nitrite Ql (U) Positive Abnormal [facility].; [employer]. Protein Ql (U) Negative Normal [facility] [employer].; [employer]. No Panel Informationon 12-31 UA - UROBILINOGEN 1.0 mg/dL Normal [place] [employer].; [employer]. Laboratory - Cytologyon 10-09 Microscopic observation Cyto stain Nom (Cvx) SEE NOTE Normal [facility]; [employer] Laboratory - Cytologyon 10-10 Microscopic observation Cyto stain Nom (Cvx) SEE NOTE Normal [facility] [employer].; [employer] Laboratory - Chemistry and C hemistry - challengeon 11-26-2010 Bilirubin Ql (U) Negative Normal [facility].; [employer] Ketones Ql (U) Negative Normal [facility].; [employer] pH (U) 6.0 [pH] Normal 4.6 - 8.[address] [facility]; [employer] Specific gravity (U) [Rel density] 1.005 Normal 1.001 - 1.[address] [facility]; [employer] Laboratory - Hematology and Cell countson 11-26-2010 Hemoglobin Ql (U) Abnormal [facility] Hospital[facility] [employer] [facility]; [employer] Laboratory - Microbiology an d Antimicrobial susceptibilityon 11-26-2010 Ampicillin [Susc] <=2 Normal [facility]; [employer] Work Phone: Ampicillin+Sulbacta m [Susc] <=2 Normal [facility]; [employer]. Work Phone: Bacteria identified Cx Nom (Unsp spec) SEE NOTE Abnormal [facility].; [employer]. ceFAZolin [Susc] <=4 [address] [facility].; [employer]. Work Phone: Cefepime [Susc] <=1 Normal [facility].; [employer]. Work Phone: cefTAZidime [Susc] <=1 Normal [facility] [employer] [facility]; [employer]. Work Phone: cefTRIAXone [Susc] <=1 Normal [facility] [employer].; [employer]. Work Phone: Ciprofloxacin [Susc] >=4 Normal [facility]; [facility] Work Phone: Ertapenem [Susc] <=0.5 Normal [facility]; [facility] Work Phone: Gentamicin [Susc] <=1 Normal [facility]; [facility]. Work Phone: Imipenem [Susc] <=1 Normal [facility]; [facility]. Work Phone: levoFLOXacin [Susc] >=8 Normal [facility]; [facility] Work Phone: Nitrofurantoin [Susc] <=16 Normal [facility]; [place] [employer] [facility] CenterDigital [facility], [employer] Work Phone: Tobramycin [Susc] <=1 Normal [facility]; [facility] Work Phone: Trimethoprim+Sulfam ethoxazole [Susc] >=320 Normal [facility]; [facility] Work Phone: Laboratory - Specimen inform ationon 11-26-2010 Appearance (U) Cloudy Abnormal [facility]; [place] [employer] Color (U) Dark Yellow Normal [facility]; [facility] Specimen source Nom (Unsp spec) URINE-CC Normal [facility]; [place] [employer] [facility] Laboratory - Urinalysison Glucose Test strip (U) [Mass/Vol] 1000 mg/dl Abnormal [facility]; [place] [employer] [facility] Leukocyte esterase Test strip Ql (U) small Abnormal [facility]; [place] [employer] Nitrite Ql (U) Positive Abnormal [facility]; [place] [employer] Protein Ql (U) 100 mg/dL Abnormal [facility]; [employer] No Panel Informationon 11-26 CEFOXITIN <=4 Normal [place] [employer]; [employer] Work Phone: UA - UROBILINOGEN 1.0 mg/dL Normal [place] [employer].; [employer]. Laboratory - Cytologyon Microscopic observation Cyto stain Nom (Cvx) SEE NOTE Normal [facility] [employer].; [employer]. Laboratory - Chemistry and C hemistry - challengeon 11-07-2010 Cholesterol [Mass/Vol] 237 mg/dL Abnormal 125 - 200 mg/dL [facility]; [employer] Cholesterol in HDL [Mass/Vol] 47 mg/dL Normal [facility]; [employer] Cholesterol in LDL [Mass/Vol] 142 mg/dL Abnormal [place] [employer] [facility]; [employer]. Cholesterol.total/C holesterol in HDL [Mass ratio] 5.0 {ratio} Normal [facility] [employer]; [employer]. Glucose [Mass/Vol] 83 mg/dL Normal 65 - 99 mg/dL [facility]; [employer]. Triglyceride [Mass/Vol] 240 mg/dL Abnormal [place] [employer] [facility]; [employer]. TSH Qn 1.20 m[IU]/L Normal 0.40 - 4.50 {mIU/L} [place] [employer] [facility]Digital [facility] [employer].; [employer]. Laboratory - Cytologyon 07-09 Microscopic observation Cyto stain Nom (Cvx) SEE NOTE Abnormal [place] [employer].; [employer]. Laboratory - Urinalysison Glucose Test strip (U) [Mass/Vol] Negative Normal [employer]; [employer] Protein Ql (U) Negative Normal [facility].; [employer]. Laboratory - Hematology and Cell countson 06-02-2010 Hemoglobin (Bld) [Mass/Vol] 12.2 g/dL Normal 11.5 - 14.2 g/dL [place] [employer]; [facility] Laboratory - Urinalysison Glucose Test strip (U) [Mass/Vol] Negative Normal [place] [employer].; [employer]. Protein Ql (U) Negative Normal [facility] [employer]. Laboratory - Urinalysison Glucose Test strip (U) [Mass/Vol] Negative Normal [employer].; [employer]. Protein Ql (U) Negative Normal [facility] [employer].; [employer]. Laboratory - Urinalysison Glucose Test strip (U) [Mass/Vol] Negative Normal [employer].; [employer]. Protein Ql (U) Negative Normal [facility] [employer].; [employer]. Laboratory - Urinalysison Glucose Test strip (U) [Mass/Vol] Negative Normal [employer].; [employer]. Protein Ql (U) Negative Normal [facility] [employer].; [employer]. Laboratory - Hematology and Cell countson 03-24-2010 Hemoglobin (Bld) [Mass/Vol] 12.8 g/dL Normal 11.5 - 14.2 g/dL [place] [employer].; [employer]. Laboratory - Urinalysison Glucose Test strip (U) [Mass/Vol] Negative Normal [employer]. Protein Ql (U) Negative Normal [facility] [employer].; [employer]. Laboratory - Chemistry and C hemistry - challengeon 02-20-2010 Glucose 1 Hr post 50 g glucose PO [Mass/Vol] 76 mg/dL Normal [employer].; [employer]. Laboratory - Hematology and Cell countson 02-20-2010 Hemoglobin (Bld) [Mass/Vol] 11.3 g/dL Abnormal 11.7 - 15.5 g/dL [place] [employer].; [employer]. Laboratory - Urinalysison Glucose Test strip (U) [Mass/Vol] Negative Normal [facility].; [place] [employer]. Protein Ql (U) Negative Normal [facility].; [place] [employer]. Laboratory - Urinalysison Glucose Test strip (U) [Mass/Vol] Negative Normal [facility].; [place] [employer], [employer] Protein Ql (U) Negative Normal [facility].; [place] [employer], [employer] Laboratory - Urinalysison Glucose Test strip (U) [Mass/Vol] Negative Normal [facility].; [place] [employer], [employer] Protein Ql (U) Negative Normal [facility].; [place] [employer]. Laboratory - Blood bankon ABO group Nom (Bld) A Normal [facility].; [place] [employer] [facility]. Blood group antibody screen Ql Negative Normal [facility].; [place] [employer]. Rh Nom (Bld) Negative Normal [facility].; [employer]. Laboratory - Hematology and Cell countson 11-12-2009 Band form neutrophils/100 WBC (Bld) 6.0 % Normal 2.0 - 7.[address] [facility]; [place] [employer], [employer]. Basophils/100 WBC (Bld) 0.3 % Normal 0 - [address].; [place] [employer]. Eosinophils/100 WBC (Bld) 1.5 % Normal 0 - [address] [facility].; [place] [employer] Erythrocyte distribution width (RBC) [Ratio] 12.9 % Normal 12.0 - 15.6 % [place] [employer] [facility].; [employer] Hematocrit (Bld) [Volume fraction] 35.8 % Abnormal 36 - 44 % [facility] [facility].; [employer], [employer] Hemoglobin (Bld) [Mass/Vol] 12.4 g/dL Normal 11.5 - 14.2 g/dL [facility].; [employer]. Lymphocytes/100 WBC (Bld) - Abnormal [facility]; [place] [employer] MCH (RBC) [Entitic mass] 31.3 pg Normal 27 - 33 pg [facility]; [facility] MCHC (RBC) [Mass/Vol] 34.6 g/dL Normal 32 - 36 g/dL [facility]; [facility]. MCV (RBC) [Entitic vol] 90.2 fL Normal 80 - 99 fL [facility]; [facility] Monocytes/100 WBC (Bld) - Normal [facility]; [facility] Neutrophils (Bld) [#/Vol] - Normal [facility]; [facility] Platelets (Bld) [#/Vol] 351 10*9{Cells}/L Normal 150 - 450 10*9{Cells} /L [facility]; [facility] RBC (Bld) [#/Vol] 3.97 10*6/uL Abnormal 4.10 - 5.3 0 10*6/uL [facility]; [facility] WBC (Bld) [#/Vol] 9.5 10*9{Cells}/L Normal 4.5 - 10.8 10*9{Cells} /L [facility]; [facility] Laboratory - Microbiology an d Antimicrobial susceptibilityon 11-12-2009 HBV surface Ag IA Ql Negative Normal [facility]; [facility] Reagin Ab RPR Ql (S) Non-Reactive Normal [facility]; [facility] Rubella virus Ab (S) [Titer] Negative Normal [facility]; [facility] Vital Signs Date Time Vital Sign Value Performing Clinician Facility 08-31-2024 07:20-0400 Body height 160.02 cm [facility]; [facility] 08-31-2024 07:20-0400 Body mass index (BMI) [Ratio] 22.5 kg/m2 [facility]; [facility] 08-31-2024 07:20-0400 Body surface area Derived from formula 1.59 m2 Litzy Gomez CLINICAL DATA MANAGEMENT DIRECTOR [facility] 08-31-2024 07:20-0400 Body weight 57.61 kg Litzy Gomez [facility], [facility].; [place] [employer] [facility], [facility] 08-31-2024 07:20-0400 Diastolic blood pressure 72 mm[Hg] Litzy Gomez [facility], [facility].; [employer] Comment on above: Patient Position: Sitting; Cuff Location : Left Arm; Cuff Size: Standard 08-31-2024 07:20-0400 Heart rate 89 /min [facility] [employer] [facility], Inc[facility] Comment on above: Pattern: Regular 08-31-2024 07:20-0400 Systolic blood pressure 105 mm[Hg] Litzy Gomez [facility], [facility].; [employer] Comment on above: Patient Position: Sitting; Cuff Location : Left Arm; Cuff Size: Standard 12-01-2023 08:15-0400 Body height 160.02 cm Clary Hernandez [facility], [facility].; [place] [employer] [facility], Inc[facility] 12-01-2023 08:15-0400 Body mass index (BMI) [Ratio] 22.32 kg/m2 Clary M David [facility], [facility].; [employer] [facility], Inc. 12-01-2023 08:15-0400 Body surface area Derived from formula 1.59 m2 Clary Hernandez [facility], [facility].; [place] [employer] [facility], Inc[facility] 12-01-2023 08:15-0400 Body weight 57.15 kg Clary David [facility], [facility].; [employer] 12-01-2023 08:15-0400 Diastolic blood pressure 76 mm[Hg] Clary Hernandez [facility], [facility].; [employer] Comment on above: Patient Position: Sitting; Cuff Location : Left Arm; Cuff Size: Standard 12-01-2023 08:15-0400 Heart rate 72 /min Clary Hernandez [facility], [facility] Comment on above: Pattern: Regular 12-01-2023 08:15-0400 Systolic blood pressure 109 mm[Hg] Clary Pryor David [facility].; [facility] Comment on above: Patient Position: Sitting; Cuff Location : Left Arm; Cuff Size: Standard 11-26-2022 14:27-0400 Body height 160.02 cm [facility] 11-26-2022 14:27-0400 Body mass index (BMI) [Ratio] 24.34 kg/m2 [facility].; [facility]. 11-26-2022 14:27-0400 Body surface area Derived from formula 1.65 m2 [facility].; [facility] 11-26-2022 14:27-0400 Body temperature 98.7 [degF] [facility] [place] [employer]. Comment on above: Method: Tympanic 11-26-2022 14:27-0400 Body weight 62.32 kg [facility].; [facility] 11-26-2022 14:27-0400 Diastolic blood pressure 65 mm[Hg] [facility] [place] [employer] [facility] Inc[facility] Comment on above: Patient Position: Sitting; Cuff Location : Left Arm; Cuff Size: Standard 11-26-2022 14:27-0400 Heart rate 69 /min [facility].; [place] [employer] [facility] Inc[employer] Comment on above: Pattern: Regular 11-26-2022 14:27-0400 Inhaled oxygen concentration 21 % [facility] [place] [employer] [facility] Inc[employer] Comment on above: Room air 11-26-2022 14:27-0400 SaO2% (BldA) [Mass fraction] 98 % [facility].; [place] [employer] [facility] Inc[facility] 11-26-2022 14:27-0400 Systolic blood pressure 99 mm[Hg] Violet Juan José QUICK [facility].; [facility]. Comment on above: Patient Position: Sitting; Cuff Location : Left Arm; Cuff Size: Standard 10-14-2022 06:58-0400 Body temperature 98.6 [degF] ROSALVA PETIT MD [facility] 10-14-2022 06:58-0400 Diastolic Blood Pressure Non-Invasive 59 1 ROSALVA PETIT MD [facility] 10-14-2022 06:58-0400 Heart rate 71 /min ROSALVA PETIT MD [address] [place] [address] 10-14-2022 06:58-0400 Reason For Taking VItal Signs ROSALVA PETIT MD [facility] 10-14-2022 06:58-0400 Respiratory rate 16 /min ROSALVA PETIT MD [facility] 10-14-2022 06:58-0400 Systolic Blood Pressure Non-Invasive 90 1 ROSALVA PETIT MD [facility] 10-14-2022 03:07-0400 Body temperature 98.24 [degF] ROSALVA PETIT MD [facility] 10-14-2022 03:07-0400 Diastolic Blood Pressure Non-Invasive 60 1 ROSALVA PETIT MD [facility] 10-14-2022 03:07-0400 Heart rate 56 /min ROSALVA PETIT MD [facility] 10-14-2022 03:07-0400 Reason For Taking VItal Signs ROSALVA PETIT MD [facility] 10-14-2022 03:07-0400 Respiratory rate 16 /min ROSALVA PETIT MD [facility] 10-14-2022 03:07-0400 Systolic Blood Pressure Non-Invasive 94 1 ROSALVA PETIT MD [facility] 10-13-2022 22:47-0400 Body temperature 98.06 [degF] ROSALVA PETIT MD [facility] 10-13-2022 22:47-0400 Diastolic Blood Pressure Non-Invasive 63 1 ROSALVA PETIT MD [facility] 10-13-2022 22:47-0400 Heart rate 61 /min ROSALVA PETIT MD [facility] 10-13-2022 22:47-0400 Reason For Taking VItal Signs ROSALVA PETIT MD [facility] 10-13-2022 22:47-0400 Respiratory rate 16 /min ROSALVA PETIT MD [facility] 10-13-2022 22:47-0400 Systolic Blood Pressure Non-Invasive 90 1 ROSALVA PETIT MD [facility] 10-13-2022 12:40-0400 Body height 160 cm ROSALVA PETIT MD [facility] 10-13-2022 12:40-0400 Body weight 63 kg ROSALVA PETIT MD [facility] 10-13-2022 12:40-0400 Body weight 24.61 kg/m2 ROSALVA PETIT MD [facility] 10-13-2022 12:05-0400 Heart rate 65 /min ROSALVA PETIT MD [facility] 10-13-2022 12:05-0400 Mean blood pressure 92 mm[Hg] ROSALVA PETIT MD [facility] 10-13-2022 11:50-0400 Heart rate 72 /min ROSALVA PETIT MD [facility] 10-13-2022 11:50-0400 Mean blood pressure 94 mm[Hg] ROSALVA PETIT MD [facility] 10-13-2022 11:35-0400 Heart rate 62 /min ROSALVA PETIT MD [facility] 10-13-2022 11:35-0400 Mean blood pressure 96 mm[Hg] ROSALVA PETIT MD [facility] 10-13-2022 10:35-0400 Body temperature 98.24 [degF] ROSALVA PETIT MD [facility] 10-13-2022 10:35-0400 Respiratory Rate - Anes 0 br/min ROSALVA PETIT MD [facility] 10-13-2022 10:30-0400 Respiratory Rate - Anes 0 br/min ROSALVA PETIT MD [facility] 10-13-2022 10:25-0400 Respiratory Rate - Anes 9 br/min ROSALVA PETIT MD [facility] 10-13-2022 10:20-0400 Body temperature 96.84 [degF] ROSALVA PETIT MD [facility] 10-13-2022 10:15-0400 Body temperature 96.76 [degF] ROSALVA PETIT MD [facility] 10-13-2022 10:10-0400 Body temperature 96.75 [degF] ROSALVA PETIT MD [facility] 10-13-2022 06:56-0400 Body height 160 cm ROSALVA PETIT MD [facility] 10-13-2022 06:56-0400 Body temperature 97.88 [degF] ROSALVA PETIT MD [facility] 10-13-2022 06:56-0400 Body weight 63 kg ROSALVA PETIT MD [facility] 10-13-2022 06:56-0400 Heart rate 68 /min ROSALVA PETIT MD [facility] 04-06-2023 15:38-0400 Diastolic Blood Pressure Non-Invasive 68 [address] [facility] 05-14-2022 15:38-0400 Heart rate 75 /min ALEXANDER SHEROCK DO [facility] 05-14-2022 15:38-0400 Respiratory rate 18 /min ALEXANDER SHEROCK DO [facility] 05-14-2022 15:38-0400 Systolic Blood Pressure Non-Invasive 110 [address] [facility] 05-14-2022 14:24-0400 Diastolic Blood Pressure Non-Invasive 70 [address] [facility] 05-14-2022 14:24-0400 Heart rate 86 /min ALEXANDER REYESOCK DO [facility] 05-14-2022 14:24-0400 Systolic Blood Pressure Non-Invasive 104 [address] [facility] 05-14-2022 13:45-0400 Diastolic Blood Pressure Non-Invasive 64 [address] [facility] 05-14-2022 13:45-0400 Heart rate 82 /min ALEXANDER SHEROCK DO [facility] 05-14-2022 13:45-0400 Systolic Blood Pressure Non-Invasive 105 [address] [facility] 05-14-2022 13:16-0400 Respiratory rate 14 /min ALEXANDER SHEROCK DO [facility] 05-14-2022 12:45-0400 Respiratory rate 16 /min ALEXANDER SHEROCK DO [facility] 05-14-2022 11:55-0400 Body temperature 98.96 [degF] ALEXANDER SHEROCK DO [facility] 05-14-2022 11:50-0400 Respiratory Rate - Anes 9 br/min ALEXANDER SHEROCK DO [facility] 05-14-2022 11:45-0400 Body temperature 97.7 [degF] ALEXANDER ERICOCK DO [facility] 05-14-2022 11:45-0400 Respiratory Rate - Anes 8 br/min ALEXANDER SHEROCK DO [facility] 05-14-2022 11:40-0400 Respiratory Rate - Anes 8 br/min ALEXANDER REILLY DO [facility] 05-14-2022 11:30-0400 Body temperature 97.7 [degF] ALEXANDER ERICOCK DO [facility] 05-14-2022 11:15-0400 Body temperature 97.7 [degF] ALEXANDER SHEROCK DO [facility] 05-14-2022 07:11-0400 Blood Pressure Cuff Size ALEXANDER REILLY DO [facility] 05-14-2022 07:11-0400 Blood Pressure Location ALEXANDER REILLY DO [facility] 05-14-2022 07:11-0400 Blood Pressure Method ALEXANDER REILLY D O [facility] 05-14-2022 07:11-0400 Body height 160 cm ALEXANDER REILLY DO [facility] 05-14-2022 07:11-0400 Body temperature 99.32 [degF] ALEXANDER REILLY DO [facility] 05-14-2022 07:11-0400 Body weight 63 kg ALEXANDER REYESOCK DO [facility] 05-14-2022 07:11-0400 Heart rate 75 /min ALEXANDER REILLY DO [facility] 04-30-2022 08:15-0400 Blood Pressure Location ALEXANDER REILLY DO [facility] 04-30-2022 08:15-0400 Body height 160 cm ALEXANDER REILLY DO [facility] 04-30-2022 08:15-0400 Body weight 63.6 kg ALEXANDER REILLY DO [facility] 04-30-2022 08:15-0400 Body weight 24.84 kg/m2 ALEXANDER REILLY DO [facility] 04-30-2022 08:15-0400 Diastolic Blood Pressure Non-Invasive 64 [address] [facility] 04-30-2022 08:15-0400 Heart rate 70 /min ALEXANDER REILLY DO [facility] 04-30-2022 08:15-0400 Respiratory rate 20 /min ALEXANDER REYESOCK DO [facility] 04-30-2022 08:15-0400 Systolic Blood Pressure Non-Invasive 100 [address] [facility] 11-27-2021 14:32-0400 Body height 160.02 cm Jailene Daley MA [facility], [facility].; [facility] 11-27-2021 14:32-0400 Body mass index (BMI) [Ratio] 24.98 kg/m2 Jailene Daley MA [facility], [facility].; [facility]. 11-27-2021 14:32-0400 Body surface area Derived from formula 1.67 m2 Jailene Daley MA [facility].; [facility] 11-27-2021 14:32-0400 Body weight 63.96 kg Jailene Daley MA [facility].; [facility] 11-27-2021 14:32-0400 Diastolic blood pressure 70 mm[Hg] Jailene Daley MA [facility].; [facility]. Comment on above: Patient Position: Sitting; Cuff Location : Left Arm; Cuff Size: Standard 11-27-2021 14:32-0400 Heart rate 83 /min Jailene Daley MA [facility].; [place] [employer] [facility]. Comment on above: Pattern: Regular 11-27-2021 14:32-0400 Systolic blood pressure 103 mm[Hg] Jailene Daley MA [facility].; [facility]. Comment on above: Patient Position: Sitting; Cuff Location : Left Arm; Cuff Size: Standard 09-12-2021 07:24-0400 Body height 160 cm Mary Vazquez APRN.SHEEP HERDER Work Phone: [facility] 09-12-2021 07:24-0400 Body weight 65.77 kg Mary Vazquez ORGANIZATIONAL CONSULTANT.SHEEP HERDER Work Phone: [facility] 08-20-2021 09:18-0400 Body height 160 cm Cielo Suarez MD Work Phone: [facility] 08-20-2021 09:18-0400 Body weight 65.77 kg Cielo Suarez MD Work Phone: [facility] 06-17-2021 15:41-0400 Body height 160 cm Handy Mcpherson PA-C Work Phone: [facility] 06-17-2021 15:41-0400 Body weight 68.04 kg Handy Mcpherson PA-C Work Phone: [facility] 06-17-2021 15:41-0400 Diastolic blood pressure 68 mm[Hg] Handy Mcpherson PA-C Work Phone: [facility] 06-17-2021 15:41-0400 Heart rate 86 /min Handy Mcpherson PA-C Work Phone: [facility] 06-17-2021 15:41-0400 Systolic blood pressure 102 mm[Hg] Handy Mcpherson PA-C Work Phone: [facility] 05-30-2021 10:23-0400 Body height 160.7 cm Yvette Pearson MD Work Phone: [facility] 05-30-2021 10:23-0400 Body weight 66.41 kg Yvette Pearson MD Work Phone: [facility] 05-30-2021 10:23-0400 Diastolic blood pressure 70 mm[Hg] Yvette Pearson MD Work Phone: [facility] 05-30-2021 10:23-0400 Systolic blood pressure 110 mm[Hg] Yvette Pearson MD Work Phone: [facility] 01-22-2021 10:48-0500 Body height 160.02 cm Clary Hernandez LPN [facility], [facility].; [facility], [facility]. 01-22-2021 10:48-0500 Body mass index (BMI) [Ratio] 24.98 kg/m2 Clary Hernandez LPN [facility], [facility].; [facility], [facility]. 01-22-2021 10:48-0500 Body surface area Derived from formula 1.67 m2 Clary Hernandez LPN [facility], [facility].; [facility], [facility]. 01-22-2021 10:48-0500 Body temperature 99.3 [degF] Clary Hernandez LPN [facility], [facility].; [facility]. Comment on above: Method: Tympanic 01-22-2021 10:48-0500 Body weight 63.96 kg Clary Gunterlabach CLINICAL DATA MANAGEMENT DIRECTOR [facility], [facility].; [employer] [facility]. 01-22-2021 10:48-0500 Diastolic blood pressure 77 mm[Hg] Clary Gunterlabach CLINICAL DATA MANAGEMENT DIRECTOR [facility] [employer] Comment on above: Patient Position: Sitting; Cuff Location : Right Arm; Cuff Size: Standard 01-22-2021 10:48-0500 Heart rate 73 /min Clary Pryor David CLINICAL DATA MANAGEMENT DIRECTOR [facility] [employer]. Comment on above: Pattern: Regular 01-22-2021 10:48-0500 Systolic blood pressure 111 mm[Hg] Clary Pryor David CLINICAL DATA MANAGEMENT DIRECTOR [facility] [employer], [employer]. Comment on above: Patient Position: Sitting; Cuff Location : Right Arm; Cuff Size: Standard 12-05-2020 08:110400 Body height 160.02 cm Clary Pryor David [facility], [facility].; [employer] 12-05-2020 08:110400 Body mass index (BMI) [Ratio] 25.33 kg/m2 Clary Pryor David [facility], [facility].; [employer] 12-05-2020 08:110400 Body surface area Derived from formula 1.68 m2 Clary M David CLINICAL DATA MANAGEMENT DIRECTOR [place] [employer] [facility], Inc.; [employer]. 12-05-2020 08:110400 Body weight 64.86 kg Clary Pryor David CLINICAL DATA MANAGEMENT DIRECTOR [place] [employer] [facility].; [employer]. 12-05-2020 08:110400 Diastolic blood pressure 72 mm[Hg] Clary Ganach [facility] [employer] [facility], Inc.; [employer], [employer]. Comment on above: Patient Position: Sitting; Cuff Location : Left Arm; Cuff Size: Standard 12-05-2020 08:110400 Heart rate 76 /min Clary Pryor David CLINICAL DATA MANAGEMENT DIRECTOR [place] [employer] [facility], Inc.; [employer]. Comment on above: Pattern: Regular 12-05-2020 08:11-0400 Systolic blood pressure 105 mm[Hg] Clary Hernandez LPN [employer].; [employer]. Comment on above: Patient Position: Sitting; Cuff Location : Left Arm; Cuff Size: Standard 12-18-2019 14:18-0500 Body height 160.02 cm Ashley J Chin PA-C Work Phone: [employer].; [employer]. 12-18-2019 14:18-0500 Body mass index (BMI) [Ratio] 25.33 kg/m2 Ashley J Chin PA-C Work Phone: [employer]; [employer]. 12-18-2019 14:18-0500 Body surface area Derived from formula 1.68 m2 Ashley J Chin PA-C Work Phone: [employer]; [employer]. 12-18-2019 14:18-0500 Body weight 64.86 kg Ashley J Chin PA-C Work Phone: [employer]; [employer]. 12-18-2019 14:18-0500 Diastolic blood pressure 69 mm[Hg] Ashley J Chin PA-C Work Phone: [employer].; [employer]. Comment on above: Patient Position: Sitting; Cuff Location : Left Arm; Cuff Size: Standard 12-18-2019 14:18-0500 Heart rate 70 /min Ashley J Chin PA-C Work Phone: [employer].; [employer]. Comment on above: Pattern: Regular 12-18-2019 14:18-0500 Systolic blood pressure 106 mm[Hg] Ashley J Chin PA-C Work Phone: [employer].; [employer]. Comment on above: Patient Position: Sitting; Cuff Location : Left Arm; Cuff Size: Standard 12-15-2018 09:54-0500 Body height 161.29 cm Orin Turciosarely QUICK [employer] [facility] 12-15-2018 09:54-0500 Body mass index (BMI) [Ratio] 23.19 kg/m2 Orin Odellchin QUICK [employer] [facility] 12-15-2018 09:54-0500 Body surface area Derived from formula 1.64 m2 Orin Odellchin QUICK [employer] [facility] 12-15-2018 09:54-0500 Body weight 60.33 kg Orin Odellchin [facility].; [facility], [employer] 12-15-2018 09:54-0500 Diastolic blood pressure 68 mm[Hg] Orin Odellchin [facility] Services[facility], Inc.; [facility] Comment on above: Patient Position: Sitting; Cuff Location : Left Arm; Cuff Size: Standard 12-15-2018 09:54-0500 Heart rate 73 /min Orin Odellchin QUICK [employer] [facility] Comment on above: Pattern: Regular 12-15-2018 09:54-0500 Systolic blood pressure 99 mm[Hg] Orin Turciosarely CLINICAL DATA MANAGEMENT DIRECTOR [employer] [facility] Comment on above: Patient Position: Sitting; Cuff Location : Left Arm; Cuff Size: Standard 08-02-2018 15:43-0400 Body height 161.29 cm Ashley Chin PA-C Work Phone: [employer].; [employer] 08-02-2018 15:43-0400 Body mass index (BMI) [Ratio] 23.36 kg/m2 Ashley Chin PA-C Work Phone: [employer].; [employer] 08-02-2018 15:43-0400 Body surface area Derived from formula 1.64 m2 AshleyPhotoTLC PA-C Work Phone: [employer].; [employer]. 08-02-2018 15:43-0400 Body weight 60.78 kg Ashley Lopezer PA-C Work Phone: [employer].; [employer]. 08-02-2018 15:43-0400 Diastolic blood pressure 75 mm[Hg] Ashley Lopezer PA-C Work Phone: [employer].; [employer]. Comment on above: Patient Position: Sitting; Cuff Location : Left Arm; Cuff Size: Standard 08-02-2018 15:43-0400 Heart rate 91 /min Ashley Lopezer PA-C Work Phone: [employer].; [employer]. Comment on above: Pattern: Regular 08-02-2018 15:43-0400 Systolic blood pressure 106 mm[Hg] Ashley Chin PA-C Work Phone: [employer].; [employer]. Comment on above: Patient Position: Sitting; Cuff Location : Left Arm; Cuff Size: Standard 12-22-2017 10:45-0500 Body height 161.29 cm Orin Andrade LPN [employer]. 12-22-2017 10:45-0500 Body mass index (BMI) [Ratio] 22.53 kg/m2 Orin Andrade LPN [employer]. 12-22-2017 10:45-0500 Body surface area Derived from formula 1.62 m2 Orin Andrade LPN [employer]. 12-22-2017 10:45-0500 Body weight 58.6 kg Orin Andrade LPRehoboth Mckinley Christian Health Care ServicesMarginize.; [employer]. 12-22-2017 10:45-0500 Diastolic blood pressure 72 mm[Hg] Orin Andrade LPN [employer]. Comment on above: Patient Position: Sitting; Cuff Location : Left Arm; Cuff Size: Standard 12-22-2017 10:45-0500 Heart rate 71 /min Orin Wengjaxandrzej ABDELRAHMAN [place] [employer] [facility], Inc.; [facility], [employer]. Comment on above: Pattern: Regular 12-22-2017 10:45-0500 Systolic blood pressure 103 mm[Hg] Orin Andrade CLINICAL DATA MANAGEMENT DIRECTOR [place] [employer] [facility], Inc.; [facility], Inc. Comment on above: Patient Position: Sitting; Cuff Location : Left Arm; Cuff Size: Standard 11-13-2016 09:58-0400 Body height 160.02 cm Orin Odellchin QUICK [place] [employer] [facility], Inc.; [facility], [employer] 11-13-2016 09:58-0400 Body mass index (BMI) [Ratio] 23.56 kg/m2 Orin Odellchin [facility] [employer] [facility], Inc.; [facility], Inc[employer] 11-13-2016 09:58-0400 Body surface area Derived from formula 1.[address] [facility] [employer], [employer].; [employer] 11-13-2016 09:58-0400 Body weight 60.33 kg Orin Odellchin QUICK [employer], [employer].; [facility], Inc[facility] 11-13-2016 09:58-0400 Diastolic blood pressure 71 mm[Hg] Orin Odellnicoleandrzej CLINICAL DATA MANAGEMENT DIRECTOR [place] [employer], [employer].; [facility], [employer]. Comment on above: Patient Position: Sitting; Cuff Location : Left Arm; Cuff Size: Standard 11-13-2016 09:58-0400 Heart rate 73 /min Orin Odellchin QUICK [employer]. Comment on above: Pattern: Regular 11-13-2016 09:58-0400 Systolic blood pressure 104 mm[Hg] Orin Turciosarely ROSENBERGN [employer], [employer].; [facility], [employer]. Comment on above: Patient Position: Sitting; Cuff Location : Left Arm; Cuff Size: Standard 06-11-2016 14:58-0400 Body height 160.02 cm Orin Odellchin QUICK [employer] 06-11-2016 14:58-0400 Body mass index (BMI) [Ratio] 22.5 kg/m2 Orin Andrade ABDELRAHMAN [facility], Inc.; [employer], [employer]. 06-11-2016 14:58-0400 Body surface area Derived from formula 1.59 m2 Orin Turciosjaxandrzej ABDELRAHMAN [facility], Inc.; [facility], [employer] 06-11-2016 14:58-0400 Body temperature 99.3 [degF] Orin Andrade [facility], Inc.; [facility], Inc. Comment on above: Method: Tympanic 06-11-2016 14:58-0400 Body weight 57.61 kg Orin Turciosarely [facility], Inc.; [employer], [employer]. 06-11-2016 14:58-0400 Diastolic blood pressure 67 mm[Hg] Orin Odellnicoleandrzej CLINICAL DATA MANAGEMENT [facility]OR[facility] [employer] [facility], Inc.; [facility], [employer]. Comment on above: Patient Position: Sitting; Cuff Location : Left Arm; Cuff Size: Standard 06-11-2016 14:58-0400 Heart rate 79 /min Orin Odellchin CLINICAL DATA MANAGEMENT DIRECTOR [place] [employer] [facility], Inc.; [employer]. Comment on above: Pattern: Regular 06-11-2016 14:58-0400 Inhaled oxygen concentration 21 % Orin Turciosarely [facility] [employer] [facility], [facility].; [facility], Inc. Comment on above: Room air 06-11-2016 14:58-0400 SaO2% (BldA) [Mass fraction] 99 % Orin Wechin [facility] [employer] [facility], Inc.; [employer], [employer]. 06-11-2016 14:58-0400 Systolic blood pressure 101 mm[Hg] Orin Riveraandrzej [facility] [employer] [facility], Inc.; [employer]. Comment on above: Patient Position: Sitting; Cuff Location : Left Arm; Cuff Size: Standard 11-04-2015 10:57-0400 Body height 160.02 cm Orin Wechin QUICK [place] [employer] [facility], Inc.; [employer]. 11-04-2015 10:57-0400 Body mass index (BMI) [Ratio] 22.5 kg/m2 Orin Andrade [facility], Inc.; [employer] 11-04-2015 10:57-0400 Body surface area Derived from formula 1.59 m2 Orin Riveraandrzej [facility], Inc.; [employer] 11-04-2015 10:57-0400 Body weight 57.61 kg Orin Riveraandrzej [facility], Inc.; [employer] 11-04-2015 10:57-0400 Diastolic blood pressure 74 mm[Hg] Orin Andrade [facility], Inc.; [facility], [employer]. Comment on above: Patient Position: Sitting; Cuff Location : Left Arm; Cuff Size: Standard 11-04-2015 10:57-0400 Heart rate 80 /min Orin Andrade [facility], Inc.; [employer] Comment on above: Pattern: Regular 11-04-2015 10:57-0400 Systolic blood pressure 110 mm[Hg] Orin Andrade [facility], Inc.; [facility], [employer]. Comment on above: Patient Position: Sitting; Cuff Location : Left Arm; Cuff Size: Standard 07-22-2015 08:20-0400 Body height 160.02 cm Elida Flores [facility], Inc.; [employer] 07-22-2015 08:20-0400 Body mass index (BMI) [Ratio] 23.03 kg/m2 Elida Flores [facility], Inc.; [employer] 07-22-2015 08:20-0400 Body surface area Derived from formula 1.[address] [facility] [employer] [facility], Inc.; [employer] 07-22-2015 08:20-0400 Body temperature 98.9 [degF] Elida Flores [facility] [employer] [facility], Inc.; [facility], [facility]. Comment on above: Method: Tympanic 07-22-2015 08:20-0400 Body weight 58.97 kg Elida Flores CLINICAL DATA MANAGEMENT DIRECTOR [facility], Inc.; [facility], [employer] 07-22-2015 08:20-0400 Diastolic blood pressure 73 mm[Hg] Elida Flores ABDELRAHMAN [place] [employer] [facility], Inc.; [facility], [employer]. Comment on above: Patient Position: Sitting; Cuff Location : Left Arm; Cuff Size: Large 07-22-2015 08:20-0400 Heart rate 81 /min Elida Flores ABDELRAHMAN [facility], Inc.; [facility], [employer]. Comment on above: Pattern: Regular 07-22-2015 08:20-0400 Systolic blood pressure 109 mm[Hg] Elida Flores ABDELRAHMAN [place] [employer] [facility], Inc.; [facility], [employer]. Comment on above: Patient Position: Sitting; Cuff Location : Left Arm; Cuff Size: Large 04-16-2015 09:21-0500 Body height 160.02 cm Melanie Encarnacion LPN [facility], Inc.; [facility], [employer] 04-16-2015 09:21-0500 Body mass index (BMI) [Ratio] 23.91 kg/m2 Melanie Encarnacion LPN [facility], Inc.; [facility], [facility] 04-16-2015 09:21-0500 Body surface area Derived from formula 1.64 m2 Melanie Encarnacion LPN [facility], Inc.; [facility], [facility] 04-16-2015 09:21-0500 Body temperature 98.4 [degF] Melanie Encarnacion LPN [place] [employer] [facility], Inc.; [facility], [employer]. Comment on above: Method: Tympanic 04-16-2015 09:21-0500 Body weight 61.24 kg Melanie Encarnacion LPN [place] [employer] [facility], Inc.; [facility], [employer] 04-16-2015 09:21-0500 Diastolic blood pressure 64 mm[Hg] Melanie Encarnacion LPN [place] [employer] [facility], Inc.; [facility], [employer]. Comment on above: Patient Position: Sitting; Cuff Location : Right Arm; Cuff Size: Standard 04-16-2015 09:21-0500 Heart rate 75 /min Melanie Encarnacion LPN [place] [employer] [facility], Inc.; [employer]. Comment on above: Pattern: Regular 04-16-2015 09:21-0500 Systolic blood pressure 96 mm[Hg] Melanie [facility]PN [facility].; [employer]. Comment on above: Patient Position: Sitting; Cuff Location : Right Arm; Cuff Size: Standard 02-16-2014 10:08-0500 Body height 160.02 cm Orin Jose Rchin QUICK [facility], [facility].; [place] [employer]. 02-16-2014 10:08-0500 Body mass index (BMI) [Ratio] 23.56 kg/m2 [facility]in [facility].; [place] [employer]. 02-16-2014 10:08-0500 Body surface area Derived from formula 1.63 m2 Orin Andrade LPN [facility].; [employer]. 02-16-2014 10:08-0500 Body temperature 98.5 [degF] Orin Andrade CLINICAL DATA MANAGEMENT DIRECTOR [place] [employer] [facility], Inc.; [employer]. Comment on above: Method: Tympanic 02-16-2014 10:08-0500 Body weight 60.33 kg Orin Jose Rchin CLINICAL DATA MANAGEMENT DIRECTOR [place] [employer] [facility], Inc.; [employer]. 02-16-2014 10:08-0500 Diastolic blood pressure 77 mm[Hg] Orin Andrade LPN [place] [employer] [facility], Inc.; [employer]. Comment on above: Patient Position: Sitting; Cuff Location : Left Arm; Cuff Size: Standard 02-16-2014 10:08-0500 Heart rate 71 /min Orin Andrade LPN [place] [employer] [facility], Inc.; [employer]. Comment on above: Pattern: Regular 02-16-2014 10:08-0500 Inhaled oxygen concentration 21 % [facility] [employer] [facility], Inc.; [employer]. Comment on above: Room air 02-16-2014 10:08-0500 SaO2% (BldA) [Mass fraction] 98 % Orni [facility]rade LPN [facility] Inc.; [employer]. 02-16-2014 10:08-0500 Systolic blood pressure 105 mm[Hg] Orin Andrade CLINICAL DATA MANAGEMENT DIRECTOR [employer].; [employer]. Comment on above: Patient Position: Sitting; Cuff Location : Left Arm; Cuff Size: Standard 06-09-2013 14:49-0400 Body height 160.02 cm Michelle Taylor CLINICAL DATA MANAGEMENT DIRECTOR Work Phone: [employer].; [employer]. 06-09-2013 14:49-0400 Body mass index (BMI) [Ratio] 21.61 kg/m2 Michelle Bolanosy CLINICAL DATA MANAGEMENT DIRECTOR Work Phone: [employer].; [employer]. 06-09-2013 14:49-0400 Body surface area Derived from formula 1.57 m2 Michelle Taylor CLINICAL DATA MANAGEMENT DIRECTOR Work Phone: [employer].; [employer]. 06-09-2013 14:49-0400 Body temperature 99.6 [degF] Michelle Taylor CLINICAL DATA MANAGEMENT DIRECTOR Work Phone: [employer].; [employer]. Comment on above: Method: Tympanic 06-09-2013 14:49-0400 Body weight 55.34 kg Michelle Taylor CLINICAL DATA MANAGEMENT DIRECTOR Work Phone: [employer].; [employer]. 06-09-2013 14:49-0400 Diastolic blood pressure 67 mm[Hg] Michelle Bolanosy CLINICAL DATA MANAGEMENT DIRECTOR Work Phone: [employer].; [employer]. Comment on above: Patient Position: Sitting; Cuff Location : Left Arm; Cuff Size: Standard 06-09-2013 14:49-0400 Heart rate 92 /min Michelle Bolanosy CLINICAL DATA MANAGEMENT DIRECTOR Work Phone: [employer].; [employer]. Comment on above: Pattern: Regular 06-09-2013 14:49-0400 Systolic blood pressure 101 mm[Hg] Michelle Claudia CLINICAL DATA MANAGEMENT DIRECTOR Work Phone: [employer].; [employer] [facility], Inc. Comment on above: Patient Position: Sitting; Cuff Location : Left Arm; Cuff Size: Standard 04-06-2013 09:31-0500 Body height 160.02 cm Orin Andrade LPN [facility], [facility].; [place] [employer] [facility], [employer]. 04-06-2013 09:31-0500 Body mass index (BMI) [Ratio] 21.85 kg/m2 Orin Andrade LPN [facility], [facility].; [facility], [facility]. 04-06-2013 09:31-0500 Body surface area Derived from formula 1.58 m2 Orin Andrade LPN [facility], [facility].; [facility], [facility]. 04-06-2013 09:31-0500 Body weight 55.96 kg Orin Andrade LPN [facility], [facility].; [place] [employer] [facility], [facility]. 04-06-2013 09:31-0500 Diastolic blood pressure 65 mm[Hg] Orin Andrade LPN [facility], [facility].; [employer]. Comment on above: Patient Position: Sitting; Cuff Location : Left Arm; Cuff Size: Standard 04-06-2013 09:31-0500 Heart rate 73 /min Orin Andrade LPN [facility], [facility].; [employer], [employer]. Comment on above: Pattern: Regular 04-06-2013 09:31-0500 Systolic blood pressure 102 mm[Hg] Orin Andrade LPN [facility], [facility].; [place] [employer]. Comment on above: Patient Position: Sitting; Cuff Location : Left Arm; Cuff Size: Standard 12-31-2012 10:32-0500 Body temperature 97.5 [degF] Doriilee L Vess CLINICAL DATA MANAGEMENT DIRECTOR [facility], [employer].; [employer]. Comment on above: Method: Tympanic 12-31-2012 10:32-0500 Body weight 54.43 kg Neilee L Vess CLINICAL DATA MANAGEMENT DIRECTOR [facility], Inc.; [employer] 12-31-2012 10:32-0500 Diastolic blood pressure 75 mm[Hg] Neilee L Vess CLINICAL DATA MANAGEMENT DIRECTOR [facility], Inc.; [place] [employer] [facility], Inc. Comment on above: Patient Position: Sitting; Cuff Location : Left Arm; Cuff Size: Standard 12-31-2012 10:32-0500 Heart rate 91 /min Jose Wagner Bill CLINICAL DATA MANAGEMENT DIRECTOR [facility], Inc.; [place] [employer]. Comment on above: Pattern: Regular 12-31-2012 10:32-0500 Systolic blood pressure 107 mm[Hg] Doriilee L Vess CLINICAL DATA MANAGEMENT DIRECTOR [facility], Inc.; [place] [employer]. Comment on above: Patient Position: Sitting; Cuff Location : Left Arm; Cuff Size: Standard 10-20-2012 15:42-0400 Body height 160.02 cm Orin Lupe [facility], Inc.; [place] [employer], [employer]. 10-20-2012 15:42-0400 Body mass index (BMI) [Ratio] 21.84 kg/m2 Orin Wechin [facility], Inc.; [place] [employer] [facility], [employer]. 10-20-2012 15:42-0400 Body surface area Derived from formula 1.57 m2 Orin Andrade [facility], [facility].; [employer]. 10-20-2012 15:42-0400 Body weight 55.93 kg Orin Wechin [facility], [facility].; [place] [employer], [employer]. 10-20-2012 15:42-0400 Diastolic blood pressure 68 mm[Hg] Orinnimisha Andrade [facility], Inc.; [place] [employer]. Comment on above: Patient Position: Sitting; Cuff Location : Left Arm; Cuff Size: Standard 10-20-2012 15:42-0400 Heart rate 66 /min Orin Wechin QUICK [facility], Inc.; [employer]. Comment on above: Pattern: Regular 10-20-2012 15:42-0400 Systolic blood pressure 97 mm[Hg] Orin Lupe QUICK [facility], Inc.; [employer]. Comment on above: Patient Position: Sitting; Cuff Location : Left Arm; Cuff Size: Standard 11-03-2011 08:56-0400 Body height 156.21 cm Jose Khan CLINICAL DATA MANAGEMENT DIRECTOR [employer], [facility].; [facility], [facility]. 11-03-2011 08:56-0400 Body mass index (BMI) [Ratio] 24.17 kg/m2 Neilee L Vess CLINICAL DATA MANAGEMENT DIRECTOR [employer] [facility], Inc.; [employer], [employer] 11-03-2011 08:56-0400 Body surface area Derived from formula 1.58 m2 Neilee L Vess CLINICAL DATA MANAGEMENT DIRECTOR [employer], [employer].; [employer]. 11-03-2011 08:56-0400 Body weight 58.97 kg Neilee L Vess CLINICAL DATA MANAGEMENT DIRECTOR [employer].; [employer]. 11-03-2011 08:56-0400 Diastolic blood pressure 74 mm[Hg] Neilee L Vess CLINICAL DATA MANAGEMENT DIRECTOR [employer].; [employer]. Comment on above: Patient Position: Sitting; Cuff Location : Right Arm; Cuff Size: Standard 11-03-2011 08:56-0400 Heart rate 70 /min Doriilee L Vess CLINICAL DATA MANAGEMENT DIRECTOR [employer], [facility].; [employer]. Comment on above: Pattern: Regular 11-03-2011 08:56-0400 Systolic blood pressure 120 mm[Hg] Neilee L Vess CLINICAL DATA MANAGEMENT DIRECTOR [employer] [facility].; [employer]. Comment on above: Patient Position: Sitting; Cuff Location : Right Arm; Cuff Size: Standard 01-09-2011 15:22-0500 Body height 160.02 cm Ashley Chin PA-C Work Phone: [employer].; [employer]. 01-09-2011 15:22-0500 Body mass index (BMI) [Ratio] 23.21 kg/m2 Ashley Chin PA-C Work Phone: [employer].; [employer]. 01-09-2011 15:22-0500 Body surface area Derived from formula 1.62 m2 Ashley Chin PA-C Work Phone: [employer].; [employer]. 01-09-2011 15:22-0500 Body weight 59.42 kg Ashley Chin PA-C Work Phone: [employer]; [employer]. 01-09-2011 15:22-0500 Diastolic blood pressure 70 mm[Hg] Ashley Lopezer PA-C Work Phone: [employer].; [employer]. Comment on above: Patient Position: Sitting; Cuff Location : Left Arm; Cuff Size: Standard 01-09-2011 15:22-0500 Heart rate 72 /min Ashley Lopezer PA-C Work Phone: [employer].; [employer]. Comment on above: Pattern: Regular 01-09-2011 15:22-0500 Systolic blood pressure 104 mm[Hg] Ashley Lopezer PA-C Work Phone: [employer]; [employer]. Comment on above: Patient Position: Sitting; Cuff Location : Left Arm; Cuff Size: Standard 01-07-2011 15:32-0500 Body weight 59.88 kg Michelle Taylor CLINICAL DATA MANAGEMENT DIRECTOR Work Phone: [employer].; [employer]. 01-07-2011 15:32-0500 Diastolic blood pressure 75 mm[Hg] Michelle Taylor CLINICAL DATA MANAGEMENT DIRECTOR Work Phone: [employer].; [employer]. Comment on above: Patient Position: Sitting; Cuff Location : Left Arm; Cuff Size: Standard 01-07-2011 15:32-0500 Heart rate 69 /min Michelle Taylor CLINICAL DATA MANAGEMENT DIRECTOR Work Phone: [employer].; [employer]. Comment on above: Pattern: Regular 01-07-2011 15:32-0500 Systolic blood pressure 114 mm[Hg] Michelle Taylor CLINICAL DATA MANAGEMENT DIRECTOR Work Phone: [employer].; [employer]. Comment on above: Patient Position: Sitting; Cuff Location : Left Arm; Cuff Size: Standard 12-15-2010 08:20-0500 Body temperature 97.2 [degF] Miladis Frazier CLINICAL DATA MANAGEMENT DIRECTOR [employer].; [employer]. 12-15-2010 08:20-0500 Body weight 63.05 kg Miladis E Freddie QUICK [employer] [facility], [employer].; [employer]. 12-15-2010 08:20-0500 Diastolic blood pressure 74 mm[Hg] Miladis Frazier LPN [employer], [employer].; [facility], [employer]. Comment on above: Patient Position: Sitting; Cuff Location : Left Arm; Cuff Size: Standard 12-15-2010 08:20-0500 Heart rate 80 /min Miladis Frazier LPN [employer], [employer]. Comment on above: Pattern: Regular 12-15-2010 08:20-0500 Systolic blood pressure 106 mm[Hg] Miladis Frazier CLINICAL DATA MANAGEMENT DIRECTOR [employer]. Comment on above: Patient Position: Sitting; Cuff Location : Left Arm; Cuff Size: Standard 11-26-2010 08:58-0400 Body temperature 100.1 [degF] Neilee L Vess CLINICAL DATA MANAGEMENT DIRECTOR [employer], [employer].; [facility] 11-26-2010 08:58-0400 Body weight 63.05 kg Neilee L Vess CLINICAL DATA MANAGEMENT DIRECTOR [employer].; [employer]. 11-26-2010 08:58-0400 Diastolic blood pressure 80 mm[Hg] Neilee L Vess CLINICAL DATA MANAGEMENT DIRECTOR [employer].; [employer]. Comment on above: Patient Position: Sitting; Cuff Location : Left Arm; Cuff Size: Standard 11-26-2010 08:58-0400 Heart rate 106 /min Neilee L Vess CLINICAL DATA MANAGEMENT DIRECTOR [employer].; [employer]. Comment on above: Pattern: Regular 11-26-2010 08:58-0400 Systolic blood pressure 125 mm[Hg] Neilee L Vess CLINICAL DATA MANAGEMENT DIRECTOR [employer].; [employer]. Comment on above: Patient Position: Sitting; Cuff Location : Left Arm; Cuff Size: Standard 11-12-2010 15:29-0400 Body height 160.02 cm Michelle Claudia QUICK Work Phone: [employer].; [employer]. 11-12-2010 15:29-0400 Body mass index (BMI) [Ratio] 24.8 kg/m2 Michelle Claudia CLINICAL DATA MANAGEMENT DIRECTOR Work Phone: [employer].; [employer] 11-12-2010 15:29-0400 Body surface area Derived from formula 1.66 m2 Michelle Claudia CLINICAL DATA MANAGEMENT DIRECTOR Work Phone: [employer].; [employer]. 11-12-2010 15:29-0400 Body weight 63.5 kg Michelle Claudia CLINICAL DATA MANAGEMENT DIRECTOR Work Phone: [employer].; [employer]. 11-12-2010 15:29-0400 Diastolic blood pressure 78 mm[Hg] Michelle Claudia CLINICAL DATA MANAGEMENT DIRECTOR Work Phone: [employer].; [employer]. Comment on above: Patient Position: Sitting; Cuff Location : Left Arm; Cuff Size: Standard 11-12-2010 15:29-0400 Heart rate 82 /min Michelle Claudia CLINICAL DATA MANAGEMENT DIRECTOR Work Phone: [employer].; [employer]. Comment on above: Pattern: Regular 11-12-2010 15:29-0400 Systolic blood pressure 110 mm[Hg] Michelle Claudia CLINICAL DATA MANAGEMENT DIRECTOR Work Phone: [employer].; [employer]. Comment on above: Patient Position: Sitting; Cuff Location : Left Arm; Cuff Size: Standard 07-25-2010 11:03-0400 Body weight 63.5 kg Michelle Claudia CLINICAL DATA MANAGEMENT DIRECTOR Work Phone: [employer].; [employer]. 07-25-2010 11:03-0400 Diastolic blood pressure 76 mm[Hg] Michelle Claudia CLINICAL DATA MANAGEMENT DIRECTOR Work Phone: [employer].; [employer]. Comment on above: Patient Position: Sitting; Cuff Location : Left Arm; Cuff Size: Standard 07-25-2010 11:03-0400 Heart rate 76 /min Michelle Claudia CLINICAL DATA MANAGEMENT DIRECTOR Work Phone: [employer].; [employer]. Comment on above: Pattern: Regular 07-25-2010 11:03-0400 Systolic blood pressure 109 mm[Hg] Michelle Taylor LPN Work Phone: [employer].; [employer]. Comment on above: Patient Position: Sitting; Cuff Location : Left Arm; Cuff Size: Standard 06-09-2010 16:00-0400 Body weight 77.11 kg Michelle Taylor LPN Work Phone: [employer].; [employer]. 06-09-2010 16:00-0400 Diastolic blood pressure 71 mm[Hg] Michelle Taylor LPN Work Phone: [employer].; [employer]. Comment on above: Patient Position: Sitting; Cuff Location : Left Arm; Cuff Size: Standard 06-09-2010 16:00-0400 Heart rate 82 /min Michelle Taylor LPN Work Phone: [employer].; [employer]. Comment on above: Pattern: Regular 06-09-2010 16:00-0400 Systolic blood pressure 115 mm[Hg] Michelle Taylor LPN Work Phone: [employer].; [employer]. Comment on above: Patient Position: Sitting; Cuff Location : Left Arm; Cuff Size: Standard 06-06-2010 08:01-0400 Body weight 75.3 kg Miladis Frazier LPN [employer].; [employer]. 06-06-2010 08:01-0400 Diastolic blood pressure 58 mm[Hg] Miladis Frazier LPN [employer].; [employer]. Comment on above: Patient Position: Sitting; Cuff Location : Left Arm; Cuff Size: Standard 06-06-2010 08:01-0400 Heart rate 90 /min Miladis Frazier LPN [employer].; [employer]. Comment on above: Pattern: Regular 06-06-2010 08:01-0400 Systolic blood pressure 105 mm[Hg] Miladis Kathleen Frazier CLINICAL DATA MANAGEMENT DIRECTOR [employer].; [employer]. Comment on above: Patient Position: Sitting; Cuff Location : Left Arm; Cuff Size: Standard 06-02-2010 15:56-0400 Body weight 76.2 kg Michelle Taylor CLINICAL DATA MANAGEMENT DIRECTOR Work Phone: [employer]. 06-02-2010 15:56-0400 Diastolic blood pressure 74 mm[Hg] Michelle Claudia CLINICAL DATA MANAGEMENT DIRECTOR Work Phone: [employer]. Comment on above: Patient Position: Sitting; Cuff Location : Left Arm; Cuff Size: Standard 06-02-2010 15:56-0400 Heart rate 84 /min Michelle Bolanosy CLINICAL DATA MANAGEMENT DIRECTOR Work Phone: [employer]. Comment on above: Pattern: Regular 06-02-2010 15:56-0400 Systolic blood pressure 113 mm[Hg] Michelle Bolanosy CLINICAL DATA MANAGEMENT DIRECTOR Work Phone: [employer]. Comment on above: Patient Position: Sitting; Cuff Location : Left Arm; Cuff Size: Standard 05-26-2010 16:38-0400 Body weight 74.84 kg Michelle Taylor CLINICAL DATA MANAGEMENT DIRECTOR Work Phone: [employer].; [employer]. 05-26-2010 16:38-0400 Diastolic blood pressure 74 mm[Hg] Michelle Claudia CLINICAL DATA MANAGEMENT DIRECTOR Work Phone: [employer]. Comment on above: Patient Position: Sitting; Cuff Location : Left Arm; Cuff Size: Standard 05-26-2010 16:38-0400 Heart rate 96 /min Imchelle Claudia CLINICAL DATA MANAGEMENT DIRECTOR Work Phone: [employer].; [employer]. Comment on above: Pattern: Regular 05-26-2010 16:38-0400 Systolic blood pressure 114 mm[Hg] Michelle Claudia CLINICAL DATA MANAGEMENT DIRECTOR Work Phone: [employer]. Comment on above: Patient Position: Sitting; Cuff Location : Left Arm; Cuff Size: Standard 05-19-2010 16:55-0400 Body weight 74.84 kg Michelle Claudia CLINICAL DATA MANAGEMENT DIRECTOR Work Phone: [employer]. 05-19-2010 16:55-0400 Diastolic blood pressure 71 mm[Hg] Michelle Claudia CLINICAL DATA MANAGEMENT DIRECTOR Work Phone: [employer]. Comment on above: Patient Position: Sitting; Cuff Location : Left Arm; Cuff Size: Standard 05-19-2010 16:55-0400 Heart rate 90 /min Michelle Claudia CLINICAL DATA MANAGEMENT DIRECTOR Work Phone: [employer]. Comment on above: Pattern: Regular 05-19-2010 16:55-0400 Systolic blood pressure 111 mm[Hg] Michelle Claudia CLINICAL DATA MANAGEMENT DIRECTOR Work Phone: [employer]. Comment on above: Patient Position: Sitting; Cuff Location : Left Arm; Cuff Size: Standard 05-12-2010 15:33-0400 Body weight 73.48 kg Michelle Claudia CLINICAL DATA MANAGEMENT DIRECTOR Work Phone: [employer]. 05-12-2010 15:33-0400 Diastolic blood pressure 67 mm[Hg] Michelle Claudia CLINICAL DATA MANAGEMENT DIRECTOR Work Phone: [employer]. Comment on above: Patient Position: Sitting; Cuff Location : Left Arm; Cuff Size: Standard 05-12-2010 15:33-0400 Heart rate 87 /min Michelle Claudia CLINICAL DATA MANAGEMENT DIRECTOR Work Phone: [employer]. Comment on above: Pattern: Regular 05-12-2010 15:33-0400 Systolic blood pressure 110 mm[Hg] Michelle Claudia CLINICAL DATA MANAGEMENT DIRECTOR Work Phone: [employer]. Comment on above: Patient Position: Sitting; Cuff Location : Left Arm; Cuff Size: Standard 04-14-2010 15:45-0500 Body weight 69.85 kg Michelle Claudia CLINICAL DATA MANAGEMENT DIRECTOR Work Phone: [employer]. 04-14-2010 15:45-0500 Diastolic blood pressure 67 mm[Hg] Michelle Claudia CLINICAL DATA MANAGEMENT DIRECTOR Work Phone: [employer]. Comment on above: Patient Position: Sitting; Cuff Location : Left Arm; Cuff Size: Standard 04-14-2010 15:45-0500 Heart rate 83 /min Michelle Claudia CLINICAL DATA MANAGEMENT DIRECTOR Work Phone: [employer]. Comment on above: Pattern: Regular 04-14-2010 15:45-0500 Systolic blood pressure 112 mm[Hg] Michelle Claudia CLINICAL DATA MANAGEMENT DIRECTOR Work Phone: [employer]. Comment on above: Patient Position: Sitting; Cuff Location : Left Arm; Cuff Size: Standard 03-17-2010 14:57-0500 Body temperature 99.3 [degF] Michelle Claudia CLINICAL DATA MANAGEMENT DIRECTOR Work Phone: [employer]. Comment on above: Method: Tympanic 03-17-2010 14:57-0500 Body weight 68.04 kg Michelle Claudia CLINICAL DATA MANAGEMENT DIRECTOR Work Phone: [employer]. 03-17-2010 14:57-0500 Diastolic blood pressure 74 mm[Hg] Michelle Claudia CLINICAL DATA MANAGEMENT DIRECTOR Work Phone: [employer]. Comment on above: Patient Position: Sitting; Cuff Location : Left Arm; Cuff Size: Standard 03-17-2010 14:57-0500 Heart rate 94 /min Michelle Claudia CLINICAL DATA MANAGEMENT DIRECTOR Work Phone: [employer]; [employer] Comment on above: Pattern: Regular 03-17-2010 14:57-0500 Systolic blood pressure 113 mm[Hg] Michelle Claudia CLINICAL DATA MANAGEMENT DIRECTOR Work Phone: [employer]. Comment on above: Patient Position: Sitting; Cuff Location : Left Arm; Cuff Size: Standard 02-20-2010 16:15-0500 Body weight 64.86 kg Neilee L Vess CLINICAL DATA MANAGEMENT DIRECTOR [employer]. 02-20-2010 16:15-0500 Diastolic blood pressure 69 mm[Hg] Neilee L Vess CLINICAL DATA MANAGEMENT DIRECTOR [employer]. Comment on above: Patient Position: Sitting; Cuff Location : Left Arm; Cuff Size: Standard 02-20-2010 16:15-0500 Heart rate 88 /min Neilee L Vess CLINICAL DATA MANAGEMENT DIRECTOR [employer]. Comment on above: Pattern: Regular 02-20-2010 16:15-0500 Systolic blood pressure 111 mm[Hg] Neilee L Vess CLINICAL DATA MANAGEMENT DIRECTOR [employer]. Comment on above: Patient Position: Sitting; Cuff Location : Left Arm; Cuff Size: Standard 01-23-2010 15:18-0500 Body weight 62.14 kg Michelle Claudia CLINICAL DATA MANAGEMENT DIRECTOR Work Phone: [employer]. 01-23-2010 15:18-0500 Diastolic blood pressure 71 mm[Hg] Michelle Claudia CLINICAL DATA MANAGEMENT DIRECTOR Work Phone: [employer]. Comment on above: Patient Position: Sitting; Cuff Location : Left Arm; Cuff Size: Standard 01-23-2010 15:18-0500 Heart rate 95 /min Michelle Claudia CLINICAL DATA MANAGEMENT DIRECTOR Work Phone: [employer]. Comment on above: Pattern: Regular 01-23-2010 15:18-0500 Systolic blood pressure 106 mm[Hg] Michelle Claudia CLINICAL DATA MANAGEMENT DIRECTOR Work Phone: [employer] [facility] Comment on above: Patient Position: Sitting; Cuff Location : Left Arm; Cuff Size: Standard 12-26-2009 15:31-0500 Body weight 59.42 kg Neilee L Vess CLINICAL DATA MANAGEMENT DIRECTOR [facility] [employer] 12-26-2009 15:31-0500 Diastolic blood pressure 70 mm[Hg] Neilee L Vess CLINICAL DATA MANAGEMENT DIRECTOR [employer] Comment on above: Patient Position: Sitting; Cuff Location : Left Arm; Cuff Size: Standard 12-26-2009 15:31-0500 Heart rate 91 /min Neilee L Vess CLINICAL DATA MANAGEMENT DIRECTOR [employer] [facility], [employer]. Comment on above: Pattern: Regular 12-26-2009 15:31-0500 Systolic blood pressure 102 mm[Hg] Neilee L Vess CLINICAL DATA MANAGEMENT DIRECTOR [employer] [facility] [employer]. Comment on above: Patient Position: Sitting; Cuff Location : Left Arm; Cuff Size: Standard Encounters Encounter Date Encounter Type Care Provider Facility Start: 08-31-2024 End: 08-31-2024 ambulatory [facility] Start: 08-31-2024 End: 08-31-2024 Patient encounter procedure Litzy Gomez LPN [facility] Start: 08-31-2024 End: 08-31-2024 Periodic preventive med est patient 40-64yrs Ashley Lopezer PA-C Work Phone: [facility], [facility] Start: 08-22-2024 End: 08-22-2024 ambulatory [facility] Start: 08-18-2024 End: 08-18-2024 ambulatory [facility] Start: 08-08-2024 End: 08-08-2024 ambulatory [facility] Start: 07-05-2024 End: 07-05-2024 Orders Ashley Lopezer PA-C Work Phone[facility] [employer] [facility] Start: 12-01-2023 End: 11-29-2023 Historical Summary Ashley Chin PA-C [facility] Start: 12-01-2023 End: 12-01-2023 Patient encounter procedure Ashley Chin PA-C Work Phone[facility] [facility] [employer] Start: 12-01-2023 End: 12-01-2023 Periodic preventive med est patient 40-64yrs Ashley Chin PA-C Work Phone: [facility] [facility] Start: 11-25-2023 End: 11-25-2023 ambulatory ASHLEY CHIN [facility] Start: 10-21-2023 End: 10-21-2023 Orders Ashley Chin PA-C Work Phone: [employer] Start: 10-21-2023 Review Ashley Chin PA-C Work Phone: [employer]. Start: 05-12-2023 End: 05-12-2023 Orders Ashley Lopezer PA-C Work Phone: [employer] Start: 11-26-2022 End: 11-26-2022 Patient encounter procedure Ashley Chin PA-C Work Phone: [employer] Start: 11-23-2022 End: 11-23-2022 Orders Ashley Lopezer PA-C Work Phone: [employer] Start: 10-13-2022 End: 10-14-2022 Observation ROSALVA PETIT MD [facility] Start: 10-06-2022 ambulatory ROSALVA PETIT MD [facility] ity:A Start: 05-14-2022 End: 05-14-2022 ambulatory ALEXANDER REILLY DO Facility:B Start: 05-14-2022 End: 05-14-2022 SAME DAY STAY ALEXANDER REILLY DO [facility] Start: 04-30-2022 End: 05-01-2022 ambulatory ALEXANDER REILLY DO Facility:[facility] Start: 04-30-2022 End: 04-30-2022 Admission to establishment ALEXANDER REILLY DO [facility] Start: 03-23-2022 End: 03-28-2022 ambulatory LAEXANDER REILLY DO Facility:B Start: 12-26-2021 ambulatory Анна Matthews lity:[facility] Start: 12-03-2021 End: 12-03-2021 Medication Ashley Chin PA-C Work Phone: [employer] Start: 11-27-2021 End: 11-27-2021 Patient encounter procedure Ashley Chin PA-C Work Phone: [employer] Start: 11-24-2021 End: 11-24-2021 Orders Ashley Chin PA-C Work Phone: [employer] Start: 09-12-2021 End: 09-12-2021 Patient encounter procedure Mary Vazquez APRN.[facility] Work Phone: URO/Gynecology Comment on above: Encounter for fittin g and adjustment of pessary (Primary Dx); Cystocele, midline; Incomplete bladder emptying; ROSELYN (stress urinary incontinence, female) Start: 08-20-2021 End: 08-20-2021 Patient encounter procedure Cielo Suarez MD Work Phone: URO/Gynecology Comment on above: Cystocele, midline ( Primary Dx); Incomplete bladder emptying; Urinary urgency; Urinary frequency; ROSELYN (stress urinary incontinence, female); Abnormal urine findings Start: 08-19-2021 Telephone encounter Cielo franco MD Work Phone: Urology Comment on above: No Show Start: 06-19-2021 Telephone encounter Dominic Ruff MD Work Phone: [facility] Comment on above: Appointment Start: 06-17-2021 End: 06-17-2021 Patient encounter procedure Handy Mcpherson PA-C Work Phone: Urology Comment on above: Cystocele, unspecifi ed (CODE) (Primary Dx); Dysuria; OAB (overactive bladder) Start: 05-30-2021 End: 05-30-2021 Patient encounter procedure Yvette Pearson MD Work Phone: OB/Gynecology Comment on above: Encounter for gyneco logical examination (general) (routine) without abnormal findings (Primary Dx); Screening for cervical cancer; Encounter for screening for human papillomavirus (HPV); Urinary frequency; Pelvic floor dysfunction; Bladder pain Start: 05-30-2021 End: 05-30-2021 Patient encounter status Yvette Pearson MD Work Phone: OB/Gynecology Start: 01-22-2021 End: 01-22-2021 Office outpatient visit 15 minutes Ashley Chin PA-C Work Phone: [employer] Start: 01-15-2021 End: 01-15-2021 Orders Ashley Chin PA-C Work Phone: [employer] Start: 12-05-2020 End: 12-05-2020 Patient encounter procedure Ashley Chin PA-C Work Phone: [employer]; [employer]. Start: 12-05-2020 End: 12-05-2020 Periodic preventive med est patient 18-39 yrs Ashley Chin PA-C Work Phone: [employer]. Start: 12-18-2019 End: 12-18-2019 Patient encounter procedure Ashley Chin PA-C Work Phone: [employer] Start: 12-11-2019 End: 12-11-2019 Orders Ashley Chin PA-C Work Phone: [employer] Start: 12-15-2018 End: 12-15-2018 Patient encounter procedure Orin Andrade LPN [place]; [employer]. Start: 12-15-2018 End: 12-15-2018 Periodic preventive med est patient 18-39 yrs Ashley Lopezer PA-C Work Phone: [employer]. Start: 08-02-2018 End: 08-02-2018 Office outpatient visit 15 minutes Ashley Lopezer PA-C Work Phone: [employer]. Start: 03-07-2018 End: 03-07-2018 Medication Ashley Lopezer PA-C Work Phone: [employer]. Start: 02-17-2018 End: 02-17-2018 Medication Ashley Chin PA-C Work Phone: [employer]. Start: 12-22-2017 End: 12-22-2017 Patient encounter procedure Orin Andrade LPN [employer]. Start: 12-22-2017 End: 12-22-2017 Periodic preventive med est patient 18-39 yrs Ashley Chin PA-C Work Phone: [employer]. Start: 11-13-2016 End: 11-13-2016 Patient encounter status Ashley Chin PA-C Work Phone: [employer]. Start: 11-13-2016 End: 11-13-2016 Periodic preventive med est patient 18-39 yrs Ashley Lopezer PA-C Work Phone: [employer]. Start: 06-11-2016 End: 06-11-2016 Office outpatient visit 15 minutes Ashley Chin PA-C Work Phone: [employer]. Start: 11-04-2015 End: 11-04-2015 Patient encounter procedure Ashley Lopezer PA-C Work Phone: [employer]. Start: 11-04-2015 End: 11-04-2015 Patient encounter status Ashley Lopezer PA-C Work Phone: [employer]. Start: 09-24-2015 End: 09-25-2015 Orders Ashley Chin PA-C Work Phone: [employer] Start: 09-19-2015 End: 09-19-2015 Orders Ashley Chin PA-C Work Phone: [employer]. Start: 07-22-2015 End: 07-22-2015 Office outpatient visit 15 minutes Ashley Chin PA-C Work Phone: [employer]. Start: 04-16-2015 End: 04-16-2015 Office outpatient visit 15 minutes Ashley Chin PA-C Work Phone: [employer]. Start: 05-09-2014 End: 05-10-2014 Medication Ashley Chin PA-C Work Phone: [employer]. Start: 03-02-2014 End: 03-02-2014 Medication Ashley Chin PA-C Work Phone: [employer]. Start: 02-19-2014 End: 02-19-2014 Orders Ashley Chin PA-C Work Phone: [employer]. Start: 02-16-2014 End: 02-16-2014 Manual pelvic examination Orin Andrade LPN [facility] [facility] [employer] Start: 02-16-2014 End: 02-16-2014 Patient encounter procedure Ashley Chin PA-C Work Phone: [employer]. Start: 06-09-2013 End: 06-09-2013 Patient encounter procedure Ashley Chin PA-C Work Phone: [employer]. Start: 04-06-2013 End: 04-06-2013 Patient encounter procedure Ashley Chin PA-C Work Phone: [employer]. Start: 01-25-2013 End: 01-25-2013 Medication Ashley Chin PA-C Work Phone: [employer] Start: 12-31-2012 End: 12-31-2012 Patient encounter procedure Ashley Chin PA-C Work Phone: [facility]. Start: 10-20-2012 End: 10-20-2012 [facility]. Start: 10-20-2012 End: 10-20-2012 Patient encounter procedure Ashley Chin PA-C Work Phone: [facility]. Start: 11-03-2011 End: 11-03-2011 Manual pelvic examination Jose Khan CLINICAL DATA MANAGEMENT DIRECTOR [facility].; [facility]. Start: 11-03-2011 End: 11-03-2011 Patient encounter procedure Ashley Chin PA-C Work Phone: [facility]. Start: 02-10-2011 End: 02-10-2011 Historical Summary Ashley Chin PA-C Work Phone: [facility] [employer] Start: 01-09-2011 End: 01-09-2011 Patient encounter procedure [facility] Start: 01-07-2011 End: 01-07-2011 Procedure [facility]C [facility] Start: 12-15-2010 End: 12-15-2010 Patient encounter procedure [facility]C [facility] Start: 12-02-2010 End: 12-03-2010 Medication Ashley Chin PA-C Work Phone: [employer] [facility] Start: 11-26-2010 End: 11-26-2010 Patient encounter procedure Ashley Chin PA-C Work Phone: [employer] [facility] Start: 11-12-2010 End: 11-12-2010 Patient encounter procedure Ashley Chin PA-C Work Phone: [employer] [facility] Start: 11-07-2010 End: 11-07-2010 Orders Ashley Chin PA-C Work Phone: [facility] [facility] Start: 11-06-2010 End: 11-06-2010 Orders Ashley Lopezer PA-C Work Phone: [facility] Start: 07-25-2010 End: 07-25-2010 Patient encounter procedure Ashleyshai Lopezer PA-C Work Phone: [facility] Start: 06-09-2010 End: 06-09-2010 Patient encounter procedure Ashley Chin PA-C Work Phone: [facility] Start: 06-06-2010 End: 06-06-2010 Patient encounter procedure Ashleyshai Lopezer PA-C Work Phone: [facility] Start: 06-02-2010 End: 06-02-2010 Patient encounter procedure Ashley Chin PA-C Work Phone: [facility] Start: 05-26-2010 End: 05-26-2010 Patient encounter procedure Ashley Chin PA-C Work Phone: [employer] [facility] Start: 05-19-2010 End: 05-19-2010 Patient encounter procedure Ashley Chin PA-C Work Phone: [facility] Start: 05-12-2010 End: 05-12-2010 Patient encounter procedure Ashley Chin PA-C Work Phone: [facility] [employer]. Start: 04-14-2010 End: 04-14-2010 Patient encounter procedure Ashley Chin PA-C Work Phone: [employer] [facility] Start: 03-24-2010 End: 03-24-2010 Nursing evaluation of patient and report Ashley Chin PA-C Work Phone: [employer] [facility] Start: 03-17-2010 End: 03-17-2010 Patient encounter procedure Ashley Chin PA-C Work Phone: [employer] Start: 02-22-2010 End: 02-22-2010 Medication Ashleyshai Lopezer PA-C Work Phone: [employer] Start: 02-21-2010 End: 02-21-2010 Historical Summary Ashley Chin PA-C Work Phone: [employer] Start: 02-20-2010 End: 02-20-2010 Patient encounter procedure Ashley Chin PA-C Work Phone: [employer] Start: 01-23-2010 End: 01-23-2010 Patient encounter procedure Ashley Chin PA-C Work Phone: [employer] Start: 12-27-2009 End: 12-27-2009 Laboratory examination ordered as part of a routine general medical examination Doris Miguel Work Phone: [employer]; [employer] Start: 12-27-2009 End: 12-27-2009 Orders Ashley Chin PA-C Work Phone: [employer] Start: 12-27-2009 End: 12-27-2009 Historical Summary Ashley Chin PA-C Work Phone: [employer] Start: 12-26-2009 End: 12-26-2009 Patient encounter procedure Ashley Chin PA-C Work Phone: [employer] Patient encounter procedure Ashley Chin PA-C Work Phone: [employer]; [employer] Patient encounter status Ashley GARCIAC Work Phone: [employer]; [employer] Procedures Date Procedure Procedure Detail Performing Clinician Start: 08-31-2024 End: 08-31-2024 Depression screening Ashley Chin PA -C Work Phone: Start: 08-31-2024 End: 08-31-2024 Scr dep neg, no plan reqd Ashley camara PA-C Work Phone: Start: 08-18-2024 End: 07-11-2025 Screening mammography Litzy Wagner PN Comment on above: Repeat 6 months due to abnormality of (R) breast Start: 08-08-2024 End: 08-08-2024 Glucose [Mass/volume] in Serum or Plasma Litzy Gomez LPN Comment on above: 76 Start: 08-08-2024 End: 08-08-2024 Lipid panel results documented & reviewed Litzy Gomez LPN Comment on above: TC 255, HDL 72, LDL 151, TRIG 162 Start: 07-05-2024 End: 08-23-2024 Screening digital breast tomosynthesis bi Ashley Faulkner Chin PA-C Work Phone: Start: 12-01-2023 End: 12-01-2023 Depression screening Ashley Faulkner Chin PA -C Work Phone: Start: 12-01-2023 End: 12-01-2023 Scr dep neg, no plan reqd Ashley Faulkner Palm er PA-C Work Phone: Start: 11-25-2023 End: 11-25-2023 Glucose [Mass/volume] in Serum or Plasma Clary Hernandez LPN Comment on above: Normal. 89 CMP Start: 11-25-2023 End: 11-25-2023 Lipid panel results documented & reviewed Clary Hernandez LPN Comment on above: TC 229, HDL 68, LDL 135, TRIG 129 Start: 07-26-2023 End: 07-26-2023 Screening mammography Clary Hernandez LPN Comment on above: Normal. Start: 05-12-2023 End: 07-26-2023 Screening digital breast tomosynthesis bi Ashley Faulkner Chin PA-C Work Phone: Start: 11-26-2022 End: 11-26-2022 Depression screening Ashley Faulkner Chin PA -C Work Phone: Start: 11-26-2022 End: 11-26-2022 Glucose [Mass/volume] in Serum or Plasma Violet Can LPN Comment on above: Normal. 88 CMP Start: 11-26-2022 End: 11-26-2022 Lipid panel results documented & reviewed Violet Can LPN Comment on above: tc 233, HDL 68, LDL 141, TRIG 120 Start: 11-26-2022 End: 11-26-2022 Scr dep neg, no plan reqd Ashley Faulkner Jessica THOMAS-C Work Phone: Start: 11-26-2022 End: 11-26-2022 Thyrotropin [Units/volume] in Serum or Plasma Violetkelsea Can LPN Comment on above: 1.48 Start: 10-09-2022 End: 10-09-2022 Breast Reduction 10/2022 Violet camara LPN Start: 05-09-2022 Vaginal hysterectomy CARLITA PETIT MD Comment on above: WITH BILATERAL SALPI NGECTOMY AND BLADDER LIFT Start: 02-08-2022 End: 02-08-2022 breast reduction Clary Hernandez LP N Start: 02-08-2022 End: 02-08-2022 Total hysterectomy Clary Gunterlabafsaneh ROSENBERG N Comment on above: still has ovaries Start: 11-27-2021 End: 11-27-2021 Depression screening Ashley DunnC Work Phone: Start: 11-27-2021 End: 11-27-2021 Scr dep neg, no plan reqd Ashley Kaushik Jessica THOMAS-C Work Phone: Start: 08-20-2021 Urnls dip stick/tabl et rgnt auto w/o microscopy Cielo Suarez MD Work Phone: Start: 06-17-2021 Urnls dip stick/tabl et rgnt auto w/o microscopy Handy Mcpherson PA-C Work Phone: Start: 05-30-2021 End: 05-30-2021 Microscopic examination of cervical Papanicolaou smear Violet Can LPN Comment on above: Normal. Pap with HPV [facility]; ascus + hpv; normal pap with negative HPV 11/2010; normal pap 10/2011; normal pap 10/2012; 10/2015, 12/15/2018 normal 3yr Start: 01-22-2021 End: 01-27-2021 Ct limited/localized follow up study Ashley Chin PA-C Work Phone: Start: 12-05-2020 End: 12-05-2020 Depression screening Ashley Lopezer PA -C Work Phone: Start: 12-05-2020 End: 12-05-2020 Scr dep neg, no plan reqd Ashley Faulkner Palm er PA-C Work Phone: Start: 12-18-2019 End: 12-18-2019 Depression screening Ashley Faulkner Chin PA -C Work Phone: Start: 12-18-2019 End: 12-18-2019 Scr dep neg, no plan reqd Ashley Faulkner Palm er PA-C Work Phone: Start: 12-15-2018 End: 12-15-2018 Depression screening Ashley Lopezer PA -C Work Phone: Start: 12-15-2018 End: 12-15-2018 Scr dep neg, no plan reqd Ashley Faulkner Palm er PA-C Work Phone: Start: 12-22-2017 End: 12-22-2017 Flu imm no admin doc vaishnavi Ashley Faulkner Palme r PA-C Work Phone: Start: 11-13-2016 End: 11-13-2016 Flu imm no admin doc vaishnavi Ashley Faulkner Palme r PA-C Work Phone: Start: 02-16-2014 End: 02-16-2014 No Known Past Surgical History Violet Can LPN Start: 04-06-2013 End: 04-06-2013 Screening test visual acuity quantitative bilat Ashley Faulkner Chin PA-C Work Phone: Start: 01-07-2011 End: 01-07-2011 Avulsion nail plate partial/complete simple 1 Rosalva Tabor MD Work Phone: Start: 06-09-2010 End: 06-09-2010 Ob care antepartum vag dlvr & Michellechandrakant Taylor CLINICAL DATA MANAGEMENT DIRECTOR Work Phone: Start: 06-06-2010 End: 01-28-2011 Radex foot complete minimum 3 views Andrey Turner MD Work Phone: Start: 06-02-2010 End: 06-02-2010 Ob care antepartum vag dlvr & Michelle Claudia CLINICAL DATA MANAGEMENT DIRECTOR Work Phone: Start: 05-26-2010 End: 05-26-2010 Ob care antepartum vag dlvr & Michelle Claudia CLINICAL DATA MANAGEMENT DIRECTOR Work Phone: Start: 05-19-2010 End: 05-19-2010 Ob care antepartum vag dlvr & Michelle Claudia CLINICAL DATA MANAGEMENT DIRECTOR Work Phone: Start: 05-12-2010 End: 05-12-2010 Ob care antepartum vag dlvr & Michelle Claudia CLINICAL DATA MANAGEMENT DIRECTOR Work Phone: Start: 04-14-2010 End: 04-14-2010 Ob care antepartum vag dlvr & Michelle Claudia CLINICAL DATA MANAGEMENT DIRECTOR Work Phone: Start: 03-24-2010 End: 03-24-2010 Rhophylac injection Michelle Claudia CLINICAL DATA MANAGEMENT DIRECTOR Work Phone: Start: 03-17-2010 End: 03-17-2010 Ob care antepartum vag dlvr & Michelle Claudia CLINICAL DATA MANAGEMENT DIRECTOR Work Phone: Start: 02-20-2010 End: 02-20-2010 Ob care antepartum vag dlvr & Rosalva Tabor MD Work Phone: Start: 01-23-2010 End: 01-23-2010 Us preg uterus after 1st trimest 02/08 gestation Rosalva Tabor MD Work Phone: Start: 01-23-2010 End: 01-23-2010 Ob care antepartum vag dlvr & Michelle Claudia CLINICAL DATA MANAGEMENT DIRECTOR Work Phone: Start: 12-26-2009 End: 12-26-2009 Ob care antepartum vag dlvr & Rosalva Tabor MD Work Phone: Start: 02-08-1999 End: 02-08-1999 wisdom teeth Violet Wagner PN Surgical removal of third molar tooth ALEXANDER REILLY DO vaginal cultures Violet baltazar LPN Comment on above: 02/08/11 ER GC/chlamyd ia neg Plan of Treatment Date Care Activity Detail Author Start: 05-30-2026 HPV TESTING HPV TESTING [facility] Start: 05-30-2026 PAP TESTING PAP TESTING [facility] Start: 11-08-2024 Diagnostic mammograp hy computer-aided detcj uni Mammogram 3D DIAGNOSTIC, right (tomosynthesis) (90422) Start: 08-Nov-2024 Intent [employer] Start: 08-31-2024 Immunoassay tumor antigen quantitative ca 15-3 Cancer Antigen (CA) 15-3 ([id number]) Start: 31-Aug-2024 08:11-04:00 Request [facility]; [employer]. Start: 08-31-2024 Immunoassay tumor antigen quantitative ca 125 Cancer Antigen (CA) 125 (54507) Start: 31-Aug-2024 08:11-04:00 Request [employer].; [employer]. Start: 08-31-2024 Immunoassay tumor antigen quantitative ca 19-9 CA 19-9 ([id number]) Start: 31-Aug-2024 08:10-04:00 Request [employer]. Start: 08-31-2024 Patient encounter procedure Medical; PHYSICAL - AWV. will have labs done prior [facility] Start: 31-Aug-2024 07:20-04:00 BYRON Chin Appointment Request [employer]. Start: 07-05-2024 Lipid panel LIPID PANEL (8 0061) Start: 05-Jul-2024 14:24-04:00 Request [employer].; [employer]. Start: 07-05-2024 Comprehensive metabo lic panel CMP w/ GFR* ([id number]) Start: 05-Jul-2024 14:24-04:00 Request [employer].; [employer]. Start: 07-05-2024 Screening digital breast tomosynthesis bi Mammogram 3D (tomosynthesis), bilateral ([id number]) Start: 05-Jul-2024 Intent [employer].; [employer]. Start: 12-01-2023 Patient encounter procedure Medical; PHYSICAL - AWV. will have labs done at [facility] [employer]. Start: 01-Dec-2023 08:10-04:00 BYRON Chin Appointment Request [employer]. Start: 10-21-2023 Blood count complete auto&auto difrntl wbc CBC, PLATELETS & AUT DIFF (F) ([id number]) Start: 21-Oct-2023 Request [employer].; [employer]. Start: 10-21-2023 Comprehensive metabo lic panel CMP w/ GFR* ([id number]) Start: 21-Oct-2023 Request [employer].; [employer]. Start: 10-21-2023 Lipid panel LIPID PANEL (8 0061) Start: 21-Oct-2023 Request [employer].; [employer]. Start: 05-12-2023 Screening digital breast tomosynthesis bi Mammogram 3D (tomosynthesis), bilateral ([id number]) Start: 12-May-2023 Intent [employer]. Start: 11-26-2022 Provider Instruction s for Treatment [facility] HM Issues, 20-39 female Indication: Annual physical exam Start: 26-Nov-2022 Instruction Type: Provider Instructions for Treatment [employer]. Start: 11-27-2021 Provider Instruction s for Treatment KD HM Issues, 20-39 female Indication: Annual physical exam Start: 27-Nov-2021 Instruction Type: Provider Instructions for Treatment [employer]. Start: 10-09-2021 Influenza vaccination INFLUENZA (#1) [facility] Start: 2012 HPV TESTING HPV TESTING [facility] Start: 03-25-2010 PAP TESTING PAP TESTING [facility] Start: 2001 Urine microalbumin profile DTAP,TDAP,TD (1 - Tdap) [facility] Start: 2000 HEPATITIS C SCREENING HEPATITIS C SC REENING [facility] Start: 2000 HIV SCREENING HIV SCREENING [facility] Start: 1994 Adult depression screening assessment DEPRESSION SCREENING [facility] Bacteria identified in Urine by Culture URINE CULTURE Microbiology Routine Urinary frequency 05/30/2021 11:30 AM EDT [facility] Work Phone: Bacteria identified in Urine by Culture URINE CULTURE Microbiology Routine Abnormal urine findings Ordered: 08/20/2021 [facility] Work Phone: Comment on above: Ordered: 08/20/2021 Sally post-voiding residual urine&/bladder cap US MSR POST-VOID RESID URINE Procedures Routine Dysuria Ordered: 06/17/2021 [facility] Work Phone: Comment on above: Ordered: 06/17/2021 PAP FLUID CERVICAL SCREENING PAP FLUID CERVICAL SCREENING Lab Routine Encounter for gynecological examination (general) (routine) without abnormal findings Screening for cervical cancer Encounter for screening for human papillomavirus (HPV) 05/30/2021 11:30 AM T [facility] Work Phone: Urinalysis complete panel - Urine URINALYSIS, WITH MICROSCOPIC Lab Routine Urinary frequency 05/30/2021 11:30 AM T [facility] Work Phone: Urinalysis complete panel - Urine URINALYSIS, WITH MICROSCOPIC Lab Routine Abnormal urine findings Ordered: 08/20/2021 [facility] Work Phone: Comment on above: Ordered: 08/20/2021 [facility] c [facility] Immunizations Immunization Date Immunization Notes Care Provider Fa [facility] 02-08-2023 tetanus toxoid, reduced diphtheria toxoid, and acellular pertussis vaccine, adsorbed Ashley Chin PA-C Work Phone: [facility].; [facility] 11-12-2020 influenza virus vaccine, unspecified formulation ROSALVA PETIT MD [facility] 11-10-2020 influenza virus vaccine, unspecified formulation ROSALVA PETIT MD [facility] 11-10-2020 influenza, injectabl e, quadrivalent, contains preservative Ashley Chin PA-C Work Phone: [facility].; [facility] 11-08-2020 SARS-CoV-2 mRNA (tozinameran) vaccine ROSALVA PETIT MD [facility] 02-27-2020 SARS-CoV-2 mRNA (tozinameran) vaccine ROSALVA PETIT MD [facility] 02-06-2020 SARS-CoV-2 mRNA (tozinameran) vaccine ROSALVA PETIT MD [facility] 12-15-2018 influenza, injectabl e, quadrivalent, contains preservative Ashley Chin PA-C Work Phone: [facility]; [facility] 11-08-2014 influenza virus vaccine, unspecified formulation ROSALVA PETIT MD [facility] 11-08-2014 influenza, seasonal, injectable Ashley Chin PA-C Work Phone: [facility].; [facility] 11-08-2013 influenza virus vaccine, unspecified formulation ROSALVA PETIT MD [facility] 11-08-2013 influenza, seasonal, injectable Ashley Chin PA-C Work Phone: [facility].; [facility] 09-29-2013 tetanus toxoid, reduced diphtheria toxoid, and acellular pertussis vaccine, adsorbed ROSALVA PETIT MD [facility] Comment on above: ADDENDA: Given at [facility] (Sunday, February 16, 2014) 09-09-2003 tetanus toxoid, reduced diphtheria toxoid, and acellular pertussis vaccine, adsorbed Ashley Chin PA-C Work Phone: [facility].; [facility] 10-19-2001 hepatitis B vaccine, adult dosage ROSALVA PETIT MD [facility] 08-30-2000 hepatitis B vaccine, adult dosage ROSALVA PETIT MD [facility] 07-13-2000 hepatitis B vaccine, adult dosage ROSALVA PETIT MD [facility] 09-29-1994 measles, mumps and rubella virus vaccine Ashley Chin PA-C Work Phone: [facility].; [facility] Work Phone: 09-29-1994 measles/mumps/rubell a virus vaccine ROSALVA PETIT MD [facility] 10-18-1987 diphtheria, tetanus toxoids and acellular pertussis vaccine Ashley Chin PA-C Work Phone: [facility].; [facility] 10-18-1987 poliovirus vaccine, inactivated ROSALVA PETIT MD [facility] 11-27-1986 measles, mumps and rubella virus vaccine Ashley Chin PA-C Work Phone: [facility].; [facility] 11-27-1986 measles/mumps/rubell a virus vaccine ROSALVA PETIT MD [facility] 07-15-1984 diphtheria, tetanus toxoids and acellular pertussis vaccine Ashley Chin PA-C Work Phone: [facility].; [facility] 07-15-1984 poliovirus vaccine, inactivated ROSALVA PETIT MD [facility] 05-01-1983 diphtheria, tetanus toxoids and acellular pertussis vaccine Ashley Chin PA-C Work Phone: [facility].; [facility] 05-01-1983 poliovirus vaccine, inactivated ROSALVA PETIT MD [facility] 02-24-1983 diphtheria, tetanus toxoids and acellular pertussis vaccine Ashley Chin PA-C Work Phone: [facility].; [facility] 02-24-1983 poliovirus vaccine, inactivated ROSALVA PETIT MD [facility] 1982 diphtheria, tetanus toxoids and acellular pertussis vaccine Ashley Chin [facility]-C [facility] 1982 poliovirus vaccine, inactivated ROSALVA PETIT MD [facility] NEGATED: Highlighted row has not occurred!12-15-2018 influenza, injectable, quadrivalent, contains preservative Ashley Chin PA-C Work Phone: [facility] Comment on above: VIS Given: * Influen za - Inactivated (09/14/14) Payers Date Payer Category Payer Self-pay 2021 Unknown [id number] 2021 Unknown [employer] PPO [id number] 2021-Present [phone] [address] [place] [address] PPO [id number] 1982 Unknown [id number] 1982 Unknown [id number] 1982 Unknown [id number] 1982 Unknown [id number] 1982 Unknown [id number] 1982 Unknown [id number] 1982 Unknown [id number] 1982 Unknown [id number] 1982 Unknown [id number] Unknown [id number] Unknown [facility] Social History Date Type Detail Facility Start: 04-30-2022 End: 10-06-2022 Tobacco smoking status NHIS Ex-smoker [facility] Start: 05-30-2021 End: 09-12-2021 Alcohol intake Current drinker of alcohol (finding) [facility] Start: 05-30-2021 History SDOH Alcohol Comment occasional [facility] Start: 1980 Sex Assigned At Not on file C [facility] Start: 06-07-2021 End: 06-19-2021 Exposure to SARS-CoV-2 (event) Not sure [facility] Work Phone: Sex Assigned At Female [facility] Alcohol Use: Alcohol Use: ; Occasional alcohol use. [facility]; [facility] boyfriend (Renamed from Spouse) boyfriend (Renamed from Spouse) [facility]; [facility], [facility] Exercise History: Exercise Histo ry: ; Light. [facility].; [facility], [facility] Tobacco Use: Tobacco Use: ; F ormer smoker. [facility].; [facility], [facility] Occasional alcohol use [facility]; [facility] Work Phone: Never smoked tobacco [facility] [employer] Work Phone: Functional Status Date Assessment Result Facility 10-14-2022 Functional Status Room check performed [facility] 10-14-2022 Functional Status [facility] 10-14-2022 Functional Status [facility] 10-14-2022 Functional Status [facility] 10-13-2022 Functional Status [facility] 10-13-2022 Functional Status [facility] 10-13-2022 Functional Status [facility] 10-13-2022 Functional Status Sah[facility] 10-13-2022 Functional Status [facility] 10-13-2022 Functional Status NPO Status Maintained A [facility] 10-06-2022 Functional Status Sahra [facility] 05-14-2022 Functional Status Awake Sahra [facility] 05-14-2022 Functional Status Sah[facility] 05-14-2022 Functional Status bilateral knee high [facility] 05-14-2022 [facility] Functional Status Sensory Deficits None A [facility] Mental Status Date Assessment Result Facility 10-14-2022 Mental Status Oriented x 4 [facility] 10-13-2022 Mental Status [facility] 10-13-2022 Mental Status [facility] 05-14-2022 Mental Status Orientation Oriented x 4 [facility] 05-14-2022 Mental Status [facility] 05-14-2022 Mental Status [facility] Clinical Notes 05-30-2021 to 10-14-2022 Patient InstructionsMary Vazquez APRN.SHEEP HERDER - 09/12/2021 7:30 AM Taya Suarez MD - 08/20/2021 10:00 AM EDTPatient InstructionsTelephone Encounter - Fred Clemons [facility] - 08/19/2021 9:36 AM EDT Note Date & Type Note Facility 10-14-2022 Note Pathology Report verified by [facility] SUSI HARMON MD Sign out Date: 10/14/2022 13:25 Performing Lab: [facility], [address] [place] [address] Pathology Dept [facility] 10-14-2022 Hospital Discharg e instructions Patient Education 10/14/2022 09:51:35 Breast Reduction, Care After Breast Reduction, Care After This sheet gives you information about how to care for yourself after your procedure. Your health care provider may also give you more specific instructions. If you have problems or questions, contact your health care provider. What can I expect after the procedure? After the procedure, it is common to have: Breast pain, swelling, and bruising. You will be given medicine to help relieve pain. Crusting under the breast. This may be caused by fluid leakage or skin loss. A small amount of skin loss is fairly normal and can be managed with an antibiotic ointment. Follow these instructions at home: Medicines Take aczc-rqn-waldgcl and prescription medicines only as told by your health care provider. Do not take aspirin or NSAIDs because these medicines increase the chances of bleeding. If you were prescribed an antibiotic medicine or ointment, take it or apply it as told by your health care provider. Do not stop using the antibiotic even if you start to feel better. Incision care Follow instructions from your health care provider about how to take care of your incisions. Make sure you: ?Wash your hands with soap and water before you change your bandage (dressing). If soap and water are not available, use hand communications station manager. ?Change your dressing as told by your health care provider. ?Leave stitches (sutures), skin glue, or adhesive strips in place. These skin closures may need to stay in place for 2 weeks or longer. If adhesive strip edges start to loosen and curl up, you may trim the loose edges. Do not remove adhesive strips completely unless your health care provider tells you to do that. Check your incision areas every day for signs of infection. Check for: ?More redness, swelling, or pain. ?More fluid or blood. ?Warmth. ?Pus or a bad smell. Activity For the first 3 days after surgery, rest as much as possible. Get up and walk around at least 3 4 times a day. This helps to prevent blood clots and pneumonia. Do not raise your arms above the level of your breasts for [address] for 24 hours if you were given a medicine to help you relax (sedative). Do not drive or use heavy machinery while taking prescription pain medicine. Do not do physical activity that requires a lot of movement or energy for 1 month after surgery, or as long as told by your health care provider. Ask your health care provider what activities are safe for you. For 3 weeks, or as long as told by your health care provider: ?Do not lift anything that is heavier than 5 lb (2.3 kg) with one arm. ?Do not lift anything that is heavier than 10 lb (4.5 kg) with both arms. Bathing Do not take baths, swim, or use a hot tub until your health care provider approves. Ask your health care provider if you may take showers. You may only be allowed to take sponge baths for bathing. Lifestyle Do not use any products that contain nicotine or tobacco, such as cigarettes and e-cigarettes. If you need help quitting, ask your health care provider. Avoid being in the sun for long periods of time. General instructions Wear compression stockings as told by your health care provider. These stockings help to prevent blood clots and reduce swelling in your legs. If you have tubes draining fluid from your surgical area, care for them as told by your health care provider. Follow instructions from your health care provider about eating or drinking restrictions. Wear a soft bra 24 hours a day for 1 month, or as long as directed. You may remove your bra while bathing. Do not wear underwire bras. Do not sleep on your belly for 4 6 weeks. To prevent or treat constipation while you are taking prescription pain medicine, your health care provider may recommend that you: ?Drink enough fluid to keep your urine clear or pale yellow. ?Take afsj-cld-exyogtz or prescription medicines. ?Eat foods that are high in fiber, such as fresh fruits and vegetables, whole grains, and beans. ?Limit foods that are high in fat and processed sugars, such as fried and sweet foods. Keep all follow-up visits as told by your health care provider. This is important. Contact a health care provider if: You have more redness, swelling, or pain around your incision area or in your breast. You have more fluid or blood coming from your incision area. Your incision or your breast feels warm to the touch. You have pus or a bad smell coming from your incision area. You have nausea or vomiting that lasts for more than 2 days. You have pain that does not get better with medicine. You develop a cough. You have difficulty moving your arm or have pain when moving your arm. You have areas of blood or fluid collecting in your breast. Get help right away if: You have chest pain that is new or feels different from your pain after surgery. You have trouble breathing or have shortness of breath. You develop swelling in your legs or arms. You develop a fever. You have bleeding from your incision or discharge coming from your nipple that will not go away. You have swelling that is worse in one breast than in the other. Summary After your procedure, it is common to have breast pain, swelling, and bruising. You will be given medicine to help relieve pain. Follow instructions from your health care provider about any restrictions and about activities that you should do after the procedure. Follow instructions from your health care provider about how to take care of your incisions. Check your incision areas every day for signs of infection. Report any unusual symptoms or signs of infection to your health care provider. This information is not intended to replace advice given to you by your health care provider. Make sure you discuss any questions you have with your health care provider. Document Released: 09/08/2004 Document Revised: 10/14/2018 Document Reviewed: 10/02/2016 [employer] Patient Education 2020 [email or web address]. Follow Up Care 09/11/2022 09:36:18 With:ROSALVA PETIT MD, [facility], [facility] [place] Address: [facility] [address] [facility] [place] [address]- When:1-2 days Comments:Please call the office to schedule a follow up appointment. [facility] 10-14-2022 Note Discharge Instructions Thank you for allowing [facility] to assist you with your healthcare needs. The following is important discharge information regarding your hospital visit. Your Care Team ASHLEY CHIN What to do next The Following Activity and Diet Have Been Ordered for You No qualifying data available. No qualifying data available. The Following Equipment Has Been Ordered for You No qualifying data available. The Following Treatments Have Been Ordered for You Discharge Labs No qualifying data available. Discharge Radiology No qualifying data available. Other Therapies No qualifying data available. Post Acute Orders No qualifying data available. Someone Will Contact You Regarding These Home Health Referrals No home referrals have been ordered for you. No one will call you. Allergies Keflex (Nausea and vomiting) Medications Please ask your primary doctor or pharmacist before taking any other medication not listed, including over the counter drugs, herbal medications, vitamins and or supplements as they may interact with your home medications. What How Much When Instructions Last Dose Unchanged acetaminophen-hydrocodone ([place] 325- 5 mg oral tablet) 1 tab(s) by mouth Every 4 hours as needed for for pain Unchanged ciprofloxacin (Cipro 250 mg oral tablet) 1 tab(s) by mouth Every 12 hours Duration: 14 Days Unchanged fluticasone nasal (Flonase 50 mcg/ inh nasal spray) 2 spray(s) each nostril Once a day as needed for Allergy symptoms Please take this list to your next doctor s visit. Bring all medications you take, including over the counter medications, herbals and other supplements with you to your doctor s visit. Patients and families are reminded to discard old lists and to update any records with all medication providers or retail pharmacies. Medication Leaflets acetaminophen and hydrocodone (a SEET a MIN oh fen and jai catalina KOE done) Lortab Elixir, Verdrocet What is the most important information I should know about acetaminophen and hydrocodone? MISUSE OF OPIOID MEDICINE CAN CAUSE ADDICTION, OVERDOSE, OR . Keep the medication in a place where others cannot get to it. Taking opioid medicine during may cause life-threatening withdrawal symptoms in the . Fatal side effects can occur if you use opioid medicine with alcohol, or with other drugs that cause drowsiness or slow your breathing. Stop taking this medicine and call your doctor right away if you have skin redness or a rash that spreads and causes blistering and peeling. What is acetaminophen and hydrocodone? Acetaminophen and hydrocodone is a combination medicine used to relieve moderate to severe pain. Acetaminophen and hydrocodone contains an opioid medicine, and may be habit-forming. Acetaminophen and hydrocodone may also be used for purposes not listed in this medication guide. What should I discuss with my healthcare provider before taking acetaminophen and hydrocodone? You should not use this medicine if you are allergic to acetaminophen or hydrocodone, or if you have: severe asthma or breathing problems; or a blockage in your stomach or intestines. Tell your doctor if you have ever had: breathing problems, sleep apnea (breathing stops during sleep); liver disease; a drug or alcohol addiction; kidney disease; a head injury or seizures; urination problems; or problems with your thyroid, pancreas, or gallbladder. If you use opioid medicine while you are , your baby could become dependent on the drug. This can cause life-threatening withdrawal symptoms in the baby after it is born. Babies born dependent on opioids may need medical treatment for several weeks. Ask a doctor before using opioid medicine if you are . Tell your doctor if you notice severe drowsiness or slow breathing in the nursing baby. How should I take acetaminophen and hydrocodone? Follow all directions on your prescription label. Never take this medicine in larger amounts, or for longer than prescribed. An overdose can damage your liver or cause . Tell your doctor if you feel an increased urge to use more of this medicine. Never share this medicine with another person, especially someone with a history of drug abuse or addiction. MISUSE CAN CAUSE ADDICTION, OVERDOSE, OR . Keep the medicine in a place where others cannot get to it. Selling or giving away this medicine is against the law. Measure liquid medicine carefully. Use the dosing syringe provided, or use a medicine dose-measuring device (not a kitchen spoon). If you need surgery or medical tests, tell the doctor ahead of time that you are using this medicine. You should not stop using this medicine suddenly. Follow your doctor's instructions about tapering your dose. Store at room temperature away from moisture and heat. Keep track of your medicine. You should be aware if anyone is using it improperly or without a prescription. Do not keep leftover opioid medication. Just one dose can cause in someone using this medicine accidentally or improperly. Ask your pharmacist where to locate a drug take-back disposal program. If there is no take-back program, flush the unused medicine down the toilet. What happens if I miss a dose? Since this medicine is used for pain, you are not likely to miss a dose. Skip any missed dose if it is almost time for your next dose. Do not use two doses at one time. What happens if I overdose? Seek emergency medical attention or call the Poison Help line at . An overdose of this medicine can be fatal, especially in a child or other person using the medicine without a prescription. Overdose symptoms may include nausea, vomiting, sweating, severe drowsiness, pinpoint pupils, slow breathing, or no breathing. Your doctor may recommend you get naloxone (a medicine to reverse an opioid overdose) and keep it with you at all times. A person caring for you can give the naloxone if you stop breathing or don't wake up. Your caregiver must still get emergency medical help and may need to perform CPR (cardiopulmonary resuscitation) on you while waiting for help to arrive. Anyone can buy naloxone from a pharmacy or local health department. Make sure any person caring for you knows where you keep naloxone and how to use it. What should I avoid while taking acetaminophen and hydrocodone? Avoid driving or operating machinery until you know how this medicine will affect you. Dizziness or drowsiness can cause falls, accidents, or severe injuries. Do not drink alcohol. Dangerous side effects or could occur. Ask a doctor or pharmacist before using any other medicine that may contain acetaminophen (sometimes abbreviated as APAP). Taking certain medications together can lead to a fatal overdose. What are the possible side effects of acetaminophen and hydrocodone? Get emergency medical help if you have signs of an allergic reaction: hives; difficulty breathing; swelling of your face, lips, tongue, or throat. Opioid medicine can slow or stop your breathing, and may occur. A person caring for you should give naloxone and/or seek emergency medical attention if you have slow breathing with long pauses, blue colored lips, or if you are hard to wake up. In rare cases, acetaminophen may cause a severe skin reaction that can be fatal. This could occur even if you have taken acetaminophen in the past and had no reaction. Stop taking this medicine and call your doctor right away if you have skin redness or a rash that spreads and causes blistering and peeling. Call your doctor at once if you have: noisy breathing, sighing, shallow breathing, breathing that stops; a light-headed feeling, like you might pass out; liver problems--nausea, upper stomach pain, tiredness, loss of appetite, dark urine, germain-colored stools, jaundice (yellowing of the skin or eyes); low cortisol levels-- nausea, vomiting, loss of appetite, dizziness, worsening tiredness or weakness; o high levels of serotonin in the body--agitation, hallucinations, fever, sweating, shivering, fast heart rate, muscle stiffness, twitching, loss of coordination, nausea, vomiting, diarrhea. Serious breathing problems may be more likely in older adults and in those who are debilitated or have wasting syndrome or chronic breathing disorders. Common side effects include: dizziness, drowsiness, feeling tired; nausea, vomiting, stomach pain; constipation; or headache. This is not a complete list of side effects and others may occur. Call your doctor for medical advice about side effects. You may report side effects to FDA at 5-584-VRM-1915. What other drugs will affect acetaminophen and hydrocodone? You may have breathing problems or withdrawal symptoms if you start or stop taking certain other medicines. Tell your doctor if you also use an antibiotic, antifungal medication, heart or blood pressure medication, seizure medication, or medicine to treat HIV or hepatitis C. Opioid medication can interact with many other drugs and cause dangerous side effects or . Be sure your doctor knows if you also use: cold or allergy medicines, bronchodilator asthma/COPD medication, or a diuretic ('water pill'); medicines for motion sickness, irritable bowel syndrome, or overactive bladder; other opioids--opioid pain medicine or prescription cough medicine; a sedative like Valium--diazepam, alprazolam, lorazepam, Xanax, Klonopin, Versed, and others; drugs that make you sleepy or slow your breathing--a sleeping pill, muscle relaxer, medicine to treat mood disorders or mental illness; drugs that affect serotonin levels in your body--a stimulant, or medicine for depression, Parkinson's disease, migraine headaches, serious infections, or nausea and vomiting. This list is not complete. Other drugs may affect acetaminophen and hydrocodone, including prescription and [id number] medicines, vitamins, and herbal products. Not all possible interactions are listed here. Where can I get more information? Your doctor or pharmacist can provide more information about acetaminophen and hydrocodone. Remember, keep this and all other medicines out of the reach of children, never share your medicines with others, and use this medication only for the indication prescribed. Every effort has been made to ensure that the information provided by [employer]. [employer]') is accurate, up-to-date, and complete, but no guarantee is made to that effect. Drug information contained herein may be time sensitive. [employer] information has been compiled for use by healthcare practitioners and consumers in the [place] and therefore [employer] does not warrant that uses outside of the [place] are appropriate, unless specifically indicated otherwise. [employer]'s drug information does not endorse drugs, diagnose patients or recommend therapy. [facility] drug information is an informational resource designed to assist licensed healthcare practitioners in caring for their patients and/or to serve consumers viewing this service as a supplement to, and not a substitute for, the expertise, skill, knowledge and judgment of healthcare practitioners. The absence of a warning for a given drug or drug combination in no way should be construed to indicate that the drug or drug combination is safe, effective or appropriate for any given patient. [facility] does not assume any responsibility for any aspect of healthcare administered with the aid of information [facility] provides. The information contained herein is not intended to cover all possible uses, directions, precautions, warnings, drug interactions, allergic reactions, or adverse effects. If you have questions about the drugs you are taking, check with your doctor, nurse or pharmacist. Copyright 8535-3260 [facility] [place]. Version: 19.. Revision Date: 09/28/2022. ciprofloxacin (oral) (SIP reynaldo FLOX a sin) Cipro, Proquin XR What is the most important information I should know about ciprofloxacin? Ciprofloxacin can cause serious side effects, including tendon problems, nerve damage, serious mood or behavior changes, or low blood sugar. Stop using this medicine and call your doctor at once if you have: headache, hunger, irritability, numbness, tingling, burning pain, confusion, agitation, paranoia, problems with memory or concentration, thoughts of suicide, or sudden pain or movement problems in any of your joints. In rare cases, ciprofloxacin may cause damage to your aorta, which could lead to dangerous bleeding or . Get emergency medical help if you have severe and constant pain in your chest, stomach, or back. What is ciprofloxacin? Ciprofloxacin is a fluoroquinolone (sykp-r-UKOC-o-lone) antibiotic, it is used to treat different types of bacterial infections. It is also used to treat people who have been exposed to anthrax or certain types of plague. Ciprofloxacin extended-release is only approved for use in adults. Fluoroquinolone antibiotics can cause serious or disabling side effects that may not be reversible. Ciprofloxacin should be used only for infections that cannot be treated with a safer antibiotic. Ciprofloxacin may also be used for purposes not listed in this medication guide. What should I discuss with my healthcare provider before taking ciprofloxacin? You should not use ciprofloxacin if you are allergic to it, or if: you also take tizanidine; or you are allergic to other fluoroquinolones (levofloxacin, moxifloxacin, norfloxacin, ofloxacin). Ciprofloxacin may cause swelling or tearing of a tendon (the fiber that connects bones to muscles in the body), especially in the Achilles' tendon of the heel. This can happen during treatment or several months after you stop taking ciprofloxacin. Tendon problems may be more likely in children and older adults, or people who use steroid medicine or have had an organ transplant. Tell your doctor if you have ever had: arthritis or problems with your tendons, bones or joints (especially in children); diabetes, low blood sugar; nerve problems; an aneurysm or blood circulation problems; heart problems, or a heart attack; muscle weakness, myasthenia gravis; liver or kidney disease; a seizure, head injury, or brain tumor; trouble swallowing pills; long QT syndrome (in you or a family member); or low levels of potassium in your blood (hypokalemia). Do not give this medicine to a child without medical advice. It is not known whether this medicine will harm an unborn baby. Tell your doctor if you are . You should not breastfeed while taking ciprofloxacin and for 2 days after your last dose. Ask your doctor about if you take ciprofloxacin for anthrax exposure. How should I take ciprofloxacin? Follow all directions on your prescription label and read all medication guides or instruction sheets. Use the medicine exactly as directed. Take ciprofloxacin at the same time each day, with or without food. Shake the oral suspension (liquid) for 15 seconds before you measure a dose. Use the dosing syringe provided, or use a medicine dose-measuring device (not a kitchen spoon). Do not give ciprofloxacin oral suspension through a feeding tube. Swallow the extended-release tablet whole and do not crush, chew, or break it. Drink plenty of liquids while you are taking ciprofloxacin. Use this medicine for the full prescribed length of time, even if your symptoms quickly improve. Skipping doses can increase your risk of infection that is resistant to medication. Ciprofloxacin will not treat a viral infection such as the flu or a common cold. Do not share ciprofloxacin with another person. Store at room temperature away from moisture and heat. Do not allow the liquid medicine to freeze. Throw away any unused liquid after 14 days. What happens if I miss a dose? If you take regular tablets or oral suspension: Take the medicine as soon as you can, but skip the missed dose if your next dose is due in less than 6 hours. If you take extended-release tablets: Take the medicine as soon as you can, but skip the missed dose if your next dose is due in less than 8 hours. Do not take two doses at one time. What happens if I overdose? Seek emergency medical attention or call the Poison Help line at . What should I avoid while taking ciprofloxacin? Do not take ciprofloxacin with dairy products such as milk or yogurt, or with calcium-fortified juice. You may eat or drink these products with your meals, but do not use them alone when taking ciprofloxacin. Antibiotic medicines can cause diarrhea, which may be a sign of a new infection. If you have diarrhea that is watery or bloody, call your doctor before using anti-diarrhea medicine. Ciprofloxacin could make you sunburn more easily. Avoid sunlight or tanning beds. Wear protective clothing and use sunscreen (SPF 30 or higher) when you are outdoors. Tell your doctor if you have severe burning, redness, itching, rash, or swelling after being in the sun. Avoid driving or hazardous activity until you know how this medicine will affect you. Your reactions could be impaired. What are the possible side effects of ciprofloxacin? Get emergency medical help if you have signs of an allergic reaction (hives, difficult breathing, swelling in your face or throat) or a severe skin reaction (fever, sore throat, burning in your eyes, skin pain, red or purple skin rash that spreads and causes blistering and peeling). Ciprofloxacin can cause serious side effects, including tendon problems, damage to your nerves (which may be permanent), serious mood or behavior changes (after just one dose), or low blood sugar (which can lead to coma). Stop taking this medicine and call your doctor at once if you have: low blood sugar--headache, hunger, irritability, dizziness, nausea, fast heart rate, or feeling shaky; nerve damage symptoms--numbness, tingling, burning pain in your hands, arms, legs, or feet: serious mood or behavior changes--nervousness, confusion, agitation, paranoia, hallucinations, memory problems, trouble concentrating, thoughts of suicide; or signs of tendon rupture--sudden pain, swelling, bruising, tenderness, stiffness, movement problems, or a snapping or popping sound in any of your joints (rest the joint until you receive medical care or instructions). In rare cases, ciprofloxacin may cause damage to your aorta, the main blood artery of the body. This could lead to dangerous bleeding or . Get emergency medical help if you have severe and constant pain in your chest, stomach, or back. Also, stop using ciprofloxacin and call your doctor at once if you have: severe stomach pain, diarrhea that is watery or bloody; fast or pounding heartbeats, fluttering in your chest, shortness of breath, and sudden dizziness (like you might pass out); any skin rash, no matter how mild; muscle weakness, breathing problems; little or no urination; jaundice (yellowing of the skin or eyes); or increased pressure inside the skull--severe headaches, ringing in your ears, dizziness, nausea, vision problems, pain behind your eyes. Common side effects may include: nausea, vomiting, diarrhea, stomach pain; headache; or abnormal liver function tests. This is not a complete list of side effects and others may occur. Call your doctor for medical advice about side effects. You may report side effects to FDA at 5-490-DCV-1693. What other drugs will affect ciprofloxacin? Some medicines can make ciprofloxacin much less effective when taken at the same time. If you take any of the following medicines, take your ciprofloxacin dose 2 hours before or 6 hours after you take the other medicine. the ulcer medicine sucralfate, or antacids that contain calcium, magnesium, or aluminum (such as Maalox, Milk of Magnesia, Mylanta, Pepcid Complete, Rolaids, Tums, and others); didanosine (Videx) powder or chewable tablets; vitamin or mineral supplements that contain calcium, iron, magnesium, or zinc. Tell your doctor about all your other medicines, especially: clozapine, cyclosporine, methotrexate, phenytoin, probenecid, ropinirole, sildenafil, or theophylline; a blood thinner (warfarin, Coumadin, Jantoven); heart medication or a diuretic or 'water pill'; oral diabetes medicine; products that contain caffeine; medicine to treat depression or mental illness; steroid medicine (such as prednisone); o NSAIDs (nonsteroidal anti-inflammatory drugs)--aspirin, ibuprofen (Advil, Motrin), naproxen (Aleve), celecoxib, diclofenac, indomethacin, meloxicam, and others; This list is not complete. Other drugs may affect ciprofloxacin, including prescription and dyti-fed-kifooox medicines, vitamins, and herbal products. Not all possible drug interactions are listed here. Where can I get more information? Your pharmacist can provide more information about ciprofloxacin. Remember, keep this and all other medicines out of the reach of children, never share your medicines with others, and use this medication only for the indication prescribed. Every effort has been made to ensure that the information provided by [employer] is accurate, up-to-date, and complete, but no guarantee is made to that effect. Drug information contained herein may be time sensitive. [employer] information has been compiled for use by healthcare practitioners and consumers in the [place] and therefore [employer] does not warrant that uses outside of the [place] are appropriate, unless specifically indicated otherwise. [employer] drug information does not endorse drugs, diagnose patients or recommend therapy. [employer] drug information is an informational resource designed to assist licensed healthcare practitioners in caring for their patients and/or to serve consumers viewing this service as a supplement to, and not a substitute for, the expertise, skill, knowledge and judgment of healthcare practitioners. The absence of a warning for a given drug or drug combination in no way should be construed to indicate that the drug or drug combination is safe, effective or appropriate for any given patient. [employer] does not assume any responsibility for any aspect of healthcare administered with the aid of information [employer] provides. The information contained herein is not intended to cover all possible uses, directions, precautions, warnings, drug interactions, allergic reactions, or adverse effects. If you have questions about the drugs you are taking, check with your doctor, nurse or pharmacist. Copyright 7367-2607 [employer]. Version: 23.01. Revision Date: 08/23/2019. Education Materials Breast Reduction, Care After This sheet gives you information about how to care for yourself after your procedure. Your health care provider may also give you more specific instructions. If you have problems or questions, contact your health care provider. What can I expect after the procedure? After the procedure, it is common to have: Breast pain, swelling, and bruising. You will be given medicine to help relieve pain. Crusting under the breast. This may be caused by fluid leakage or skin loss. A small amount of skin loss is fairly normal and can be managed with an antibiotic ointment. Follow these instructions at home: Medicines Take [id number] and prescription medicines only as told by your health care provider. Do not take aspirin or NSAIDs because these medicines increase the chances of bleeding. If you were prescribed an antibiotic medicine or ointment, take it or apply it as told by your health care provider. Do not stop using the antibiotic even if you start to feel better. Incision care Follow instructions from your health care provider about how to take care of your incisions. Make sure you: ? Wash your hands with soap and water before you change your bandage (dressing). If soap and water are not available, use hand communications station manager. ? Change your dressing as told by your health care provider. ? Leave stitches (sutures), skin glue, or adhesive strips in place. These skin closures may need to stay in place for 2 weeks or longer. If adhesive strip edges start to loosen and curl up, you may trim the loose edges. Do not remove adhesive strips completely unless your health care provider tells you to do that. Check your incision areas every day for signs of infection. Check for: ? More redness, swelling, or pain. ? More fluid or blood. ? Warmth. ? Pus or a bad smell. Activity For the first 3 days after surgery, rest as much as possible. Get up and walk around at least 3 4 times a day. This helps to prevent blood clots and pneumonia. Do not raise your arms above the level of your breasts for [address] for 24 hours if you were given a medicine to help you relax (sedative). Do not drive or use heavy machinery while taking prescription pain medicine. Do not do physical activity that requires a lot of movement or energy for 1 month after surgery, or as long as told by your health care provider. Ask your health care provider what activities are safe for you. For 3 weeks, or as long as told by your health care provider: ? Do not lift anything that is heavier than 5 lb (2.3 kg) with one arm. ? Do not lift anything that is heavier than 10 lb (4.5 kg) with both arms. Bathing Do not take baths, swim, or use a hot tub until your health care provider approves. Ask your health care provider if you may take showers. You may only be allowed to take sponge baths for bathing. Lifestyle Do not use any products that contain nicotine or tobacco, such as cigarettes and e-cigarettes. If you need help quitting, ask your health care provider. Avoid being in the sun for long periods of time. General instructions Wear compression stockings as told by your health care provider. These stockings help to prevent blood clots and reduce swelling in your legs. If you have tubes draining fluid from your surgical area, care for them as told by your health care provider. Follow instructions from your health care provider about eating or drinking restrictions. Wear a soft bra 24 hours a day for 1 month, or as long as directed. You may remove your bra while bathing. Do not wear underwire bras. Do not sleep on your belly for 4 6 weeks. To prevent or treat constipation while you are taking prescription pain medicine, your health care provider may recommend that you: ? Drink enough fluid to keep your urine clear or pale yellow. ? Take gogd-lbi-luuvmae or prescription medicines. ? Eat foods that are high in fiber, such as fresh fruits and vegetables, whole grains, and beans. ? Limit foods that are high in fat and processed sugars, such as fried and sweet foods. Keep all follow-up visits as told by your health care provider. This is important. Contact a health care provider if: You have more redness, swelling, or pain around your incision area or in your breast. You have more fluid or blood coming from your incision area. Your incision or your breast feels warm to the touch. You have pus or a bad smell coming from your incision area. You have nausea or vomiting that lasts for more than 2 days. You have pain that does not get better with medicine. You develop a cough. You have difficulty moving your arm or have pain when moving your arm. You have areas of blood or fluid collecting in your breast. Get help right away if: You have chest pain that is new or feels different from your pain after surgery. You have trouble breathing or have shortness of breath. You develop swelling in your legs or arms. You develop a fever. You have bleeding from your incision or discharge coming from your nipple that will not go away. You have swelling that is worse in one breast than in the other. Summary After your procedure, it is common to have breast pain, swelling, and bruising. You will be given medicine to help relieve pain. Follow instructions from your health care provider about any restrictions and about activities that you should do after the procedure. Follow instructions from your health care provider about how to take care of your incisions. Check your incision areas every day for signs of infection. Report any unusual symptoms or signs of infection to your health care provider. This information is not intended to replace advice given to you by your health care provider. Make sure you discuss any questions you have with your health care provider. Document Released: 09/08/2004 Document Revised: 10/14/2018 Document Reviewed: 10/02/2016 [employer] Patient Education 2020 [email or web address]. Additional Information VACCINATE! IT SAVES LIVES! Members of the community who have not yet received the COVID-19 vaccine and would like to receive it can visit one of [facility] vaccine clinics. There are many vaccine clinic locations within the [facility]. For locations and available times, please visit https://gettheshot.coronavirus.o alo.gov/. It is important to note that some COVID mobile vaccine clinics are held outdoors and may be canceled in rainy or stormy conditions. To learn more about pediatric vaccinations (ages 5-11), we invite you to visit the [facility] webpage. https://www.[email or web address].org/p ages/6241-Zttfk-Qituexgvsjp-Freq [email or web address]-Rpmfgdxyu.html To learn more about the COVID-19 vaccine, we invite you to visit the CDC website for a list of frequently asked questions.https://www.cdc.gov/co ronavirus/2019-ncov/vaccines/faq .html [employer] Patient Portal Access Instructions: Stay connected with your healthcare team and access your personal medical information anytime with the [employer] Patient Portal. Please follow the directions below to create your [employer] account: 1.Access the email account you provided upon registration to the hospital/physician office.2.Look for an invitation email from [facility].3.Open the email and access the invitation link: Accept Invitation to [employer].4.Fill in the required lerner to create your account. To access your account, visit [employer]. Click the blue button labeled Access Patient Portal and then log in with the username and password that you created in the steps above. You will be able to view your test results, lab results, a summary of your visits, upcoming appointments and more. There is also a convenient messaging option where you can send secure messages to your provider. In addition, you will have the ability to download any documents or summaries to your computer and/or send the information securely to a physician. Remember that your healthcare information is confidential, so carefully consider who you will allow to register on the [email or web address] Patient Portal for access to your information. You can also access the [employer] Patient Portal on the [employer] [employer] justice. Simply click on Patient Portal and then log into your account. If you would like to receive a full copy of your medical records, please contact the [facility] Medical Records Department by calling [phone], Wednesday through Wednesday between 8 a.m. and 4:30 p.m. HOW TO SAFELY DISPOSE OF PRESCRIPTION MEDICATIONS Please use one of the following methods to safely dispose of your unused medications. 1.Use a drug disposal kit: the drug disposal pouch allows you to safely discard your old and unused drugs. Ask your nurse to give you one when you are discharged.2.Visit a local take-back location: Many local pharmacies and police departments have programs that collect old and unwanted prescription drugs. Call your local pharmacy or go to http://[employer].Neighbortree.com/4O0Gh4k to find one close to you.3.Make use of household items: Use cat litter or old coffee grounds to dispose medications if other options are not available. Mix your drugs with these household products, seal them in an airtight container and throw it into the garbage. Call [facility]: [phone] to be sure your drugs can be disposed of in this way. Some medicines may require a different approach.4.Never flush your medications down the toilet. IF YOU HAVE BEEN PRESCRIBED AN OPIOID FOR PAIN If you have been prescribed an opioid (such as hydrocodone, oxycodone or morphine), it is critical to understand the possible side effects and risks of opioid pain medications. Even when taken as directed, opioids can have several side effects including: Tolerance, meaning you might need to take more of a medication for the same pain relief. Nausea, vomiting and/or constipation. Sleepiness, dizziness, dry mouth, confusion, depression or itching. Physical dependence, meaning you have withdrawal symptoms when a medication is stopped, can develop within a few days. KNOW YOUR RESPONSIBILITIES It is important to know exactly how much and how often to take the opioid pain medications you are prescribed. Never take opioids in higher amounts or more often than prescribed. Do not combine opioids with alcohol or other drugs that cause drowsiness, such as benzodiazepines, also known as benzos, including diazepam and alprazolam, muscle relaxants or sleep aids. Never sell or share prescription opioids. This is illegal. Store opioids in a secure place and out of reach of others (including children, family, friends and visitors). The last page of this document has been signed and retained as a CHART COPY. Signatures Patient Education Materials Breast Reduction, Care After Medication Leaflets [place] 325 - 5 mg oral tablet, Cipro My discharge plan and instructions have been reviewed and explained to me and I,BUCK LONG understand my current condition and have read and understand these discharge instructions. I have received a written copy of the plan/instructions. If I have questions, I am aware that I should contact my doctor. 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: Date/Time: Relationship to Patient: Witness Name/Signature: Date/Time: [facility] 10-14-2022 Note Pathology Report verified by [facility] SUSI HARMON MD Sign out Date: 10/14/2022 13:25 Performing Lab: [facility], [place] [place] [id number] [facility] Pathology Dept [facility] 10-13-2022 Note Pathology Report verified by [facility] SUSI HARMON MD Sign out Date: 10/14/2022 13:25 Performing Lab: [address] Pathology Dept [facility] 10-13-2022 Note Pathology Report verified by [facility] SUSI HARMON MD Sign out Date: 10/14/2022 13:25 Performing Lab: [address] Pathology Dept [facility] 10-13-2022 Note Pathology Report verified by [facility] SUSI HARMON MD Sign out Date: 10/14/2022 13:25 Performing Lab: [address] Pathology Dept [facility] 10-13-2022 Note Pathology Report verified by [facility] SUSI HARMON MD Sign out Date: 10/14/2022 13:25 Performing Lab: [address] Pathology Dept [facility] 10-13-2022 Note Pathology Report verified by [facility] SUSI HARMON MD Sign out Date: 10/14/2022 13:25 Performing Lab: [address] Pathology Dept [facility] 10-13-2022 Anesthesiology Consult note Patient: BUCK LONG Age: 41 years Sex: Female : 1980 Associated Diagnoses: None Author: ARLEY WHITT MD Postoperative Information Post Operative Info: Post op day: Post Anesthesia Care Unit. Patient location: PACU. Assessment Postanesthesia assessment Vitals: Vital signs from flowsheet : Vital Signs 10/13/2022 12:05 EDT Heart Rate Monitored 65 bpm Respiratory Rate 18 br/min Systolic Blood Pressure Non-Invasive 131 mmHg Diastolic Blood Pressure Non-Invasive 72 mmHg Mean Arterial Pressure (NBP) 92 mmHg 10/13/2022 11:50 EDT Heart Rate Monitored 72 bpm Respiratory Rate 18 br/min Systolic Blood Pressure Non-Invasive 125 mmHg Diastolic Blood Pressure Non-Invasive 82 mmHg Mean Arterial Pressure (NBP) 94 mmHg 10/13/2022 11:35 EDT Heart Rate Monitored 62 bpm Respiratory Rate 18 br/min Systolic Blood Pressure Non-Invasive 133 mmHg Diastolic Blood Pressure Non-Invasive 82 mmHg Mean Arterial Pressure (NBP) 96 mmHg 10/13/2022 11:20 EDT Heart Rate Monitored 72 bpm Respiratory Rate 18 br/min Systolic Blood Pressure Non-Invasive 126 mmHg Diastolic Blood Pressure Non-Invasive 77 mmHg Mean Arterial Pressure (NBP) 91 mmHg 10/13/2022 11:05 EDT Heart Rate Monitored 69 bpm Respiratory Rate 16 br/min Systolic Blood Pressure Non-Invasive 140 mmHg Diastolic Blood Pressure Non-Invasive 81 mmHg Mean Arterial Pressure (NBP) 98 mmHg 10/13/2022 10:50 EDT Heart Rate Monitored 73 bpm Respiratory Rate 16 br/min Systolic Blood Pressure Non-Invasive 126 mmHg Diastolic Blood Pressure Non-Invasive 79 mmHg Mean Arterial Pressure (NBP) 94 mmHg 10/13/2022 10:35 EDT Temperature Temporal Artery 36.8 DegC Heart Rate Monitored 94 bpm Respiratory Rate 16 br/min Respiratory Rate - Anes 0 br/min br/min Systolic Blood Pressure Non-Invasive 117 mmHg Diastolic Blood Pressure Non-Invasive 70 mmHg Mean Arterial Pressure (NBP) 83 mmHg 10/13/2022 10:30 EDT Respiratory Rate - Anes 0 br/min br/min 10/13/2022 10:25 EDT Heart Rate Monitored 95 bpm bpm Respiratory Rate - Anes 9 br/min br/min 10/13/2022 10:23 EDT Systolic Blood Pressure Non-Invasive 120 mmHg mmHg Diastolic Blood Pressure Non-Invasive 102 mmHg mmHg 10/13/2022 10:20 EDT Temperature (Route Not Specified) 36.02 DegC DegC Heart Rate Monitored 83 bpm bpm Respiratory Rate - Anes 12 br/min br/min 10/13/2022 10:19 EDT Systolic Blood Pressure Non-Invasive 122 mmHg mmHg Diastolic Blood Pressure Non-Invasive 97 mmHg mmHg 10/13/2022 10:16 EDT Systolic Blood Pressure Non-Invasive 105 mmHg mmHg Diastolic Blood Pressure Non-Invasive 94 mmHg mmHg 10/13/2022 10:15 EDT Temperature (Route Not Specified) 35.98 DegC DegC Heart Rate Monitored 73 bpm bpm Respiratory Rate - Anes 13 br/min br/min 10/13/2022 10:13 EDT Systolic Blood Pressure Non-Invasive 117 mmHg mmHg Diastolic Blood Pressure Non-Invasive 75 mmHg mmHg 10/13/2022 10:10 EDT Temperature (Route Not Specified) 35.97 DegC DegC Heart Rate Monitored 72 bpm bpm Respiratory Rate - Anes 11 br/min br/min Systolic Blood Pressure Non-Invasive 105 mmHg mmHg Diastolic Blood Pressure Non-Invasive 72 mmHg mmHg 10/13/2022 10:07 EDT Systolic Blood Pressure Non-Invasive 98 mmHg mmHg Diastolic Blood Pressure Non-Invasive 68 mmHg mmHg 10/13/2022 10:05 EDT Temperature (Route Not Specified) 35.96 DegC DegC Heart Rate Monitored 74 bpm bpm Respiratory Rate - Anes 11 br/min br/min 10/13/2022 10:04 EDT Systolic Blood Pressure Non-Invasive 102 mmHg mmHg Diastolic Blood Pressure Non-Invasive 70 mmHg mmHg 10/13/2022 10:01 EDT Systolic Blood Pressure Non-Invasive 99 mmHg mmHg Diastolic Blood Pressure Non-Invasive 68 mmHg mmHg 10/13/2022 10:00 EDT Temperature (Route Not Specified) 35.97 DegC DegC Heart Rate Monitored 74 bpm bpm Respiratory Rate - Anes 12 br/min br/min 10/13/2022 9:58 EDT Systolic Blood Pressure Non-Invasive 102 mmHg mmHg Diastolic Blood Pressure Non-Invasive 68 mmHg mmHg 10/13/2022 9:55 EDT Temperature (Route Not Specified) 35.95 DegC DegC Heart Rate Monitored 74 bpm bpm Respiratory Rate - Anes 11 br/min br/min Systolic Blood Pressure Non-Invasive 99 mmHg mmHg Diastolic Blood Pressure Non-Invasive 73 mmHg mmHg 10/13/2022 9:53 EDT Systolic Blood Pressure Non-Invasive 98 mmHg mmHg Diastolic Blood Pressure Non-Invasive 75 mmHg mmHg 10/13/2022 9:50 EDT Temperature (Route Not Specified) 35.95 DegC DegC Heart Rate Monitored 80 bpm bpm Respiratory Rate - Anes 15 br/min br/min 10/13/2022 9:49 EDT Systolic Blood Pressure Non-Invasive 101 mmHg mmHg Diastolic Blood Pressure Non-Invasive 70 mmHg mmHg 10/13/2022 9:46 EDT Systolic Blood Pressure Non-Invasive 98 mmHg mmHg Diastolic Blood Pressure Non-Invasive 73 mmHg mmHg 10/13/2022 9:45 EDT Temperature (Route Not Specified) 35.94 DegC DegC Heart Rate Monitored 73 bpm bpm Respiratory Rate - Anes 13 br/min br/min 10/13/2022 9:43 EDT Systolic Blood Pressure Non-Invasive 100 mmHg mmHg Diastolic Blood Pressure Non-Invasive 69 mmHg mmHg 10/13/2022 9:40 EDT Temperature (Route Not Specified) 35.92 DegC DegC Heart Rate Monitored 69 bpm bpm Respiratory Rate - Anes 11 br/min br/min Systolic Blood Pressure Non-Invasive 96 mmHg mmHg Diastolic Blood Pressure Non-Invasive 67 mmHg mmHg 10/13/2022 9:37 EDT Systolic Blood Pressure Non-Invasive 114 mmHg mmHg Diastolic Blood Pressure Non-Invasive 70 mmHg mmHg 10/13/2022 9:35 EDT Temperature (Route Not Specified) 35.91 DegC DegC Heart Rate Monitored 68 bpm bpm Respiratory Rate - Anes 11 br/min br/min 10/13/2022 9:34 EDT Systolic Blood Pressure Non-Invasive 103 mmHg mmHg Diastolic Blood Pressure Non-Invasive 68 mmHg mmHg 10/13/2022 9:31 EDT Systolic Blood Pressure Non-Invasive 99 mmHg mmHg Diastolic Blood Pressure Non-Invasive 65 mmHg mmHg 10/13/2022 9:30 EDT Temperature (Route Not Specified) 35.97 DegC DegC Heart Rate Monitored 68 bpm bpm Respiratory Rate - Anes 10 br/min br/min 10/13/2022 9:28 EDT Systolic Blood Pressure Non-Invasive 105 mmHg mmHg Diastolic Blood Pressure Non-Invasive 70 mmHg mmHg 10/13/2022 9:25 EDT Temperature (Route Not Specified) 35.95 DegC DegC Heart Rate Monitored 74 bpm bpm Respiratory Rate - Anes 9 br/min br/min Systolic Blood Pressure Non-Invasive 111 mmHg mmHg Diastolic Blood Pressure Non-Invasive 74 mmHg mmHg 10/13/2022 9:22 EDT Systolic Blood Pressure Non-Invasive 100 mmHg mmHg Diastolic Blood Pressure Non-Invasive 74 mmHg mmHg 10/13/2022 9:20 EDT Temperature (Route Not Specified) 35.95 DegC DegC Heart Rate Monitored 86 bpm bpm Respiratory Rate - Anes 12 br/min br/min 10/13/2022 9:19 EDT Systolic Blood Pressure Non-Invasive 114 mmHg mmHg Diastolic Blood Pressure Non-Invasive 85 mmHg mmHg 10/13/2022 9:16 EDT Systolic Blood Pressure Non-Invasive 106 mmHg mmHg Diastolic Blood Pressure Non-Invasive 78 mmHg mmHg 10/13/2022 9:15 EDT Temperature (Route Not Specified) 35.92 DegC DegC Heart Rate Monitored 81 bpm bpm Respiratory Rate - Anes 13 br/min br/min 10/13/2022 9:13 EDT Systolic Blood Pressure Non-Invasive 118 mmHg mmHg Diastolic Blood Pressure Non-Invasive 79 mmHg mmHg 10/13/2022 9:10 EDT Temperature (Route Not Specified) 35.95 DegC DegC Heart Rate Monitored 75 bpm bpm Respiratory Rate - Anes 15 br/min br/min Systolic Blood Pressure Non-Invasive 99 mmHg mmHg Diastolic Blood Pressure Non-Invasive 71 mmHg mmHg 10/13/2022 9:07 EDT Systolic Blood Pressure Non-Invasive 101 mmHg mmHg Diastolic Blood Pressure Non-Invasive 74 mmHg mmHg 10/13/2022 9:05 EDT Temperature (Route Not Specified) 35.94 DegC DegC Heart Rate Monitored 77 bpm bpm Respiratory Rate - Anes 14 br/min br/min 10/13/2022 9:04 EDT Systolic Blood Pressure Non-Invasive 105 mmHg mmHg Diastolic Blood Pressure Non-Invasive 74 mmHg mmHg 10/13/2022 9:01 EDT Systolic Blood Pressure Non-Invasive 104 mmHg mmHg Diastolic Blood Pressure Non-Invasive 76 mmHg mmHg 10/13/2022 9:00 EDT Temperature (Route Not Specified) 35.95 DegC DegC Heart Rate Monitored 77 bpm bpm Respiratory Rate - Anes 11 br/min br/min 10/13/2022 8:58 EDT Systolic Blood Pressure Non-Invasive 107 mmHg mmHg Diastolic Blood Pressure Non-Invasive 74 mmHg mmHg 10/13/2022 8:55 EDT Temperature (Route Not Specified) 35.93 DegC DegC Heart Rate Monitored 72 bpm bpm Respiratory Rate - Anes 10 br/min br/min Systolic Blood Pressure Non-Invasive 102 mmHg mmHg Diastolic Blood Pressure Non-Invasive 68 mmHg mmHg 10/13/2022 8:52 EDT Systolic Blood Pressure Non-Invasive 116 mmHg mmHg Diastolic Blood Pressure Non-Invasive 75 mmHg mmHg 10/13/2022 8:50 EDT Temperature (Route Not Specified) 35.95 DegC DegC Heart Rate Monitored 69 bpm bpm Respiratory Rate - Anes 13 br/min br/min 10/13/2022 8:49 EDT Systolic Blood Pressure Non-Invasive 109 mmHg mmHg Diastolic Blood Pressure Non-Invasive 75 mmHg mmHg 10/13/2022 8:46 EDT Systolic Blood Pressure Non-Invasive 111 mmHg mmHg Diastolic Blood Pressure Non-Invasive 81 mmHg mmHg 10/13/2022 8:45 EDT Temperature (Route Not Specified) 35.97 DegC DegC Heart Rate Monitored 73 bpm bpm Respiratory Rate - Anes 12 br/min br/min 10/13/2022 8:43 EDT Systolic Blood Pressure Non-Invasive 107 mmHg mmHg Diastolic Blood Pressure Non-Invasive 73 mmHg mmHg 10/13/2022 8:41 EDT Systolic Blood Pressure Non-Invasive 114 mmHg mmHg Diastolic Blood Pressure Non-Invasive 74 mmHg mmHg 10/13/2022 8:40 EDT Temperature (Route Not Specified) 35.95 DegC DegC Heart Rate Monitored 66 bpm bpm Respiratory Rate - Anes 8 br/min br/min 10/13/2022 8:37 EDT Systolic Blood Pressure Non-Invasive 117 mmHg mmHg Diastolic Blood Pressure Non-Invasive 80 mmHg mmHg 10/13/2022 8:35 EDT Temperature (Route Not Specified) 35.95 DegC DegC Heart Rate Monitored 71 bpm bpm Respiratory Rate - Anes 7 br/min br/min 10/13/2022 8:34 EDT Systolic Blood Pressure Non-Invasive 103 mmHg mmHg Diastolic Blood Pressure Non-Invasive 73 mmHg mmHg 10/13/2022 8:32 EDT Systolic Blood Pressure Non-Invasive 108 mmHg mmHg Diastolic Blood Pressure Non-Invasive 71 mmHg mmHg 10/13/2022 8:30 EDT Temperature (Route Not Specified) 35.93 DegC DegC Heart Rate Monitored 75 bpm bpm Respiratory Rate - Anes 8 br/min br/min 10/13/2022 8:28 EDT Systolic Blood Pressure Non-Invasive 113 mmHg mmHg Diastolic Blood Pressure Non-Invasive 75 mmHg mmHg 10/13/2022 8:25 EDT Temperature (Route Not Specified) 35.88 DegC DegC Heart Rate Monitored 72 bpm bpm Respiratory Rate - Anes 10 br/min br/min Systolic Blood Pressure Non-Invasive 117 mmHg mmHg Diastolic Blood Pressure Non-Invasive 84 mmHg mmHg 10/13/2022 8:22 EDT Systolic Blood Pressure Non-Invasive 103 mmHg mmHg Diastolic Blood Pressure Non-Invasive 75 mmHg mmHg 10/13/2022 8:20 EDT Temperature (Route Not Specified) 35.88 DegC DegC Heart Rate Monitored 84 bpm bpm Respiratory Rate - Anes 10 br/min br/min 10/13/2022 8:19 EDT Systolic Blood Pressure Non-Invasive 117 mmHg mmHg Diastolic Blood Pressure Non-Invasive 74 mmHg mmHg 10/13/2022 8:16 EDT Systolic Blood Pressure Non-Invasive 111 mmHg mmHg Diastolic Blood Pressure Non-Invasive 79 mmHg mmHg 10/13/2022 8:15 EDT Temperature (Route Not Specified) 36.06 DegC DegC Heart Rate Monitored 87 bpm bpm Respiratory Rate - Anes 10 br/min br/min 10/13/2022 8:13 EDT Systolic Blood Pressure Non-Invasive 115 mmHg mmHg Diastolic Blood Pressure Non-Invasive 80 mmHg mmHg 10/13/2022 8:10 EDT Temperature (Route Not Specified) 36.14 DegC DegC Heart Rate Monitored 78 bpm bpm Respiratory Rate - Anes 10 br/min br/min Systolic Blood Pressure Non-Invasive 116 mmHg mmHg Diastolic Blood Pressure Non-Invasive 87 mmHg mmHg 10/13/2022 8:07 EDT Systolic Blood Pressure Non-Invasive 101 mmHg mmHg Diastolic Blood Pressure Non-Invasive 66 mmHg mmHg 10/13/2022 8:05 EDT Temperature (Route Not Specified) 36.14 DegC DegC Heart Rate Monitored 73 bpm bpm Respiratory Rate - Anes 10 br/min br/min 10/13/2022 8:04 EDT Systolic Blood Pressure Non-Invasive 99 mmHg mmHg Diastolic Blood Pressure Non-Invasive 71 mmHg mmHg 10/13/2022 8:01 EDT Systolic Blood Pressure Non-Invasive 96 mmHg mmHg Diastolic Blood Pressure Non-Invasive 64 mmHg mmHg 10/13/2022 8:00 EDT Temperature (Route Not Specified) 36.24 DegC DegC Heart Rate Monitored 74 bpm bpm Respiratory Rate - Anes 10 br/min br/min 10/13/2022 7:58 EDT Systolic Blood Pressure Non-Invasive 96 mmHg mmHg Diastolic Blood Pressure Non-Invasive 78 mmHg mmHg 10/13/2022 7:55 EDT Temperature (Route Not Specified) 36.43 DegC DegC Heart Rate Monitored 75 bpm bpm Respiratory Rate - Anes 10 br/min br/min Systolic Blood Pressure Non-Invasive 102 mmHg mmHg Diastolic Blood Pressure Non-Invasive 72 mmHg mmHg 10/13/2022 7:52 EDT Systolic Blood Pressure Non-Invasive 107 mmHg mmHg Diastolic Blood Pressure Non-Invasive 74 mmHg mmHg 10/13/2022 7:50 EDT Temperature (Route Not Specified) 36.57 DegC DegC Heart Rate Monitored 82 bpm bpm Respiratory Rate - Anes 10 br/min br/min 10/13/2022 7:49 EDT Systolic Blood Pressure Non-Invasive 104 mmHg mmHg Diastolic Blood Pressure Non-Invasive 69 mmHg mmHg 10/13/2022 7:48 EDT Systolic Blood Pressure Non-Invasive 106 mmHg mmHg Diastolic Blood Pressure Non-Invasive 71 mmHg mmHg 10/13/2022 7:45 EDT Heart Rate Monitored 94 bpm bpm Respiratory Rate - Anes 10 br/min br/min 10/13/2022 7:43 EDT Systolic Blood Pressure Non-Invasive 158 mmHg mmHg Diastolic Blood Pressure Non-Invasive 109 mmHg mmHg 10/13/2022 7:40 EDT Heart Rate Monitored 80 bpm bpm Respiratory Rate - Anes 8 br/min br/min Systolic Blood Pressure Non-Invasive 112 mmHg mmHg Diastolic Blood Pressure Non-Invasive 71 mmHg mmHg 10/13/2022 7:37 EDT Systolic Blood Pressure Non-Invasive 113 mmHg mmHg Diastolic Blood Pressure Non-Invasive 77 mmHg mmHg 10/13/2022 7:35 EDT Heart Rate Monitored 75 bpm bpm Respiratory Rate - Anes 0 br/min br/min Systolic Blood Pressure Non-Invasive 94 mmHg mmHg Diastolic Blood Pressure Non-Invasive 75 mmHg mmHg 10/13/2022 6:56 EDT Temperature Temporal Artery 36.6 DegC Apical Heart Rate 68 bpm Respiratory Rate 16 br/min Systolic Blood Pressure Non-Invasive 110 mmHg Diastolic Blood Pressure Non-Invasive 76 mmHg . Mental status: at preoperative baseline. Respiratory function: respirations are non-labored, stable. Respiratory support: none. CV function: stable. Cardiovascular support: none. Pain: satisfactory. Nausea status: satisfactory. Postoperative hydration status: within normal limits. Notes: Patient is sufficiently recovered from anesthesia to participate in the evaluation. No follow-up care needed. No complications post-anesthesia.. Digitally Signed by ARLEY WHITT MD on 10/13/2022 12:25 PM [facility] 10-13-2022 Anesthesiology Consult note Patient: BUCK LONG Age: 41 years Sex: Female : 1980 Associated Diagnoses: None Author: FAMILIA VALENTE MD Preoperative Information NPO > 8 hrs Anesthesia history Patient's history: nausea and vomiting with anesthesia. Family's history: negative. History of Present Illness The patient presents for preanesthesia evaluation with 41yo female with no sig PMH presenting for bilateral breast reduction. Patient denies current CP, SOB, NVD, GERD symptoms. METs>4.. Review of Systems Ear/Nose/Mouth/Throat: Negative except as documented in history of present illness. Respiratory: Negative except as documented in history of present illness. Cardiovascular: Negative except as documented in history of present illness. Gastrointestinal: Negative except as documented in history of present illness. Genitourinary: Negative except as documented in history of present illness. Endocrine: Negative except as documented in history of present illness. Musculoskeletal: Negative except as documented in history of present illness. Integumentary: Negative except as documented in history of present illness. Neurologic: Negative except as documented in history of present illness. Health Status Allergies: Nonallergic Reactions (Selected) Severity Not Documented Keflex- Nausea and vomiting., Allergies (1) ActiveReaction KeflexNausea and vomiting Current medications: (Selected) Inpatient Medications Ordered Lactated Ringers Infusion 1,000 mL: 20 mL/hr, Intravenous, Stop: 10/13/22 22:59:00 EDT scopolamine (Transderm-Scop Patch REMOVAL): 1 EA, Miscellaneous, Once scopolamine (Transderm-Scop Patch REMOVAL): 1 EA, Miscellaneous, q72h vancomycin: 1,000 mg, 200 mL, 200 mL/hr, IV Piggyback, PREOP pharm Pending Complete Transderm-Scop 1 mg/72 hr transdermal film, extended release: 1 patch(es), Transdermal, q72h Documented Medications Documented Flonase 50 mcg/inh nasal spray: 2 spray(s), Nostril, each, qDay, PRN: Allergy symptoms, 0 Refill(s), Medications (4) Active Scheduled: (3) Transderm-Scop patch REMOVAL 1 EA, Miscellaneous, q72h Transderm-Scop patch REMOVAL 1 EA, Miscellaneous, Once vancomycin PMX 1,000 mg 200 mL, IV Piggyback, PREOP pharm Continuous: (1) Lactated Ringers 1,000 mL 1,000 mL, Intravenous, 20 mL/hr PRN: (0) Problem list: No problem items selected or recorded., Active Problems (4) Glasses History of COVID-19 Hypertrophy of breast, mammary gland, and nipple during Seasonal allergy Histories Past Medical History: No active or resolved past medical history items have been selected or recorded. Procedure history: Vaginal hysterectomy ([id number]) in the month of 05/2022 at 41 Years. Comments: 10/06/2022 9:56 ALO Quintanilla WITH BILATERAL SALPINGECTOMY AND BLADDER LIFT Surgical removal of wisdom tooth ([id number]). 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 Physical Examination No qualifying data available General: Alert and oriented, No acute distress. Airway: Normal temporomandibular joint mobility, Normal mouth, Normal neck range of motion. Mallampati classification: I (soft palate, fauces, uvula, pillars visible). Dentition Evaluation: Intact, Own teeth. Respiratory: Lungs are clear to auscultation. Cardiovascular: Normal rate, Regular rhythm. Heart Sounds: Normal. Neurologic: Alert, Oriented, No focal deficits. Review / Management Results review: No qualifying data available . Documentation reviewed: Current records. Assessment and Plan [place] [employer] (ASA) physical status classification: Class I. Anesthetic Preoperative Plan Premedication: intravenous. Anesthetic technique: General. Induction: intravenously. Maintenance airway: Oral endotracheal tube. Postoperative pain management: Per surgeon. Risks discussed: nausea, vomiting, sore throat, dental injury, hypotension, allergic reaction, serious complications. Informed consent: signed by patient. Digitally Signed by FAMILIA VALENTE MD on 10/13/2022 07:10 AM [facility] 05-14-2022 Nurse Progress note Notified Dr Reilly at 1430 that patient did not feel as if she had the urge to void. Bladder scanned the patient and there was 25cc of urine in the bladder. Dr Reilly said to call him at 1530 if the patient still was unable to void. 1530 Another attempt to urinate was made and was unsuccessful, Dr. Reilly notified. He advised that she go home and if she feels uncomfortable to call him directly. Patient was comfortable with this and was discharged home. Digitally Signed by ALO Dawkins on 05/14/2022 04:[address] [facility] 05-14-2022 Hospital Discharg e instructions Patient Education 05/14/2022 12:30:23 Nausea and Vomiting, Adult, Oluw-ht-Wwfs Nausea and Vomiting, Adult Nausea is feeling sick to your stomach or feeling that you are about to throw up (vomit). Vomiting is when food in your stomach is thrown up and out of the mouth. Throwing up can make you feel weak. It can also make you lose too much water in your body (get dehydrated). If you lose too much water in your body, you may: Feel tired. Feel thirsty. Have a dry mouth. Have cracked lips. Go pee (urinate) less often. Older adults and people with other diseases or a weak body defense system (immune system) are at higher risk for losing too much water in the body. If you feel sick to your stomach and you throw up, it is important to follow instructions from your doctor about how to take care of yourself. Follow these instructions at home: Watch your symptoms for any changes. Tell your doctor about them. Follow these instructions to care for yourself at home. Eating and drinking Take an ORS (oral rehydration solution). This is a drink that is sold at pharmacies and stores. Drink clear fluids in small amounts as you are able, such as: ?Water. ?Ice chips. ?Fruit juice that has water added (diluted fruit juice). ?Low-calorie sports drinks. Eat bland, fncz-jb-httkvy foods in small amounts as you are able, such as: ?Bananas. ?Applesauce. ?Rice. ?Low-fat (lean) meats. ?[place]. ?Crackers. Avoid drinking fluids that have a lot of sugar or caffeine in them. This includes energy drinks, sports drinks, and soda. Avoid alcohol. Avoid spicy or fatty foods. General instructions Take kvpr-yzd-oejaycn and prescription medicines only as told by your doctor. Drink enough fluid to keep your pee (urine) pale yellow. Wash your hands often with soap and water. If you cannot use soap and water, use hand communications station manager. Make sure that all people in your home wash their hands well and often. Rest at home while you get better. Watch your condition for any changes. Take slow and deep breaths when you feel sick to your stomach. Keep all follow-up visits as told by your doctor. This is important. Contact a doctor if: Your symptoms get worse. You have new symptoms. You have a fever. You cannot drink fluids without throwing up. You feel sick to your stomach for more than 2 days. You feel light-headed or dizzy. You have a headache. You have muscle cramps. You have a rash. You have pain while peeing. Get help right away if: You have pain in your chest, neck, arm, or jaw. You feel very weak or you pass out (faint). You throw up again and again. You have throw up that is bright red or looks like black coffee grounds. You have bloody or black poop (stools) or poop that looks like tar. You have a very bad headache, a stiff neck, or both. You have very bad pain, cramping, or bloating in your belly (abdomen). You have trouble breathing. You are breathing very quickly. Your heart is beating very quickly. Your skin feels cold and clammy. You feel confused. You have signs of losing too much water in your body, such as: ?Dark pee, very little pee, or no pee. ?Cracked lips. ?Dry mouth. ?Sunken eyes. ?Sleepiness. ?Weakness. These symptoms may be an emergency. Do not wait to see if the symptoms will go away. Get medical help right away. Call your local emergency services (911 in the [place] Do not drive yourself to the hospital. Summary Nausea is feeling sick to your stomach or feeling that you are about to throw up (vomit). Vomiting is when food in your stomach is thrown up and out of the mouth. Follow instructions from your doctor about eating and drinking to keep from losing too much water in your body. Take cjko-ibt-wtwzayr and prescription medicines only as told by your doctor. Contact your doctor if your symptoms get worse or you have new symptoms. Keep all follow-up visits as told by your doctor. This is important. This information is not intended to replace advice given to you by your health care provider. Make sure you discuss any questions you have with your health care provider. Document Released: 07/13/2008 Document Revised: 05/19/2019 Document Reviewed: 07/05/2018 [employer] Patient Education 2020 [email or web address]. 05/14/2022 12:30:13 Vaginal Hysterectomy Vaginal Hysterectomy A vaginal hysterectomy is a procedure to remove all or part of the uterus through a small incision in the vagina. In this procedure, your health care provider may remove your entire uterus, including the lower end (cervix). You may need a vaginal hysterectomy to treat: Uterine fibroids. A condition that causes the lining of the uterus to grow in other areas (endometriosis). Problems with pelvic support. Cancer of the cervix, ovaries, uterus, or tissue that lines the uterus (endometrium). Excessive (dysfunctional) uterine bleeding. When removing your uterus, your health care provider may also remove the organs that produce eggs (ovaries) and the tubes that carry eggs to your uterus (fallopian tubes). After a vaginal hysterectomy, you will no longer be able to have a baby. You will also no longer get your menstrual period. Tell a health care provider about: Any allergies you have. All medicines you are taking, including vitamins, herbs, eye drops, creams, and ebap-whk-gsllwnd medicines. Any problems you or family members have had with anesthetic medicines. Any blood disorders you have. Any surgeries you have had. Any medical conditions you have. Whether you are or may be . What are the risks? Generally, this is a safe procedure. However, problems may occur, including: Bleeding. Infection. A blood clot that forms in your leg and travels to your lungs (pulmonary embolism). Damage to surrounding organs. Pain during sex. What happens before the procedure? Ask your health care provider what organs will be removed during surgery. Ask your health care provider about: ?Changing or stopping your regular medicines. This is especially important if you are taking diabetes medicines or blood thinners. ?Taking medicines such as aspirin and ibuprofen. These medicines can thin your blood. Do not take these medicines before your procedure if your health care provider instructs you not to. Follow instructions from your health care provider about eating or drinking restrictions. Do not use any tobacco products, such as cigarettes, chewing tobacco, and e-cigarettes. If you need help quitting, ask your health care provider. Plan to have someone take you home after discharge from the hospital. What happens during the procedure? To reduce your risk of infection: ?Your health care team will wash or sanitize their hands. ?Your skin will be washed with soap. An IV tube will be inserted into one of your veins. You may be given antibiotic medicine to help prevent infection. You will be given one or more of the following: ?A medicine to help you relax (sedative). ?A medicine to numb the area (local anesthetic). ?A medicine to make you fall asleep (general anesthetic). ?A medicine that is injected into an area of your body to numb everything beyond the injection site (regional anesthetic). Your surgeon will make an incision in your vagina. Your surgeon will locate and remove all or part of your uterus. Your ovaries and fallopian tubes may be removed at the same time. The incision will be closed with stitches (sutures) that dissolve over time. The procedure may vary among health care providers and hospitals. What happens after the procedure? Your blood pressure, heart rate, breathing rate, and blood oxygen level will be monitored often until the medicines you were given have worn off. You will be encouraged to get up and walk around after a few hours to help prevent complications. You may have IV tubes in place for a few days. You will be given pain medicine as needed. Do not drive for 24 hours if you were given a sedative. This information is not intended to replace advice given to you by your health care provider. Make sure you discuss any questions you have with your health care provider. Document Released: 05/18/2016 Document Revised: 09/17/2016 Document Reviewed: 02/09/2016 [employer] Patient Education 2020 [email or web address]. 05/14/2022 12:29:49 Deep Vein Thrombosis Deep Vein Thrombosis Deep vein thrombosis (DVT) is a condition in which a blood clot forms in a deep vein, such as a lower leg, thigh, or arm vein. A clot is blood that has thickened into a gel or solid. This condition is dangerous. It can lead to serious and even life-threatening complications if the clot travels to the lungs and causes a blockage (pulmonary embolism). It can also damage veins in the leg. This can result in leg pain, swelling, discoloration, and sores (post-thrombotic syndrome). What are the causes? This condition may be caused by: A slowdown of blood flow. Damage to a vein. A condition that causes blood to clot more easily, such as an inherited clotting disorder. What increases the risk? The following factors may make you more likely to develop this condition: Being overweight. Being older, especially over age 60. Sitting or lying down for more than four hours. Being in the hospital. Lack of physical activity (sedentary lifestyle). , being in childbirth, or having recently given . Taking medicines that contain estrogen, such as medicines to prevent . Smoking. A history of any of the following: ?Blood clots or a blood clotting disease. ?Peripheral vascular disease. ?Inflammatory bowel disease. ?Cancer. ?Heart disease. ?Genetic conditions that affect how your blood clots, such as Factor V Leiden mutation. ?Neurological diseases that affect your legs (leg paresis). ?A recent injury, such as a car accident. ?Major or lengthy surgery. ?A central line placed inside a large vein. What are the signs or symptoms? Symptoms of this condition include: Swelling, pain, or tenderness in an arm or leg. Warmth, redness, or discoloration in an arm or leg. If the clot is in your leg, symptoms may be more noticeable or worse when you stand or walk. Some people may not develop any symptoms. How is this diagnosed? This condition is diagnosed with: A medical history and physical exam. Tests, such as: ?Blood tests. These are done to check how well your blood clots. ?Ultrasound. This is done to check for clots. ?Venogram. For this test, contrast dye is injected into a vein and X-rays are taken to check for any clots. How is this treated? Treatment for this condition depends on: The cause of your DVT. Your risk for bleeding or developing more clots. Any other medical conditions that you have. Treatment may include: Taking a blood thinner (anticoagulant). This type of medicine prevents clots from forming. It may be taken by mouth, injected under the skin, or injected through an IV (catheter). Injecting clot-dissolving medicines into the affected vein (catheter-directed thrombolysis). Having surgery. Surgery may be done to: ?Remove the clot. ?Place a filter in a large vein to catch blood clots before they reach the lungs. Some treatments may be continued for up to six months. Follow these instructions at home: If you are taking blood thinners: Take the medicine exactly as told by your health care provider. Some blood thinners need to be taken at the same time every day. Do not skip a dose. Talk with your health care provider before you take any medicines that contain aspirin or NSAIDs. These medicines increase your risk for dangerous bleeding. Ask your health care provider about foods and drugs that could change the way the medicine works (may interact). Avoid those things if your health care provider tells you to do so. Blood thinners can cause easy bruising and may make it difficult to stop bleeding. Because of this: ?Be very careful when using knives, scissors, or other sharp objects. ?Use an electric razor instead of a blade. ?Avoid activities that could cause injury or bruising, and follow instructions about how to prevent falls. Wear a medical alert bracelet or carry a card that lists what medicines you take. General instructions Take sqds-mju-fhscbrw and prescription medicines only as told by your health care provider. Return to your normal activities as told by your health care provider. Ask your health care provider what activities are safe for you. Wear compression stockings if recommended by your health care provider. Keep all follow-up visits as told by your health care provider. This is important. How is this prevented? To lower your risk of developing this condition again: For 30 or more minutes every day, do an activity that: ?Involves moving your arms and legs. ?Increases your heart rate. When traveling for longer than four hours: ?Exercise your arms and legs every hour. ?Drink plenty of water. ?Avoid drinking alcohol. Avoid sitting or lying for a long time without moving your legs. If you have surgery or you are hospitalized, ask about ways to prevent blood clots. These may include taking frequent walks or using anticoagulants. Stay at a healthy weight. If you are a woman who is older than age 35, avoid unnecessary use of medicines that contain estrogen, such as some control pills. Do not use any products that contain nicotine or tobacco, such as cigarettes and e-cigarettes. This is especially important if you take estrogen medicines. If you need help quitting, ask your health care provider. Contact a health care provider if: You miss a dose of your blood thinner. Your menstrual period is heavier than usual. You have unusual bruising. Get help right away if: You have: ?New or increased pain, swelling, or redness in an arm or leg. ?Numbness or tingling in an arm or leg. ?Shortness of breath. ?Chest pain. ?A rapid or irregular heartbeat. ?A severe headache or confusion. ?A cut that will not stop bleeding. There is blood in your vomit, stool, or urine. You have a serious fall or accident, or you hit your head. You feel light-headed or dizzy. You cough up blood. These symptoms may represent a serious problem that is an emergency. Do not wait to see if the symptoms will go away. Get medical help right away. Call your local emergency services (911 in the [place] Do not drive yourself to the hospital. Summary Deep vein thrombosis (DVT) is a condition in which a blood clot forms in a deep vein, such as a lower leg, thigh, or arm vein. Symptoms can include swelling, warmth, pain, and redness in your leg or arm. This condition may be treated with a blood thinner (anticoagulant medicine), medicine that is injected to dissolve blood clots,compression stockings, or surgery. If you are prescribed blood thinners, take them exactly as told. This information is not intended to replace advice given to you by your health care provider. Make sure you discuss any questions you have with your health care provider. Document Released: 01/25/2006 Document Revised: 01/07/2018 Document Reviewed: 06/25/2017 [employer] Patient Education 2020 [email or web address]. 05/14/2022 12:29:44 General Anesthesia, Adult, Care After General Anesthesia, Adult, Care After This sheet gives you information about how to care for yourself after your procedure. Your health care provider may also give you more specific instructions. If you have problems or questions, contact your health care provider. What can I expect after the procedure? After the procedure, the following side effects are common: Pain or discomfort at the IV site. Nausea. Vomiting. Sore throat. Trouble concentrating. Feeling cold or chills. Weak or tired. Sleepiness and fatigue. Soreness and body aches. These side effects can affect parts of the body that were not involved in surgery. Follow these instructions at home: For at least 24 hours after the procedure: Have a responsible adult stay with you. It is important to have someone help care for you until you are awake and alert. Rest as needed. Do not: ?Participate in activities in which you could fall or become injured. ?Drive. ?Use heavy machinery. ?Drink alcohol. ?Take sleeping pills or medicines that cause drowsiness. ?Make important decisions or sign legal documents. ?Take care of children on your own. Eating and drinking Follow any instructions from your health care provider about eating or drinking restrictions. When you feel hungry, start by eating small amounts of foods that are soft and easy to digest (bland), such as toast. Gradually return to your regular diet. Drink enough fluid to keep your urine pale yellow. If you vomit, rehydrate by drinking water, juice, or clear broth. General instructions If you have sleep apnea, surgery and certain medicines can increase your risk for breathing problems. Follow instructions from your health care provider about wearing your sleep device: ?Anytime you are sleeping, including during daytime naps. ?While taking prescription pain medicines, sleeping medicines, or medicines that make you drowsy. Return to your normal activities as told by your health care provider. Ask your health care provider what activities are safe for you. Take tite-mzz-jkhqljj and prescription medicines only as told by your health care provider. If you smoke, do not smoke without supervision. Keep all follow-up visits as told by your health care provider. This is important. Contact a health care provider if: You have nausea or vomiting that does not get better with medicine. You cannot eat or drink without vomiting. You have pain that does not get better with medicine. You are unable to pass urine. You develop a skin rash. You have a fever. You have redness around your IV site that gets worse. Get help right away if: You have difficulty breathing. You have chest pain. You have blood in your urine or stool, or you vomit blood. Summary After the procedure, it is common to have a sore throat or nausea. It is also common to feel tired. Have a responsible adult stay with you for the first 24 hours after general anesthesia. It is important to have someone help care for you until you are awake and alert. When you feel hungry, start by eating small amounts of foods that are soft and easy to digest (bland), such as toast. Gradually return to your regular diet. Drink enough fluid to keep your urine pale yellow. Return to your normal activities as told by your health care provider. Ask your health care provider what activities are safe for you. This information is not intended to replace advice given to you by your health care provider. Make sure you discuss any questions you have with your health care provider. Document Released: 05/03/2001 Document Revised: 01/28/2018 Document Reviewed: 09/10/2017 [employer] Patient Education [employer]. Follow Up Care 03/26/2022 16:08:54 With:ALEXANDER REILLY DO Address: [address] [place] [phone] When: Unknown Comments:CALL DR REILLY'S OFFICE FOR A FOLLOW UP APPOINTMENT AND WITH ANY QUESTIONS OR CONCERNS. GO TO THE EMERGENCY ROOM WITH ANY URGENT CONCERNS. [facility] 05-14-2022 Summary of episod e note Discharge Instructions Thank you for allowing [facility] to assist you with your healthcare needs. The following is important discharge information regarding your hospital visit. Your Care Team ASHLEY CHIN DR Your Diagnosis Cystocele with incomplete uterovaginal prolapse What to do next Follow Up Appointments Follow Up with ALEXANDER REILLY DO When Why: CALL DR REILLY'S OFFICE FOR A FOLLOW UP APPOINTMENT AND WITH ANY QUESTIONS OR CONCERNS. GO TO THE EMERGENCY ROOM WITH ANY URGENT CONCERNS. Where: [address] [place] [phone] The Following Activity and Diet Have Been Ordered for You Discharge Activity - Ordered -- NO activity restrictions, May gradually resume activity as tolerated. No tub baths for [address] pain free. No intercourse, tampons or douches for 6 weeks., 05/14/22 12:22:00 EDT Discharge Driving Restrictions - Ordered -- No driving until pain-free, 05/14/22 12:22:00 EDT Discharge Return to Work, School, or Sports - Ordered -- within 6 weeks, May return to: work, 05/14/22 12:22:00 EDT Discharge Diet - Ordered -- No changes were made to your diet during your hospital stay. Please resume your pre hospitalization diet on discharge., 05/14/22 12:22:00 EDT Allergies Keflex (intractable vomiting) Medications Please ask your primary doctor or pharmacist before taking any other medication not listed, including over the counter drugs, herbal medications, vitamins and or supplements as they may interact with your home medications. What How Much When Instructions Last Dose Unchanged clindamycin topical (Clindesse 2% vaginal cream) 1 Applicatorful Vaginal Once Unchanged phenazopyridine (phenazopyridine 200 mg oral tablet) 1 tab(s) by mouth Daily at bedtime Duration: 2 Days Please take this list to your next doctor s visit. Bring all medications you take, including over the counter medications, herbals and other supplements with you to your doctor s visit. Patients and families are reminded to discard old lists and to update any records with all medication providers or retail pharmacies. Education Materials Nausea and Vomiting, Adult Nausea is feeling sick to your stomach or feeling that you are about to throw up (vomit). Vomiting is when food in your stomach is thrown up and out of the mouth. Throwing up can make you feel weak. It can also make you lose too much water in your body (get dehydrated). If you lose too much water in your body, you may: Feel tired. Feel thirsty. Have a dry mouth. Have cracked lips. Go pee (urinate) less often. Older adults and people with other diseases or a weak body defense system (immune system) are at higher risk for losing too much water in the body. If you feel sick to your stomach and you throw up, it is important to follow instructions from your doctor about how to take care of yourself. Follow these instructions at home: Watch your symptoms for any changes. Tell your doctor about them. Follow these instructions to care for yourself at home. Eating and drinking Take an ORS (oral rehydration solution). This is a drink that is sold at pharmacies and stores. Drink clear fluids in small amounts as you are able, such as: ? Water. ? Ice chips. ? Fruit juice that has water added (diluted fruit juice). ? Low-calorie sports drinks. Eat bland, gazx-om-nrrrkj foods in small amounts as you are able, such as: ? Bananas. ? Applesauce. ? Rice. ? Low-fat (lean) meats. ? [place]. ? Crackers. Avoid drinking fluids that have a lot of sugar or caffeine in them. This includes energy drinks, sports drinks, and soda. Avoid alcohol. Avoid spicy or fatty foods. General instructions Take ftrm-azk-ovvgjsr and prescription medicines only as told by your doctor. Drink enough fluid to keep your pee (urine) pale yellow. Wash your hands often with soap and water. If you cannot use soap and water, use hand communications station manager. Make sure that all people in your home wash their hands well and often. Rest at home while you get better. Watch your condition for any changes. Take slow and deep breaths when you feel sick to your stomach. Keep all follow-up visits as told by your doctor. This is important. Contact a doctor if: Your symptoms get worse. You have new symptoms. You have a fever. You cannot drink fluids without throwing up. You feel sick to your stomach for more than 2 days. You feel light-headed or dizzy. You have a headache. You have muscle cramps. You have a rash. You have pain while peeing. Get help right away if: You have pain in your chest, neck, arm, or jaw. You feel very weak or you pass out (faint). You throw up again and again. You have throw up that is bright red or looks like black coffee grounds. You have bloody or black poop (stools) or poop that looks like tar. You have a very bad headache, a stiff neck, or both. You have very bad pain, cramping, or bloating in your belly (abdomen). You have trouble breathing. You are breathing very quickly. Your heart is beating very quickly. Your skin feels cold and clammy. You feel confused. You have signs of losing too much water in your body, such as: ? Dark pee, very little pee, or no pee. ? Cracked lips. ? Dry mouth. ? Sunken eyes. ? Sleepiness. ? Weakness. These symptoms may be an emergency. Do not wait to see if the symptoms will go away. Get medical help right away. Call your local emergency services (911 in the [place] Do not drive yourself to the hospital. Summary Nausea is feeling sick to your stomach or feeling that you are about to throw up (vomit). Vomiting is when food in your stomach is thrown up and out of the mouth. Follow instructions from your doctor about eating and drinking to keep from losing too much water in your body. Take nhke-ljb-hdmjxvr and prescription medicines only as told by your doctor. Contact your doctor if your symptoms get worse or you have new symptoms. Keep all follow-up visits as told by your doctor. This is important. This information is not intended to replace advice given to you by your health care provider. Make sure you discuss any questions you have with your health care provider. Document Released: 07/13/2008 Document Revised: 05/19/2019 Document Reviewed: 07/05/2018 [employer] Patient Education 2020 [email or web address]. Vaginal Hysterectomy A vaginal hysterectomy is a procedure to remove all or part of the uterus through a small incision in the vagina. In this procedure, your health care provider may remove your entire uterus, including the lower end (cervix). You may need a vaginal hysterectomy to treat: Uterine fibroids. A condition that causes the lining of the uterus to grow in other areas (endometriosis). Problems with pelvic support. Cancer of the cervix, ovaries, uterus, or tissue that lines the uterus (endometrium). Excessive (dysfunctional) uterine bleeding. When removing your uterus, your health care provider may also remove the organs that produce eggs (ovaries) and the tubes that carry eggs to your uterus (fallopian tubes). After a vaginal hysterectomy, you will no longer be able to have a baby. You will also no longer get your menstrual period. Tell a health care provider about: Any allergies you have. All medicines you are taking, including vitamins, herbs, eye drops, creams, and ovhj-wnc-itoelzk medicines. Any problems you or family members have had with anesthetic medicines. Any blood disorders you have. Any surgeries you have had. Any medical conditions you have. Whether you are or may be . What are the risks? Generally, this is a safe procedure. However, problems may occur, including: Bleeding. Infection. A blood clot that forms in your leg and travels to your lungs (pulmonary embolism). Damage to surrounding organs. Pain during sex. What happens before the procedure? Ask your health care provider what organs will be removed during surgery. Ask your health care provider about: ? Changing or stopping your regular medicines. This is especially important if you are taking diabetes medicines or blood thinners. ? Taking medicines such as aspirin and ibuprofen. These medicines can thin your blood. Do not take these medicines before your procedure if your health care provider instructs you not to. Follow instructions from your health care provider about eating or drinking restrictions. Do not use any tobacco products, such as cigarettes, chewing tobacco, and e-cigarettes. If you need help quitting, ask your health care provider. Plan to have someone take you home after discharge from the hospital. What happens during the procedure? To reduce your risk of infection: ? Your health care team will wash or sanitize their hands. ? Your skin will be washed with soap. An IV tube will be inserted into one of your veins. You may be given antibiotic medicine to help prevent infection. You will be given one or more of the following: ? A medicine to help you relax (sedative). ? A medicine to numb the area (local anesthetic). ? A medicine to make you fall asleep (general anesthetic). ? A medicine that is injected into an area of your body to numb everything beyond the injection site (regional anesthetic). Your surgeon will make an incision in your vagina. Your surgeon will locate and remove all or part of your uterus. Your ovaries and fallopian tubes may be removed at the same time. The incision will be closed with stitches (sutures) that dissolve over time. The procedure may vary among health care providers and hospitals. What happens after the procedure? Your blood pressure, heart rate, breathing rate, and blood oxygen level will be monitored often until the medicines you were given have worn off. You will be encouraged to get up and walk around after a few hours to help prevent complications. You may have IV tubes in place for a few days. You will be given pain medicine as needed. Do not drive for 24 hours if you were given a sedative. This information is not intended to replace advice given to you by your health care provider. Make sure you discuss any questions you have with your health care provider. Document Released: 05/18/2016 Document Revised: 09/17/2016 Document Reviewed: 02/09/2016 Elsevier Patient Education 2020 [employer] Deep Vein Thrombosis Deep vein thrombosis (DVT) is a condition in which a blood clot forms in a deep vein, such as a lower leg, thigh, or arm vein. A clot is blood that has thickened into a gel or solid. This condition is dangerous. It can lead to serious and even life-threatening complications if the clot travels to the lungs and causes a blockage (pulmonary embolism). It can also damage veins in the leg. This can result in leg pain, swelling, discoloration, and sores (post-thrombotic syndrome). What are the causes? This condition may be caused by: A slowdown of blood flow. Damage to a vein. A condition that causes blood to clot more easily, such as an inherited clotting disorder. What increases the risk? The following factors may make you more likely to develop this condition: Being overweight. Being older, especially over age 60. Sitting or lying down for more than four hours. Being in the hospital. Lack of physical activity (sedentary lifestyle). , being in childbirth, or having recently given . Taking medicines that contain estrogen, such as medicines to prevent . Smoking. A history of any of the following: ? Blood clots or a blood clotting disease. ? Peripheral vascular disease. ? Inflammatory bowel disease. ? Cancer. ? Heart disease. ? Genetic conditions that affect how your blood clots, such as Factor V Leiden mutation. ? Neurological diseases that affect your legs (leg paresis). ? A recent injury, such as a car accident. ? Major or lengthy surgery. ? A central line placed inside a large vein. What are the signs or symptoms? Symptoms of this condition include: Swelling, pain, or tenderness in an arm or leg. Warmth, redness, or discoloration in an arm or leg. If the clot is in your leg, symptoms may be more noticeable or worse when you stand or walk. Some people may not develop any symptoms. How is this diagnosed? This condition is diagnosed with: A medical history and physical exam. Tests, such as: ? Blood tests. These are done to check how well your blood clots. ? Ultrasound. This is done to check for clots. ? Venogram. For this test, contrast dye is injected into a vein and X-rays are taken to check for any clots. How is this treated? Treatment for this condition depends on: The cause of your DVT. Your risk for bleeding or developing more clots. Any other medical conditions that you have. Treatment may include: Taking a blood thinner (anticoagulant). This type of medicine prevents clots from forming. It may be taken by mouth, injected under the skin, or injected through an IV (catheter). Injecting clot-dissolving medicines into the affected vein (catheter-directed thrombolysis). Having surgery. Surgery may be done to: ? Remove the clot. ? Place a filter in a large vein to catch blood clots before they reach the lungs. Some treatments may be continued for up to six months. Follow these instructions at home: If you are taking blood thinners: Take the medicine exactly as told by your health care provider. Some blood thinners need to be taken at the same time every day. Do not skip a dose. Talk with your health care provider before you take any medicines that contain aspirin or NSAIDs. These medicines increase your risk for dangerous bleeding. Ask your health care provider about foods and drugs that could change the way the medicine works (may interact). Avoid those things if your health care provider tells you to do so. Blood thinners can cause easy bruising and may make it difficult to stop bleeding. Because of this: ? Be very careful when using knives, scissors, or other sharp objects. ? Use an electric razor instead of a blade. ? Avoid activities that could cause injury or bruising, and follow instructions about how to prevent falls. Wear a medical alert bracelet or carry a card that lists what medicines you take. General instructions Take bctt-yjw-syrnvrd and prescription medicines only as told by your health care provider. Return to your normal activities as told by your health care provider. Ask your health care provider what activities are safe for you. Wear compression stockings if recommended by your health care provider. Keep all follow-up visits as told by your health care provider. This is important. How is this prevented? To lower your risk of developing this condition again: For 30 or more minutes every day, do an activity that: ? Involves moving your arms and legs. ? Increases your heart rate. When traveling for longer than four hours: ? Exercise your arms and legs every hour. ? Drink plenty of water. ? Avoid drinking alcohol. Avoid sitting or lying for a long time without moving your legs. If you have surgery or you are hospitalized, ask about ways to prevent blood clots. These may include taking frequent walks or using anticoagulants. Stay at a healthy weight. If you are a woman who is older than age 35, avoid unnecessary use of medicines that contain estrogen, such as some control pills. Do not use any products that contain nicotine or tobacco, such as cigarettes and e-cigarettes. This is especially important if you take estrogen medicines. If you need help quitting, ask your health care provider. Contact a health care provider if: You miss a dose of your blood thinner. Your menstrual period is heavier than usual. You have unusual bruising. Get help right away if: You have: ? New or increased pain, swelling, or redness in an arm or leg. ? Numbness or tingling in an arm or leg. ? Shortness of breath. ? Chest pain. ? A rapid or irregular heartbeat. ? A severe headache or confusion. ? A cut that will not stop bleeding. There is blood in your vomit, stool, or urine. You have a serious fall or accident, or you hit your head. You feel light-headed or dizzy. You cough up blood. These symptoms may represent a serious problem that is an emergency. Do not wait to see if the symptoms will go away. Get medical help right away. Call your local emergency services (911 in the [place] Do not drive yourself to the hospital. Summary Deep vein thrombosis (DVT) is a condition in which a blood clot forms in a deep vein, such as a lower leg, thigh, or arm vein. Symptoms can include swelling, warmth, pain, and redness in your leg or arm. This condition may be treated with a blood thinner (anticoagulant medicine), medicine that is injected to dissolve blood clots,compression stockings, or surgery. If you are prescribed blood thinners, take them exactly as told. This information is not intended to replace advice given to you by your health care provider. Make sure you discuss any questions you have with your health care provider. Document Released: 01/25/2006 Document Revised: 01/07/2018 Document Reviewed: 06/25/2017 [employer] Patient Education 2020 [employer]. General Anesthesia, Adult, Care After This sheet gives you information about how to care for yourself after your procedure. Your health care provider may also give you more specific instructions. If you have problems or questions, contact your health care provider. What can I expect after the procedure? After the procedure, the following side effects are common: Pain or discomfort at the IV site. Nausea. Vomiting. Sore throat. Trouble concentrating. Feeling cold or chills. Weak or tired. Sleepiness and fatigue. Soreness and body aches. These side effects can affect parts of the body that were not involved in surgery. Follow these instructions at home: For at least 24 hours after the procedure: Have a responsible adult stay with you. It is important to have someone help care for you until you are awake and alert. Rest as needed. Do not: ? Participate in activities in which you could fall or become injured. ? Drive. ? Use heavy machinery. ? Drink alcohol. ? Take sleeping pills or medicines that cause drowsiness. ? Make important decisions or sign legal documents. ? Take care of children on your own. Eating and drinking Follow any instructions from your health care provider about eating or drinking restrictions. When you feel hungry, start by eating small amounts of foods that are soft and easy to digest (bland), such as toast. Gradually return to your regular diet. Drink enough fluid to keep your urine pale yellow. If you vomit, rehydrate by drinking water, juice, or clear broth. General instructions If you have sleep apnea, surgery and certain medicines can increase your risk for breathing problems. Follow instructions from your health care provider about wearing your sleep device: ? Anytime you are sleeping, including during daytime naps. ? While taking prescription pain medicines, sleeping medicines, or medicines that make you drowsy. Return to your normal activities as told by your health care provider. Ask your health care provider what activities are safe for you. Take jakb-cag-qliltnq and prescription medicines only as told by your health care provider. If you smoke, do not smoke without supervision. Keep all follow-up visits as told by your health care provider. This is important. Contact a health care provider if: You have nausea or vomiting that does not get better with medicine. You cannot eat or drink without vomiting. You have pain that does not get better with medicine. You are unable to pass urine. You develop a skin rash. You have a fever. You have redness around your IV site that gets worse. Get help right away if: You have difficulty breathing. You have chest pain. You have blood in your urine or stool, or you vomit blood. Summary After the procedure, it is common to have a sore throat or nausea. It is also common to feel tired. Have a responsible adult stay with you for the first 24 hours after general anesthesia. It is important to have someone help care for you until you are awake and alert. When you feel hungry, start by eating small amounts of foods that are soft and easy to digest (bland), such as toast. Gradually return to your regular diet. Drink enough fluid to keep your urine pale yellow. Return to your normal activities as told by your health care provider. Ask your health care provider what activities are safe for you. This information is not intended to replace advice given to you by your health care provider. Make sure you discuss any questions you have with your health care provider. Document Released: 05/03/2001 Document Revised: 01/28/2018 Document Reviewed: 09/10/2017 [employer] Patient Education 2020 [email or web address]. Additional Information VACCINATE! IT SAVES LIVES! Members of the community who have not yet received the COVID-19 vaccine and would like to receive it can visit one of [facility] vaccine clinics. There are many vaccine clinic locations within the [facility]. For locations and available times, please visit https://gettheshot.coronavirus.o hio.gov/. It is important to note that some COVID mobile vaccine clinics are held outdoors and may be canceled in rainy or stormy conditions. To learn more about pediatric vaccinations (ages 5-11), we invite you to visit the [facility] webpage. https://www.[email or web address].org/p [email or web address]-Lpuys-Czuuzatsxuy-Freq kqqloq-Bexmj-Dfixxfgkz.html To learn more about the COVID-19 vaccine, we invite you to visit the CDC website for a list of frequently asked questions. https://www.cdc.gov/coronavirus/ 2019-ncov/vaccines/faq.html [employer] Patient Portal Access Instructions: Stay connected with your healthcare team and access your personal medical information anytime with the [employer] [facility] Patient Portal.If you would like a full copy of your medical records, please contact the [facility] Medical Records Department, Wednesday through Wednesday between 8a.m. and 4:30p.m. Please follow the directions below to access the portal: 1.Access the email account you provided upon registration to the [facility].2.Look for an invitation email from [facility].3.Open the email and access the invitation link: Accept Invitation to [facility]4.Fill in the required lerner to create your account. Sign into [email or web address] with your username and password that you created in the above steps to stay up to date. You can then view a summary of results, a summary of your visits, and the ability to download your summaries to your computer or send the information securely to a physician. Remember that your healthcare information is confidential, so carefully consider who you will allow to register on the [email or web address] Patient Portal for access to your information. You can also access the [facility] Patient Portal on the [employer] justice. Simply click on Health Records under Health Data and then click on the [facility] logo. HOW TO SAFELY DISPOSE OF PRESCRIPTION MEDICATIONS Please use one of the following methods to safely dispose of your unused medications. 1.Use a drug disposal kit: the drug disposal pouch allows you to safely discard your old and unused drugs. Ask your nurse to give you one when you are discharged.2.Visit a local take-back location: Many local pharmacies and police departments have programs that collect old and unwanted prescription drugs. Call your local pharmacy or go to http://[employer].Neighbortree.com/7A0Ch2j to find one close to you.3.Make use of household items: Use cat litter or old coffee grounds to dispose medications if other options are not available. Mix your drugs with these household products, seal them in an airtight container and throw it into the garbage. Call [facility]: [phone] to be sure your drugs can be disposed of in this way. Some medicines may require a different approach.4.Never flush your medications down the toilet. IF YOU HAVE BEEN PRESCRIBED AN OPIOID FOR PAIN If you have been prescribed an opioid (such as hydrocodone, oxycodone or morphine), it is critical to understand the possible side effects and risks of opioid pain medications. Even when taken as directed, opioids can have several side effects including: Tolerance, meaning you might need to take more of a medication for the same pain relief. Nausea, vomiting and/or constipation. Sleepiness, dizziness, dry mouth, confusion, depression or itching. Physical dependence, meaning you have withdrawal symptoms when a medication is stopped, can develop within a few days. KNOW YOUR RESPONSIBILITIES It is important to know exactly how much and how often to take the opioid pain medications you are prescribed. Never take opioids in higher amounts or more often than prescribed. Do not combine opioids with alcohol or other drugs that cause drowsiness, such as benzodiazepines, also known as benzos, including diazepam and alprazolam, muscle relaxants or sleep aids. Never sell or share prescription opioids. This is illegal. Store opioids in a secure place and out of reach of others (including children, family, friends and visitors). The last page of this document has been signed and retained as a CHART COPY. Signatures Patient Education Materials Nausea and Vomiting, Adult, [id number] Vaginal Hysterectomy Deep Vein Thrombosis General Anesthesia, Adult, Care After Medication Leaflets My discharge plan and instructions have been reviewed and explained to me and I,BUCK LONG understand my current condition and have read and understand these discharge instructions. I have received a written copy of the plan/instructions. If I have questions, I am aware that I should contact my doctor. 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 05-14-2022 Anesthesiology Consult note Patient: BUCK LONG Age: 41 years Sex: Female : 1980 Associated Diagnoses: None Author: LINDA, GONZALO F. ORGANIZATIONAL CONSULTANT-VP CLINICAL RESEARCH Assessment Postanesthesia assessment Vitals: Vital signs from flowsheet : Vital Signs 05/14/2022 11:50 EDT Heart Rate Monitored 93 bpm bpm Respiratory Rate - Anes 9 br/min br/min 05/14/2022 11:45 EDT Temperature (Route Not Specified) 36.5 DegC DegC Heart Rate Monitored 102 bpm bpm Respiratory Rate - Anes 8 br/min br/min Systolic Blood Pressure Non-Invasive 107 mmHg mmHg Diastolic Blood Pressure Non-Invasive 55 mmHg mmHg 05/14/2022 11:40 EDT Heart Rate Monitored 78 bpm bpm Respiratory Rate - Anes 8 br/min br/min Systolic Blood Pressure Non-Invasive 98 mmHg mmHg Diastolic Blood Pressure Non-Invasive 50 mmHg mmHg 05/14/2022 11:35 EDT Heart Rate Monitored 82 bpm bpm Respiratory Rate - Anes 8 br/min br/min Systolic Blood Pressure Non-Invasive 100 mmHg mmHg Diastolic Blood Pressure Non-Invasive 50 mmHg mmHg 05/14/2022 11:30 EDT Temperature (Route Not Specified) 36.5 DegC DegC Heart Rate Monitored 76 bpm bpm Respiratory Rate - Anes 9 br/min br/min Systolic Blood Pressure Non-Invasive 100 mmHg mmHg Diastolic Blood Pressure Non-Invasive 51 mmHg mmHg 05/14/2022 11:25 EDT Heart Rate Monitored 72 bpm bpm Respiratory Rate - Anes 9 br/min br/min Systolic Blood Pressure Non-Invasive 101 mmHg mmHg Diastolic Blood Pressure Non-Invasive 52 mmHg mmHg 05/14/2022 11:20 EDT Heart Rate Monitored 72 bpm bpm Respiratory Rate - Anes 9 br/min br/min Systolic Blood Pressure Non-Invasive 97 mmHg mmHg Diastolic Blood Pressure Non-Invasive 52 mmHg mmHg 05/14/2022 11:15 EDT Temperature (Route Not Specified) 36.5 DegC DegC Heart Rate Monitored 73 bpm bpm Respiratory Rate - Anes 11 br/min br/min Systolic Blood Pressure Non-Invasive 103 mmHg mmHg Diastolic Blood Pressure Non-Invasive 52 mmHg mmHg 05/14/2022 11:10 EDT Heart Rate Monitored 74 bpm bpm Respiratory Rate - Anes 9 br/min br/min Systolic Blood Pressure Non-Invasive 98 mmHg mmHg Diastolic Blood Pressure Non-Invasive 53 mmHg mmHg 05/14/2022 11:05 EDT Heart Rate Monitored 79 bpm bpm Respiratory Rate - Anes 9 br/min br/min Systolic Blood Pressure Non-Invasive 98 mmHg mmHg Diastolic Blood Pressure Non-Invasive 46 mmHg mmHg 05/14/2022 11:00 EDT Temperature (Route Not Specified) 36.5 DegC DegC Heart Rate Monitored 79 bpm bpm Respiratory Rate - Anes 10 br/min br/min Systolic Blood Pressure Non-Invasive 93 mmHg mmHg Diastolic Blood Pressure Non-Invasive 46 mmHg mmHg 05/14/2022 10:55 EDT Heart Rate Monitored 68 bpm bpm Respiratory Rate - Anes 7 br/min br/min Systolic Blood Pressure Non-Invasive 92 mmHg mmHg Diastolic Blood Pressure Non-Invasive 47 mmHg mmHg 05/14/2022 10:50 EDT Heart Rate Monitored 73 bpm bpm Respiratory Rate - Anes 7 br/min br/min Systolic Blood Pressure Non-Invasive 98 mmHg mmHg Diastolic Blood Pressure Non-Invasive 48 mmHg mmHg 05/14/2022 10:45 EDT Temperature (Route Not Specified) 36.5 DegC DegC Heart Rate Monitored 69 bpm bpm Respiratory Rate - Anes 8 br/min br/min Systolic Blood Pressure Non-Invasive 96 mmHg mmHg Diastolic Blood Pressure Non-Invasive 52 mmHg mmHg 05/14/2022 10:40 EDT Heart Rate Monitored 80 bpm bpm Respiratory Rate - Anes 12 br/min br/min Systolic Blood Pressure Non-Invasive 104 mmHg mmHg Diastolic Blood Pressure Non-Invasive 62 mmHg mmHg 05/14/2022 10:35 EDT Heart Rate Monitored 73 bpm bpm Respiratory Rate - Anes 12 br/min br/min Systolic Blood Pressure Non-Invasive 98 mmHg mmHg Diastolic Blood Pressure Non-Invasive 55 mmHg mmHg 05/14/2022 10:30 EDT Temperature (Route Not Specified) 36.5 DegC DegC Heart Rate Monitored 72 bpm bpm Respiratory Rate - Anes 12 br/min br/min Systolic Blood Pressure Non-Invasive 105 mmHg mmHg Diastolic Blood Pressure Non-Invasive 61 mmHg mmHg 05/14/2022 10:25 EDT Heart Rate Monitored 77 bpm bpm Respiratory Rate - Anes 12 br/min br/min Systolic Blood Pressure Non-Invasive 107 mmHg mmHg Diastolic Blood Pressure Non-Invasive 67 mmHg mmHg 05/14/2022 10:20 EDT Heart Rate Monitored 74 bpm bpm Respiratory Rate - Anes 12 br/min br/min Systolic Blood Pressure Non-Invasive 104 mmHg mmHg Diastolic Blood Pressure Non-Invasive 67 mmHg mmHg 05/14/2022 10:15 EDT Temperature (Route Not Specified) 36.5 DegC DegC Heart Rate Monitored 71 bpm bpm Respiratory Rate - Anes 12 br/min br/min Systolic Blood Pressure Non-Invasive 106 mmHg mmHg Diastolic Blood Pressure Non-Invasive 63 mmHg mmHg 05/14/2022 10:10 EDT Heart Rate Monitored 72 bpm bpm Respiratory Rate - Anes 14 br/min br/min Systolic Blood Pressure Non-Invasive 107 mmHg mmHg Diastolic Blood Pressure Non-Invasive 71 mmHg mmHg 05/14/2022 10:05 EDT Heart Rate Monitored 76 bpm bpm Respiratory Rate - Anes 12 br/min br/min Systolic Blood Pressure Non-Invasive 102 mmHg mmHg Diastolic Blood Pressure Non-Invasive 59 mmHg mmHg 05/14/2022 10:00 EDT Temperature (Route Not Specified) 36.5 DegC DegC Heart Rate Monitored 74 bpm bpm Respiratory Rate - Anes 12 br/min br/min Systolic Blood Pressure Non-Invasive 100 mmHg mmHg Diastolic Blood Pressure Non-Invasive 54 mmHg mmHg 05/14/2022 9:55 EDT Heart Rate Monitored 75 bpm bpm Respiratory Rate - Anes 12 br/min br/min Systolic Blood Pressure Non-Invasive 100 mmHg mmHg Diastolic Blood Pressure Non-Invasive 61 mmHg mmHg 05/14/2022 9:50 EDT Heart Rate Monitored 81 bpm bpm Respiratory Rate - Anes 12 br/min br/min Systolic Blood Pressure Non-Invasive 109 mmHg mmHg Diastolic Blood Pressure Non-Invasive 66 mmHg mmHg 05/14/2022 9:45 EDT Temperature (Route Not Specified) 36 DegC DegC Heart Rate Monitored 78 bpm bpm Respiratory Rate - Anes 12 br/min br/min Systolic Blood Pressure Non-Invasive 104 mmHg mmHg Diastolic Blood Pressure Non-Invasive 69 mmHg mmHg 05/14/2022 9:40 EDT Heart Rate Monitored 80 bpm bpm Respiratory Rate - Anes 12 br/min br/min Systolic Blood Pressure Non-Invasive 106 mmHg mmHg Diastolic Blood Pressure Non-Invasive 65 mmHg mmHg 05/14/2022 9:35 EDT Heart Rate Monitored 77 bpm bpm Respiratory Rate - Anes 10 br/min br/min Systolic Blood Pressure Non-Invasive 108 mmHg mmHg Diastolic Blood Pressure Non-Invasive 64 mmHg mmHg 05/14/2022 9:30 EDT Temperature (Route Not Specified) 36 DegC DegC Heart Rate Monitored 84 bpm bpm Respiratory Rate - Anes 10 br/min br/min Systolic Blood Pressure Non-Invasive 105 mmHg mmHg Diastolic Blood Pressure Non-Invasive 72 mmHg mmHg 05/14/2022 9:25 EDT Heart Rate Monitored 79 bpm bpm Respiratory Rate - Anes 10 br/min br/min Systolic Blood Pressure Non-Invasive 106 mmHg mmHg Diastolic Blood Pressure Non-Invasive 72 mmHg mmHg 05/14/2022 9:20 EDT Heart Rate Monitored 82 bpm bpm Respiratory Rate - Anes 9 br/min br/min Systolic Blood Pressure Non-Invasive 108 mmHg mmHg Diastolic Blood Pressure Non-Invasive 66 mmHg mmHg 05/14/2022 9:15 EDT Temperature (Route Not Specified) 36 DegC DegC Heart Rate Monitored 62 bpm bpm Respiratory Rate - Anes 9 br/min br/min Systolic Blood Pressure Non-Invasive 92 mmHg mmHg Diastolic Blood Pressure Non-Invasive 57 mmHg mmHg 05/14/2022 9:12 EDT Systolic Blood Pressure Non-Invasive 82 mmHg mmHg Diastolic Blood Pressure Non-Invasive 49 mmHg mmHg 05/14/2022 9:10 EDT Heart Rate Monitored 62 bpm bpm Respiratory Rate - Anes 9 br/min br/min Systolic Blood Pressure Non-Invasive 77 mmHg mmHg Diastolic Blood Pressure Non-Invasive 47 mmHg mmHg 05/14/2022 9:05 EDT Heart Rate Monitored 69 bpm bpm Respiratory Rate - Anes 8 br/min br/min Systolic Blood Pressure Non-Invasive 92 mmHg mmHg Diastolic Blood Pressure Non-Invasive 52 mmHg mmHg 05/14/2022 9:00 EDT Temperature (Route Not Specified) 36 DegC DegC Heart Rate Monitored 67 bpm bpm Respiratory Rate - Anes 9 br/min br/min Systolic Blood Pressure Non-Invasive 89 mmHg mmHg Diastolic Blood Pressure Non-Invasive 51 mmHg mmHg 05/14/2022 8:55 EDT Heart Rate Monitored 80 bpm bpm Respiratory Rate - Anes 9 br/min br/min Systolic Blood Pressure Non-Invasive 104 mmHg mmHg Diastolic Blood Pressure Non-Invasive 69 mmHg mmHg 05/14/2022 8:50 EDT Heart Rate Monitored 74 bpm bpm Respiratory Rate - Anes 10 br/min br/min Systolic Blood Pressure Non-Invasive 94 mmHg mmHg Diastolic Blood Pressure Non-Invasive 60 mmHg mmHg 05/14/2022 8:45 EDT Temperature (Route Not Specified) 36 DegC DegC Heart Rate Monitored 85 bpm bpm Respiratory Rate - Anes 10 br/min br/min Systolic Blood Pressure Non-Invasive 91 mmHg mmHg Diastolic Blood Pressure Non-Invasive 51 mmHg mmHg 05/14/2022 8:40 EDT Heart Rate Monitored 94 bpm bpm Respiratory Rate - Anes 10 br/min br/min Systolic Blood Pressure Non-Invasive 92 mmHg mmHg Diastolic Blood Pressure Non-Invasive 55 mmHg mmHg 05/14/2022 8:35 EDT Heart Rate Monitored 91 bpm bpm Respiratory Rate - Anes 12 br/min br/min Systolic Blood Pressure Non-Invasive 91 mmHg mmHg Diastolic Blood Pressure Non-Invasive 57 mmHg mmHg 05/14/2022 8:30 EDT Temperature (Route Not Specified) 36 DegC DegC Heart Rate Monitored 82 bpm bpm Respiratory Rate - Anes 0 br/min br/min Systolic Blood Pressure Non-Invasive 100 mmHg mmHg Diastolic Blood Pressure Non-Invasive 60 mmHg mmHg 05/14/2022 8:25 EDT Heart Rate Monitored 80 bpm bpm Respiratory Rate - Anes 0 br/min br/min Systolic Blood Pressure Non-Invasive 103 mmHg mmHg Diastolic Blood Pressure Non-Invasive 58 mmHg mmHg 05/14/2022 7:11 EDT Temperature Temporal Artery 37.4 DegC Peripheral Pulse Rate 75 bpm Respiratory Rate 16 br/min Systolic Blood Pressure Non-Invasive 112 mmHg Diastolic Blood Pressure Non-Invasive 84 mmHg Blood Pressure Method Automatic Blood Pressure Location Left arm Blood Pressure Cuff Size Small , Measurements from flowsheet . Mental status: alert & oriented x 4. Respiratory function: respirations are non-labored. Respiratory support: none. CV function: Normal rate. Cardiovascular support: none. Pain. Nausea status: see nursing documentation of medications. Postoperative hydration status: within normal limits. Digitally Signed by GONZALO MCKEON on 05/14/2022 11:[address] [facility] 05-14-2022 Anesthesiology Consult note Patient: BUCK LONG Age: 41 years Sex: Female : 1980 Associated Diagnoses: None Author: GONZALO MCKEON Preoperative Information Time of last food or liquid consumption: 05/14/2022 00:00:00 Anesthesia history Patient's history: negative. Family's history: negative. Health Status Allergies: Allergic Reactions (Selected) Severity Not Documented Keflex- Intractable vomiting., Allergies (1) ActiveReaction Keflexintractable vomiting Current medications: (Selected) Inpatient Medications Ordered Cleocin Phosphate: 900 mg, 50 mL, 100 mL/hr, IV Piggyback, PREOP pharm LR 1,000 mL: 125 mL/hr, Intravenous, Stop: 05/14/22 23:59:00 EDT Documented Medications Documented Clindesse 2% vaginal cream: 1 appl, Vaginal, Once, 0 Refill(s) phenazopyridine 200 mg oral tablet: 200 mg, 1 tab(s), Oral, qHS, for 2 day(s), 4 tab(s), 0 Refill(s), Medications (2) Active Scheduled: (1) clindamycin PMX 900 mg 50 mL, IV Piggyback, PREOP pharm Continuous: (1) Lactated Ringers 1,000 mL 1,000 mL, Intravenous, 125 mL/hr PRN: (0) Problem list: Active Problems (1) No Chronic Problems Histories Past Medical History: No active or resolved past medical history items have been selected or recorded. Family History: Hypertension Mother Atrial fibrillation Father Procedure history: Surgical removal of wisdom tooth ([id number]). Social History Social & Psychosocial Habits Alcohol 04/30/2022 Use: Current Frequency: 1-2 times per month Substance Abuse 04/30/2022 Use: Never Tobacco 04/30/2022 Tobacco Use: Former smoker, quit more Type: Cigarettes Number of years: 5 Home/Environment 04/30/2022 Domestic Concerns None Living situation: Home/Independent Primary Dealer Relationship Manager: Self Current Home Treatments None Special Services and Community Resources None Marital Status of Patient if Patient Independent Adult: Unmarried Nutrition/Health 04/30/2022 Type of diet: Regular Appetite Good Eating Difficulties None . Physical Examination Vital Signs 05/14/2022 8:40 EDT Heart Rate Monitored 94 bpm bpm Respiratory Rate - Anes 10 br/min br/min Systolic Blood Pressure Non-Invasive 92 mmHg mmHg Diastolic Blood Pressure Non-Invasive 55 mmHg mmHg 05/14/2022 8:35 EDT Heart Rate Monitored 91 bpm bpm Respiratory Rate - Anes 12 br/min br/min Systolic Blood Pressure Non-Invasive 91 mmHg mmHg Diastolic Blood Pressure Non-Invasive 57 mmHg mmHg 05/14/2022 8:30 EDT Heart Rate Monitored 82 bpm bpm Respiratory Rate - Anes 0 br/min br/min Systolic Blood Pressure Non-Invasive 100 mmHg mmHg Diastolic Blood Pressure Non-Invasive 60 mmHg mmHg 05/14/2022 8:25 EDT Heart Rate Monitored 80 bpm bpm Respiratory Rate - Anes 0 br/min br/min Systolic Blood Pressure Non-Invasive 103 mmHg mmHg Diastolic Blood Pressure Non-Invasive 58 mmHg mmHg 05/14/2022 7:11 EDT Temperature Temporal Artery 37.4 DegC Peripheral Pulse Rate 75 bpm Respiratory Rate 16 br/min Systolic Blood Pressure Non-Invasive 112 mmHg Diastolic Blood Pressure Non-Invasive 84 mmHg Blood Pressure Method Automatic Blood Pressure Location Left arm Blood Pressure Cuff Size Small Vital Signs(last 24 hrs) Last Charted Heart Rate [id number] bpm (MAY 14 08:40) Resp Rate 16 br/min (MAY 14 07:11) SBP92 mmHg (MAY 14 08:40) DBP55 mmHg (MAY 14 08:40) Measurements from flowsheet : Measurements 05/14/2022 7:11 EDT Height 160 cm Admission Weight 63 kg Weight Method Stated Norman Body Weight 52.38 kg Pain assessment: Pain Assessment 05/14/2022 7:11 EDT Primary Pain Intensity 0 Pain Scale Type 0-10 Pain scale . General: Alert and oriented. Airway: Normal temporomandibular joint mobility, Normal mouth, Normal neck range of motion. Mallampati classification: I (soft palate, fauces, uvula, pillars visible). Dentition Evaluation: Denies loose/chipped teeth. Respiratory: Respirations are non-labored. Cardiovascular: Normal rate. Neurologic: Alert, Oriented. Review / Management Results review: No qualifying data available , Lab results 05/14/2022 8:48 EDT SN - CTm - Surgery Start 05/14/2022 8:48 05/14/2022 8:48 EDT SN - CAt - Case Attendee SN - CAt - Case Attendee SN - CAt - Role Performed Medical Student 05/14/2022 8:40 EDT Heart Rate Monitored 94 bpm bpm Respiratory Rate - Anes 10 br/min br/min Systolic Blood Pressure Non-Invasive 92 mmHg mmHg Diastolic Blood Pressure Non-Invasive 55 mmHg mmHg Oxygen Saturation 99.9 % % Set Rate Anes 10 br/min br/min 05/14/2022 8:35 EDT Heart Rate Monitored 91 bpm bpm Respiratory Rate - Anes 12 br/min br/min Systolic Blood Pressure Non-Invasive 91 mmHg mmHg Diastolic Blood Pressure Non-Invasive 57 mmHg mmHg Oxygen Saturation 98.8 % % Set Rate Anes 12 br/min br/min 05/14/2022 8:30 EDT Heart Rate Monitored 82 bpm bpm Respiratory Rate - Anes 0 br/min br/min Systolic Blood Pressure Non-Invasive 100 mmHg mmHg Diastolic Blood Pressure Non-Invasive 60 mmHg mmHg Oxygen Saturation 100 % % Set Rate Anes 12 br/min br/min 05/14/2022 8:25 EDT Heart Rate Monitored 80 bpm bpm Respiratory Rate - Anes 0 br/min br/min Systolic Blood Pressure Non-Invasive 103 mmHg mmHg Diastolic Blood Pressure Non-Invasive 58 mmHg mmHg Oxygen Saturation 100 % % 05/14/2022 8:01 EDT SN - TDC - Device Type CATH HERNANDEZ 16FR 5CC BIOCATH 12/CA [id number] SN - TDC - Location URETHRA SN - TDC - DC'd at End of Case Yes 05/14/2022 7:58 EDT SN - Proc - Anesthesia Type General SN - Proc - Actual Procedure VAGINAL NATURAL ORFICE TRANSLUMINAL ENDOSCOPIC SURGERY HYSTERECTOMY, BILATERAL SALPINGECTOMY, ANTERIOR REPAIR AND DIAGNOSTIC CYSTOSCOPY 05/14/2022 7:58 EDT SN - SP - Prep Agents Betadine Scrub, Betadine Solution, Chloraprep SN - SP - HR - Method N/A 05/14/2022 7:57 EDT SN - PP - Body Position Supine Standard Intra-op 05/14/2022 7:55 EDT SN - PTCare - Anti-thromboembolism Marla Sequential Compression Device (SCD) 05/14/2022 7:55 EDT SN - Assess - LOC Alert, Awake SN - Assess - Orientation Oriented X 3 SN - Assess - Post-op Skin Integrity Intact/Dry 05/14/2022 7:54 EDT SN - ME - Medication VASOPRESSIN 20U/ML SN - ME - Medication 0.25% BUPIVACAINE 75MG/30ML SN - ME - Route of Administration Local SN - ME - Route of Administration Local SN - ME - By (Single) SN - ME - By (Single) SN - ME - By (Single) SN - ME - By (Single) 05/14/2022 7:52 EDT SN - GCD - Post-operative Diagnosis ABNORMAL UTERINE AND VAGINAL BLEEDING, CYSTOCELE, DYSURIA SN - GCD - Case Level Level 5 05/14/2022 7:51 EDT SN - CAt - Case Attendee SN - CAt - Case Attendee SN - CAt - Case Attendee SN - CAt - Case Attendee SN - CAt - Case Attendee SN - CAt - Case Attendee SN - CAt - Case Attendee SN - CAt - Case Attendee SN - CAt - Case Attendee SN - CAt - Case Attendee SN - CAt - Case Attendee SN - CAt - Case Attendee SN - CAt - Role Performed Primary Surgeon SN - CAt - Role Performed VP CLINICAL RESEARCH SN - CAt - Role Performed Science Faculty Member 1 SN - CAt - Role Performed Productivity Engineer 1 SN - CAt - Role Performed Scrub 1 SN - CAt - Role Performed Productivity Engineer 2 05/14/2022 7:44 EDT SN - Preop - CTm Pt Ready for OR/Proced 05/14/2022 7:39 05/14/2022 7:43 EDT Antecubital Left 05/14/2022 20 gauge Peripheral IV Activity: Insert new site Peripheral IV Dressing Condition: Clean, Dry, Intact Peripheral IV Dressing Activity: Applied, Transparent dressing Peripheral IV Line Status/Patency: Flushes easily Peripheral IV Line Care: Secured with tape Peripheral IV Site Condition: No complications Peripheral IV Equipment: Extension set, PRN Adaptor Peripheral IV Number of Attempts: 1 05/14/2022 7:36 EDT Lactated Ringers Injection Begin Bag 1,000 mL mL 05/14/2022 7:24 EDT Test Urine Negative test (u) int test (u) int QC PRGUN Negative QC PRGUP Positive 05/14/2022 7:11 EDT Designated Person #1 We May Share RANDALL Clemons [phone] Designated Person #1 Relationship Friend Designated Person #2 We May Share RANDALL Ochoa [phone] Designated Person #2 Relationship Significant other Privacy Restrictions Requested None Height 160 cm Admission Weight 63 kg Weight Method Stated Norman Body Weight 52.38 kg Temperature Temporal Artery 37.4 DegC Peripheral Pulse Rate 75 bpm Respiratory Rate 16 br/min Systolic Blood Pressure Non-Invasive 112 mmHg Diastolic Blood Pressure Non-Invasive 84 mmHg Blood Pressure Method Automatic Blood Pressure Location Left arm Blood Pressure Cuff Size Small Primary Pain Intensity 0 Pain Scale Type 0-10 Pain scale Respirations Unlabored Respiratory Pattern Regular Oxygen Therapy Room air Oxygen Saturation 100 % Abdomen Description Non-distended, Soft Bowel Sounds All Quadrants Present Urinary Elimination Voiding, no difficulties Status No, per patient Skin Integrity Intact IV Present Present Neurological Symptoms Patient denies Extremity Movement Equal Characteristics of Speech Clear Level of Consciousness Alert Affect/Behavior Appropriate Orientation Oriented x 4 Sensory Deficits None Sleep Apnea Snore No Sleep Apnea Tired No Sleep Apnea Obstruction No Sleep Apnea Pressure No Sleep Apnea BMI No Sleep Apnea Age No Sleep Apnea Neck No Sleep Apnea Gender No Sleep Apnea Score 0 High Risk for Sleep Apnea No Diagnosed With Sleep Apnea No Advanced Directives No - refuses information Infectious Disease Symptoms Patient states no symptoms Infectious Disease Recent Exposure No Alcohol and Drug Use No Employee of Institutional Living No Health Care Employee No History of Exposure to TB No History of Positive Chest X-Ray for TB No History of Positive TB Skin Test No Homeless No Known Immunosuppression No Recent Immigrant No Resident of Institutional Living No Bloody Sputum No Fatigue No Fever No Loss of Appetite No Night Sweats No Persistent Cough > 3 Weeks No Weight Loss No Allergies Yes Lime Spreader On Yes Patient Dressed In Hospital gown Pre-op Preparation Glasses removed CHG Skin Prep No History & Physical Update On Chart Yes History & Physical On Chart Yes Obstructive Sleep Apnea Assess Completed Yes Ed-Allergies Verbalizes/Nonverbally indicates understanding Safety Brochure Information Reviewed Yes Sahra Paynecome Video Viewed No Barriers to Learning None evident Teaching Method Explanation Teaching Evaluation No further teaching needed Preferred Written Language Gu[place]ian Preferred Spoken Language [place]ian Surgical Site Infection Prevention SSI FAQ provided, Hand hygiene Post op Activity Education Up ad enedelia Ed-Circulation Verbalizes/Nonverbally indicates understanding Ed-Constipation Verbalizes/Nonverbally indicates understanding Ed-Ice Application Verbalizes/Nonverbally indicates understanding Ed-Infection Signs/Symptoms Verbalizes/Nonverbally indicates understanding Ed-Tubes/Drains/IV's Verbalizes/Nonverbally indicates understanding Ed-Encourage Hydration Verbalizes/Nonverbally indicates understanding Edu-Bathing Verbalizes/Nonverbally indicates understanding Information Given by Patient Patient's Current Physicians Patient's Current Physicians Discharge To, Anticipated Home with family care SCD On/Re-applied bilateral knee high Standard Safety ID band on, Allergy Band on, Call device within reach, Bed in low position, Wheels locked, Visitor at bedside, Safety level maintained Prev Test Positive/Diagnosis w/COVID-19 Yes Previous COVID-19 Positive Date 09/2021 Current Quarantine/Isolated any Illness No Any Contact with Sick Animals/Birds No Traveled Anywhere in Last 30 Days No Allergy Band on and Verified Yes Patient ID Band on and Verified Yes Implants Verified No Pacemaker/AICD Verified No Last Fluid Intake 05/13/2022 21:00 Last Food Intake 05/13/2022 18:00 Last Void 05/14/2022 7:17 Lost Weight Unintentionally Recently No Eat Poorly Due to Decreased Appetite No Total MST Score 0 No Personal Devices, Patient Valuables Glasses Anesthesia/Transfusions None Admission Note-Nursing Same Day Patient History 05/14/2022 7:00 EDT SN - Preop - CTm Pt in SDS Room 05/14/2022 7:00 . Assessment and Plan [place] [employer] (ASA) physical status classification: Class I. Anesthetic Preoperative Plan Anesthetic technique: General. Informed consent: signed by patient. Digitally Signed by GONZALO MCKEON APRN-BJ on 05/14/2022 08:[address] [facility] 09-12-2021 Note HNO ID: [id number] Author: Mary Vazquez APRN.SHEEP HERDER Service: ? Author Type: Nurse Practitioner Type: Progress Notes Filed: 09/12/2021 8:08 AM Note Text: Female Pelvic Medicine AND Reconstructive Surgery Follow-Up Buck Long is a 40 year old female, who presents for an initial pessary fitting. Last visit 08/20/[address] Suarez POP-Q: Prolapse Noted: Yes Aa = 0 Ba = 0 C = -9.0 gh = 3.5 pb = 3.5 tvl = 11 Ap = -1.5 Bp = -1.5 D = -10 History since last visit: States biggest symptom is feeling like she doesn't empty bladder well. And she can't jump without leaking. 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 Mary Vazquez APRN.SHEEP HERDER [employer] Super[employer] offered: Patient declines. OBJECTIVE: Ht 5' 3 (1.60m) Wt 145 lb (65.8kg) LMP 08/09/2021 BMI 25.69 kg/(m2). General: Well appearing, alert, in no acute distress, well-hydrated, well nourished. Abdomen: Deferred Pelvic: Ext. Genitalia: No lesions or other abnormalities Vagina: normal epithelium Patient fit with a #4 ring with support and knob pessary. The pessary was positioned properly within the vagina. The patient reported no discomfort and the pessary stayed in placed with ambulating and using the restroom. She was able to remove and replace the pessary without difficulty. Plan: 1. Encounter for fitting and adjustment of pessary - Initial pessary fitting. Pessary care discussed. 2. Cystocele, midline - As above #1. 3. Incomplete bladder emptying - As above #1. 4. ROSELYN (stress urinary incontinence, female) - As above #1. Mary Vazquez APRN.YARIEL [facility] 09-12-2021 Instructions Mary Vazquez APRN.CNP - 09/12/2021 7:54 AM EDT To call with pain/discomfort, vaginal bleeding or difficulty emptying bladder or bowels. Follow-up in 6 months. documented in this encounter [facility] 09-12-2021 History of Presen t illness Narrative Female Pelvic Medicine & Reconstructive Surgery Follow-Up Buck Long is a 40 year old female, who presents for an initial pessary fitting. Last visit 08/20/[address] Suarez POP-Q: Prolapse Noted: Yes Aa = 0 Ba = 0 C = -9.0 gh = 3.5 pb = 3.5 tvl = 11 Ap = -1.5 Bp = -1.5 D = -10 History since last visit: States biggest symptom is feeling like she doesn't empty bladder well. And she can't jump without leaking. 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 Mary Vazquez APRN.SHEEP HERDER [employer] Super[employer] offered: Patient declines. OBJECTIVE: Ht 5' 3 (1.60m) Wt 145 lb (65.8kg) LMP 08/09/2021 BMI 25.69 kg/(m^2). General: Well appearing, alert, in no acute distress, well-hydrated, well nourished. Abdomen: Deferred Pelvic: Ext. Genitalia: No lesions or other abnormalities Vagina: normal epithelium Patient fit with a #4 ring with support and knob pessary. The pessary was positioned properly within the vagina. The patient reported no discomfort and the pessary stayed in placed with ambulating and using the restroom. She was able to remove and replace the pessary without difficulty. Plan: 1. Encounter for fitting and adjustment of pessary - Initial pessary fitting. Pessary care discussed. 2. Cystocele, midline - As above #1. 3. Incomplete bladder emptying - As above #1. 4. ROSELYN (stress urinary incontinence, female) - As above #1. Mary Vazquez APRN.SHEEP HERDER documented in this encounter [facility] 08-20-2021 Note HNO ID: [id number] Author: Cielo Suarez MD Service: ? Author Type: Physician Type: Progress Notes Filed: 08/20/2021 10:05 AM Note Text: Female Pelvic Medicine AND Reconstructive Surgery Consult CHIEF COMPLAINT: Buck Long is a 40 year old female who presents for consultation requested by Handy Mcpherson PA-C for an opinion regarding cystocele and PVR 104 ml. HISTORY OF PRESENT ILLNESS: Pt reports ROSELYN since she had children. She has had worsening urinary frequency and urgency over the past year. She has been experiencing frequent UTI-like symptoms including dysuria, worsening urgency, and voiding frequent small amounts. She has tried increasing fluid intake, Azo, and probiotics. Symptoms seem to worsen around her period, burning sensation throughout abdomen and spasms. 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 No (0) Usually experience heaviness or dullness in the pelvic area? Yes, somewhat bothersome (2) Usually have a bulge or something falling out that you can see or feel in your vaginal area? No (0) Ever have to push on the vagina or around the rectum to have or complete a bowel movement? No (0) Usually experience a feeling of incomplete bladder emptying? Yes, moderately bothersome (3) Ever have to push up on a bulge in the vaginal area with your fingers to start or complete urination? No (0) Feel you need to strain too hard to have a bowel movement? Yes, somewhat bothersome (2) Feel you have not completely emptied your bowels at the end of a bowel movement? No (0) Usually lose stool beyond your control if your stool is well formed? No (0) Usually lose stool beyond your control if your stool is loose? No (0) Usually lose gas from the rectum beyond your control? No (0) Usually have pain when you pass your stool? No (0) Experience a strong sense of urgency and have to paul to the bathroom to have a bowel movement? No (0) Does part of your bowel ever pass through the rectum and bulge outside during or after a bowel movement? No (0) Usually experience frequent urination? Yes, moderately bothersome (3) Usually experience urine leakage associated with a feeling of urgency, that is, a strong sensation of needing to go to the bathroom? No (0) Usually experience urine leakage related to coughing, sneezing or laughing? Yes, moderately bothersome (3) Usually experience small amounts of urine leakage (that is, drops)? No (0) Usually experience difficulty emptying your bladder? Yes, moderately bothersome (3) Usually experience pain or discomfort in the lower abdomen or genital region? No (0) Do you have pain associated with your prolapse (not pressure or fullness) No PAST SURGICAL HISTORY Procedure Laterality Date - NONE PAST MEDICAL HISTORY Diagnosis Date - NONE FAMILY HISTORY Problem Relation Age of Onset - Hypertension Mother - Heart Father - No Known Problems Brother - No Known Problems Brother - Stroke Maternal Grandmother - Stroke Maternal Grandfather - Diabetes Maternal Grandfather - Dementia Paternal Grandmother - Heart Paternal Grandmother - No Known Problems Paternal Grandfather - Breast Cancer Maternal Aunt - Ovarian cancer Maternal Aunt Current Outpatient Medications Medication Sig - MULTIVITAMIN ORAL Take by mouth. - fluticasone propionate (FLONASE NASAL) Use in the nose. - DESOGEN 0.15 MG-30 MCG TAB Take one(1) tablet daily. (Patient not taking: Reported on 03/14/2021) No current facility-administered medications for this visit. 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 Skin: Negative for rash or itching. Psychiatric: Negative for depression. Reports normal stress. Neurologic: Negative for new headache or syncope. Endocrine: Negative for sweating, cold intolerance or heat intolerance. Cardiovascular: Negative for recent chest pain, chest pressure or chest discomfort. Hematologic/Lymphatic: Negative for easy bruising or excessive bleeding. Respiratory: Negative for wheezi (more content not included)... [facility] 08-20-2021 History of Presen t illness Narrative Female Pelvic Medicine & Reconstructive Surgery Consult CHIEF COMPLAINT: Buck Long is a 40 year old female who presents for consultation requested by Handy Mcpherson PA-C for an opinion regarding cystocele and PVR 104 ml. HISTORY OF PRESENT ILLNESS: Pt reports ROSELYN since she had children. She has had worsening urinary frequency and urgency over the past year. She has been experiencing frequent UTI-like symptoms including dysuria, worsening urgency, and voiding frequent small amounts. She has tried increasing fluid intake, Azo, and probiotics. Symptoms seem to worsen around her period, burning sensation throughout abdomen and spasms. 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 No (0) Usually experience heaviness or dullness in the pelvic area? Yes, somewhat bothersome (2) Usually have a bulge or something falling out that you can see or feel in your vaginal area? No (0) Ever have to push on the vagina or around the rectum to have or complete a bowel movement? No (0) Usually experience a feeling of incomplete bladder emptying? Yes, moderately bothersome (3) Ever have to push up on a bulge in the vaginal area with your fingers to start or complete urination? No (0) Feel you need to strain too hard to have a bowel movement? Yes, somewhat bothersome (2) Feel you have not completely emptied your bowels at the end of a bowel movement? No (0) Usually lose stool beyond your control if your stool is well formed? No (0) Usually lose stool beyond your control if your stool is loose? No (0) Usually lose gas from the rectum beyond your control? No (0) Usually have pain when you pass your stool? No (0) Experience a strong sense of urgency and have to paul to the bathroom to have a bowel movement? No (0) Does part of your bowel ever pass through the rectum and bulge outside during or after a bowel movement? No (0) Usually experience frequent urination? Yes, moderately bothersome (3) Usually experience urine leakage associated with a feeling of urgency, that is, a strong sensation of needing to go to the bathroom? No (0) Usually experience urine leakage related to coughing, sneezing or laughing? Yes, moderately bothersome (3) Usually experience small amounts of urine leakage (that is, drops)? No (0) Usually experience difficulty emptying your bladder? Yes, moderately bothersome (3) Usually experience pain or discomfort in the lower abdomen or genital region? No (0) Do you have pain associated with your prolapse (not pressure or fullness) No PAST SURGICAL HISTORY Procedure Laterality Date NONE PAST MEDICAL HISTORY Diagnosis Date NONE FAMILY HISTORY Problem Relation Age of Onset Hypertension Mother Heart Father No Known Problems Brother No Known Problems Brother Stroke Maternal Grandmother Stroke Maternal Grandfather Diabetes Maternal Grandfather Dementia Paternal Grandmother Heart Paternal Grandmother No Known Problems Paternal Grandfather Breast Cancer Maternal Aunt Ovarian cancer Maternal Aunt Current Outpatient Medications Medication Sig MULTIVITAMIN ORAL Take by mouth. fluticasone propionate (FLONASE NASAL) Use in the nose. DESOGEN 0.15 MG-30 MCG TAB Take one(1) tablet daily. (Patient not taking: Reported on 03/14/2021) No current facility-administered medications for this visit. 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 Skin: Negative for rash or itching. Psychiatric: Negative for depression. Reports normal stress. Neurologic: Negative for new headache or syncope. Endocrine: Negative for sweating, cold intolerance or heat intolerance. Cardiovascular: Negative for recent chest pain, chest pressure or chest discomfort. Hematologic/Lymphatic: Negative for easy bruising or excessive bleeding. Respiratory: Negative for wheezing, shortness of breath or persistent cough. Gastrointestinal: Negative for persistent abdominal pain. Negative for anorexia, persistent nausea and/or vomiting. Musculoskeletal: Negative for muscle pain, back pain, joint pain or stiffness. I have confirmed and edited as necessary, the PFSH and ROS obtained by others. Cielo Suarez MD [employer] Supervisor offered: Patient accepts, visit chaperoned by Soledad Mascorro LPN. OBJECTIVE: Ht 5' 3 (1.60m) Wt 145 lb (65.8kg) LMP 08/09/2021 BMI 25.69 kg/(m^2). Physical Exam Constitutional: BMI - Body mass index is 25.69 kg/m . General Appearance: Well appearing, alert, in no acute distress, well-hydrated, well nourished. Skin: Skin color, texture, turgor normal, no suspicious rashes or lesions Lungs: Unlabored on room air Heart: Not examined Breasts: Deferred Abdomen: Abdomen soft, non-tender, No masses, organomegaly Pelvic: External Genitalia: No lesions or other abnormalities Vagina: Ant Wall - Cystocele Stage II ; Post Wall - Rectocele Stage I Cervix / Vandervoort - Stage l prolapse POP-Q: Prolapse Noted: Yes Aa = 0 Ba = 0 C = -9.0 gh = 3.5 pb = 3.5 tvl = 11 Ap = -1.5 Bp = -1.5 D = -10 Vaginal epithelium: WNL Cervix: Normal Urethra: Hypermobile, Supine cough stress test negative Bimanual: Normal size anteverted uterus, No tenderness, No masses Rectovaginal: Deferred Levator Ani Contraction: 1+ Levator Ani Tone: normal Levator Ani Tenderness: Yes, mild left Saddle Sensory Exam (S2-4): normal Urine dip - voided: small blood The urethra was prepped with betadine. A lubricated 14F catheter was inserted and the postvoid residual urine was collected. The PVR was 160 ml. Urine dip - straight cath: small blood IMPRESSION: Buck Long is a 40 year old female with stage 2 cystocele, incomplete bladder emptying, urinary urgency and frequency, ROSELYN, abnormal urine dip. PLAN: 1. Cystocele, midline - Exam findings reviewed and discussed. Suspect stage 2 cystocele is contributing to incomplete bladder emptying and worsening urinary urgency/frequency. Discussed trial of pessary vs surgical management with cystocele repair. Pt is interested in pessary trial. If urinary symptoms improve with pessary trial, she may consider surgical management. If she undergoes surgery, she may be interested in coordinating with hysterectomy for other indications (dysmenorrhea). - Schedule pessary fitting with Mary Vazquez NP. Follow up after pessary trial to review symptoms. 2. Incomplete bladder emptying - As above 3. Urinary urgency - As above 4. Urinary frequency - As above 5. ROSELYN (stress urinary incontinence, female) - We discussed the options for treatment of stress urinary incontinence including pelvic floor muscle exercises/pelvic floor physical therapy, pessary, urethral bulking, and surgery. For surgical options we discussed the synthetic midurethral sling and other surgical procedures without mesh (fascial sling, [place]). - Buck desires to proceed with pessary trial as above. Urodynamics would be indicated prior to consideration of surgical management given complex presentation as above. 6. Abnormal urine findings - URINE CULTURE - URINALYSIS, WITH MICROSCOPIC Medical Decision Making: Problems: Moderate: 2+ stable chronic illnesses Data: Unique test result(s) reviewed: 3+ Unique test(s) ordered: 2 Risk: Low: Low risk from testing/treatment Medical Decision Making Level: 4 - Moderate My final recommendations will be communicated back to the requesting physician by way of shared Medical record or letter via US mail. Cielo Suarez MD documented in this encounter [facility] 08-20-2021 Instructions Cielo Suarez MD - 08/20/2021 9:51 AM EDT Schedule pessary fitting with Mary Vazquez NP documented in this encounter [facility] 08-19-2021 Miscellaneous Notes Patient has been contacted via: Phone To reschedule appointment with Provider: Alcides Date of appointment: 08/19/21 Reason: No Show Attempt: First Attempt Patient call back number given: [phone] Any additional info: pt rescheduled documented in this encounter [facility] 06-19-2021 Miscellaneous Notes Patient requested to be scheduled with Dr. Suarez and has an appointment on 07/16/21. Caroline Carpio PSS Left vm needs an appt with Dr. Ruff re: cystocele. She was referred by Shekhar Mcpherson. Alla documented in this encounter [facility] 06-17-2021 History of Presen t illness Narrative Images from the original note were not included. PATIENT INFO: Buck Long 40 year old ( ) REFERRING PROVIDER: Self PCP: Rosalva Tabor MD June 17, 2021 HPI: Buck Long 40 year old female is here today for discussion and evaluation of symptoms of not emptying her bladder feels like OAB, however she was found to have a cystocele on recent FOXING CLOSER exam and with a PVR of 104 ml, so will not use antispasmodics at this time I have discussed that she may need to see female urology After filling out a voiding diary and have referred to Dr. Ruff LUTS: Obstructive - weak stream: no, hesitancy: no, Intermittency: no, Double voiding no post-void dribbling: no incomplete emptying: yes Irritative - NTF yes Urgency yes Frequency yes Dysuria no Incontinence no Gross Hematuria no Microscopic Hematuria no Other symptoms: LABS: No results found for: TESTOST No results found for: TESTFREE No results found for: PSA No results found for: HCT MEDICATIONS: MULTIVITAMIN ORAL Take by mouth. fluticasone propionate (FLONASE NASAL) Use in the nose. DESOGEN 0.15 MG-30 MCG TAB Take one(1) tablet daily. PAST MEDICAL HISTORY: PAST MEDICAL HISTORY Diagnosis Date NONE PAST SURGICAL HISTORY: PAST SURGICAL HISTORY Procedure Laterality Date NONE FAMILY HISTORY: FAMILY HISTORY Problem Relation Age of Onset Hypertension Mother Heart Father No Known Problems Brother No Known Problems Brother Stroke Maternal Grandmother Stroke Maternal Grandfather Diabetes Maternal Grandfather Dementia Paternal Grandmother Heart Paternal Grandmother No Known Problems Paternal Grandfather Breast Cancer Maternal Aunt Ovarian cancer Maternal Aunt SOCIAL HISTORY: Social Connections: Not on file REVIEW OF SYSTEMS: GENERAL: No fever, chills, weight loss, or fatigue. ENMT: Negative CARDIOVASCULAR:NO CHEST PAIN, PALPITATIONS, ANKLE EDEMA RESPIRATORY: No chronic cough, wheezing, dyspnea, hemoptysis. GENITOURINARY: SEE HPI MUSCULOSKELETAL:NO CHRONIC BACK PAIN, ARTHRITIS, CHRONIC NECK PAIN SKIN: NO VARICOSE VEINS, RASH, ABNORMAL ITCHING HEME/LYMPH/IMMUNE:Negative for prolonged bleeding, bruising easily or swollen nodes NEUROLOGICAL: NO HEADACHES, NUMBNESS, SEIZURES, STROKE DIABETES: No All other systems reviewed and are negative PHYSICAL EXAMINATION: Blood pressure 102/68, pulse 86, height 160 cm (5' 3), weight 68 kg (150 lb), last menstrual period 05/09/2021. GENERAL: WNL nutrition, no deformities, healthy appearing NEURO: Awake, alert and oriented x 3 and Normal gait PSYCH: No signs of depression, anxiety, or agitation ENMT (Ear, Nose, Mouth, Throat): No masses, adenopathy, icterus. Thyroid nonpalpable RESP: NL effort, no retractions or purse-lip breathing. CV: No extremity swelling, varices, edema, pallor, erythema GASTROINTESTINAL: Soft, nontender, nondistended, no masses. HERNIAS: None SKIN: No rash, lesions No palpable lymphadenopathy MUSCULOSKELETAL: Extremities normal. No deformities, edema, clubbing or skin discoloration. PROBLEM LIST REVIEW: Yes LABS: Results for orders placed or performed in visit on 06/17/21 UA DIP, URINE (POC) Result Value Ref Range GLUCOSE UA (POCT) Negative Negative mg/dL BILIRUBIN UA (POCT) Negative Negative KETONE UA (POCT) Negative Negative mg/dL SPECIFIC GRAVITY UA (POCT) 1.010 1.005 - 1.030 HEMOGLOBIN/BLOOD UA (POCT) Small (A) Negative PH UA (POCT) 7.0 4.5 - 8.0 PROTEIN UA (POCT) Negative Negative mg/dL UROBILINOGEN UA (POCT) 0.2 Normal E.U./dL NITRITE UA (POCT) Negative Negative LEUKOCYTES UA (POCT) Small (A) Negative COLOR UA (POCT) Yellow CLARITY UA (POCT) Clear PROCEDURES: PVR: 104 ml IMAGING: IMPRESSION/PLAN: 1. Bladder Spasm with PVR of 104 ml and known cystocele - UA DIP, URINE (POC) - US MSR POST-VOID RESID URINE > refer to female urology soon I spent a total of 30 minutes on the date of the service which included preparing to see the patient, face to face patient care, completing clinical documentation, obtaining and/or reviewing separately obtained history, performing a medically appropriate examination, counseling and educating the patient/family/caregiver, ordering medications, tests, or procedures, and care coordination. ROBERTO Gillis, [place], [place] Patient's post-void bladder scan: 104 ML. Amena Montaño documented in this encounter [facility] 05-30-2021 History of Presen t illness Narrative Buck is a 40 year old who presents for an annual gynecologic exam with complaints. She states that she has been having some bladder issues where she feels pain and pressure with voiding. She has concerns for a possible prolapse with a history of two vaginal births with baby's each weighing 8+ pounds. This usually occurs towards the end of menstruation. A few days after menstruation she will notice this pressure/pain. The pressure/pain does not worsen at the end of the day. Pain not worsened by certain foods or drinks. Increased urinary frequency as well that she has noticed since deliveries. Menses: cycles every 28 days and 7 days of flow. Contraception: vasectomy HPV vaccine: No Last Pap: 03/30/2005 normal HPV: negative History of abnormal pap: Yes. LEEP in 2010 Last mammogram: never Sexually active: Yes, no dyspareunia or bleeding with intercourse Diet: Balanced, fruit, yogurt, nuts, pasta, red meats Exercise: 6-7 times per week, 30 minutes, walking OB History No obstetric history on file. [employer] History LMP: 05/09/2021, Having periods Age at Menarche: Age at First : Age at Menopause: [employer] History Comments: Sexual Activity: Yes; Male Contraception: Vasectomy PAST MEDICAL HISTORY Diagnosis Date NONE PAST SURGICAL HISTORY Procedure Laterality Date NONE FAMILY HISTORY Problem Relation Age of Onset Hypertension Mother Heart Father No Known Problems Brother No Known Problems Brother Stroke Maternal Grandmother Stroke Maternal Grandfather Diabetes Maternal Grandfather Dementia Paternal Grandmother Heart Paternal Grandmother No Known Problems Paternal Grandfather Breast Cancer Maternal Aunt Ovarian cancer Maternal Aunt SOCIAL HISTORY Social History Tobacco Use Smoking status: Former Smoker Smokeless tobacco: Never Used Tobacco comment: quit 02/10/2005 Vaping Use Vaping Use: Never used Substance Use Topics Alcohol use: Yes Comment: occasional Drug use: No REVIEW OF SYSTEMS Abdomen: No abdominal pain, nausea, vomiting, diarrhea, or constipation. No bloating, early satiety, indigestion, or increased flatulence. Bladder: Positive for dysuria, urgency, stress incontinence, increased frequency; No hematuria or flank pain. Breast: No breast lumps, nipple d/c, overlying skin changes, redness or skin retraction. Allergies and current medication updated:Yes EXAM: BP 110/70 Ht 5' 3.25 (1.61m) Wt 146 lb 6.4 oz (66.4kg) LMP 05/09/2021 BMI 25.71 kg/(m^2). GENERAL: pleasant, female in no apparent distress HEENT: Normocephalic, atraumatic, mucus membranes moist and no lesions NECK: Supple, full range of motion, no adenopathy and thyroid normal DERMATOLOGY: Normal, without lesions, non-icteric and non-hirsute BREAST: soft, non-tender, symmetric, no dominant mass, normal nipple-areolar complex, no lymphadenopathy and no nipple discharge CHEST: Normal inspiratory effort ABDOMEN: soft, non-tender and no masses PELVIC: external genitalia normal, normal Bartholin's glands, urethra, [place]'s glands, no vulvar lesions, no cervical lesions, good support of uterus and cervix, grade 1 cystocele with valsalva, physiologic discharge present, normal appearing perineal body and perianal region BIMANUAL: uterus normal size, shape and consistency, no adnexal masses and non-tender RECTOVAGINAL: rectovaginal exam negative for any masses or nodularity. NEURO: exam grossly non-focal EXTREMITIES: normal ASSESSMENT/PLAN: 1) Health maintenance: Pap done with HPV. Mammogram starting age 40. Nutrition, exercise and routine health maintenance exams reviewed. Urinary/bladder symptoms. Check UA and urine cx. Recommend pelvic floor PT and referral placed. She will consider this. Referral also placed to urology. 2) Contraception: vasectomy. Contraceptive options reviewed and information provided. 3) STD screening: Declined STD check. 4) Follow up one year or sooner as needed Yvette Pearson DO documented in this encounter [facility] Evaluation + Plan note Future Appointments [facility] Evaluation note Diagnosis Encounter for gynecological examination (general) (routine) without abnormal findings- Primary Screening for cervical cancer Screening for malignant neoplasm of the cervix Encounter for screening for human papillomavirus (HPV) Special screening examination for human papillomavirus (HPV) Urinary frequency Pelvic floor dysfunction Pelvic muscle wasting Bladder pain Other symptoms involving urinary system [facility] Diagnosis Cystocele, unspecified (CODE)- Primary Dysuria OAB (overactive bladder) Hypertonicity of bladder documented in this encounter [facility] note* Diagnosis Cystocele, midline- Primary Incomplete bladder emptying Urinary urgency Urgency of urination Urinary frequency ROSELYN (stress urinary incontinence, female) Female stress incontinence Abnormal urine findings Other nonspecific finding on examination of urine documented in this encounter [facility] note* Diagnosis Encounter for fitting and adjustment of pessary- Primary Fitting and adjustment of other device Cystocele, midline Incomplete bladder emptying ROSELYN (stress urinary incontinence, female) Female stress incontinence documented in this encounter [facility] course Narrative No data available for this section [facility] Hospital Discharge instructions No data available for this section [facility] Progress note No data available for this section [facility] Summary Purpose Family History Breast Cancer Status:Active Comments:Materna l Aunt. Cerebrovascular Accident Status:Active Comment s:Maternal Grandmother. Coronary Artery Disease Status:Active Comments :Paternal Grandmother. father- afib Diabetes Mellitus Type II Status:Active Commen ts:Maternal Grandfather. Hypertension Status:Active Comments:Mother. Father. Ovarian Cancer Status:Active Comments:Materna l Aunt. Rheumatoid Arthritis Status:Active Comments:Mo ther. Breast Cancer Status:Active Comments:Materna l Aunt. Cerebrovascular Accident Status:Active Comment s:Maternal Grandmother. Coronary Artery Disease Status:Active Comments :Paternal Grandmother. father- afib Diabetes Mellitus Type II Status:Active Commen ts:Maternal Grandfather. Hypertension Status:Active Comments:Mother. Father. Ovarian Cancer Status:Active Comments:Materna l Aunt. Rheumatoid Arthritis Status:Active Comments:Mo ther. Breast Cancer Status:Active Comments:Materna l Aunt. Cerebrovascular Accident Status:Active Comment s:Maternal Grandmother. Coronary Artery Disease Status:Active Comments :Paternal Grandmother. father- afib Diabetes Mellitus Type II Status:Active Commen ts:Maternal Grandfather. Hypertension Status:Active Comments:Mother. Father. Ovarian Cancer Status:Active Comments:Materna l Aunt. Rheumatoid Arthritis Status:Active Comments:Mo ther. Breast Cancer Status:Active Comments:Materna l Aunt. Cerebrovascular Accident Status:Active Comment s:Maternal Grandmother. Coronary Artery Disease Status:Active Comments :Paternal Grandmother. father- afib Diabetes Mellitus Type II Status:Active Commen ts:Maternal Grandfather. Hypertension Status:Active Comments:Mother. Father. Ovarian Cancer Status:Active Comments:Materna l Aunt. Rheumatoid Arthritis Status:Active Comments:Mo ther. Breast Cancer Status:Active Comments:Materna l Aunt. Cerebrovascular Accident Status:Active Comment s:Maternal Grandmother. Coronary Artery Disease Status:Active Comments :Paternal Grandmother. father- afib Diabetes Mellitus Type II Status:Active Commen ts:Maternal Grandfather. Hypertension Status:Active Comments:Mother. Father. Ovarian Cancer Status:Active Comments:Materna l Aunt. Rheumatoid Arthritis Status:Active Comments:Mo ther. Breast Cancer Status:Active Comments:Materna l Aunt. Cerebrovascular Accident Status:Active Comment s:Maternal Grandmother. Coronary Artery Disease Status:Active Comments :Paternal Grandmother. father- afib Diabetes Mellitus Type II Status:Active Commen ts:Maternal Grandfather. Hypertension Status:Active Comments:Mother. Father. Ovarian Cancer Status:Active Comments:Materna l Aunt. Rheumatoid Arthritis Status:Active Comments:Mo ther. Breast Cancer Status:Active Comments:Materna l Aunt. Cerebrovascular Accident Status:Active Comment s:Maternal Grandmother. Coronary Artery Disease Status:Active Comments :Paternal Grandmother. father- afib Diabetes Mellitus Type II Status:Active Commen ts:Maternal Grandfather. Hypertension Status:Active Comments:Mother. Father. Ovarian Cancer Status:Active Comments:Materna l Aunt. Rheumatoid Arthritis Status:Active Comments:Mo ther. Breast Cancer Status:Active Comments:Materna l Aunt. Cerebrovascular Accident Status:Active Comment s:Maternal Grandmother. Coronary Artery Disease Status:Active Comments :Paternal Grandmother. father- afib Diabetes Mellitus Type II Status:Active Commen ts:Maternal Grandfather. Hypertension Status:Active Comments:Mother. Father. Ovarian Cancer Status:Active Comments:Materna l Aunt. Rheumatoid Arthritis Status:Active Comments:Mo ther. Breast Cancer Status:Active Comments:Materna l Aunt. Cerebrovascular Accident Status:Active Comment s:Maternal Grandmother. Coronary Artery Disease Status:Active Comments :Paternal Grandmother. father- afib Diabetes Mellitus Type II Status:Active Commen ts:Maternal Grandfather. Hypertension Status:Active Comments:Mother. Father. Ovarian Cancer Status:Active Comments:Materna l Aunt. Rheumatoid Arthritis Status:Active Comments:Mo ther. Breast Cancer Status:Active Comments:Materna l Aunt. Cerebrovascular Accident Status:Active Comment s:Maternal Grandmother. Coronary Artery Disease Status:Active Comments :Paternal Grandmother. father- afib Diabetes Mellitus Type II Status:Active Commen ts:Maternal Grandfather. Hypertension Status:Active Comments:Mother. Father. Ovarian Cancer Status:Active Comments:Materna l Aunt. Rheumatoid Arthritis Status:Active Comments:Mo ther. Breast Cancer Status:Active Comments:Materna l Aunt. Cerebrovascular Accident Status:Active Comment s:Maternal Grandmother. Coronary Artery Disease Status:Active Comments :Paternal Grandmother. father- afib Diabetes Mellitus Type II Status:Active Commen ts:Maternal Grandfather. Hypertension Status:Active Comments:Mother. Father. Ovarian Cancer Status:Active Comments:Materna l Aunt. Rheumatoid Arthritis Status:Active Comments:Mo ther. Breast Cancer Status:Active Comments:Materna l Aunt. Cerebrovascular Accident Status:Active Comment s:Maternal Grandmother. Coronary Artery Disease Status:Active Comments :Paternal Grandmother. father- afib Diabetes Mellitus Type II Status:Active Commen ts:Maternal Grandfather. Hypertension Status:Active Comments:Mother. Father. Ovarian Cancer Status:Active Comments:Materna l Aunt. Rheumatoid Arthritis Status:Active Comments:Mo ther. Breast Cancer Status:Active Comments:Materna l Aunt. Cerebrovascular Accident Status:Active Comment s:Maternal Grandmother. Coronary Artery Disease Status:Active Comments :Paternal Grandmother. father- afib Diabetes Mellitus Type II Status:Active Commen ts:Maternal Grandfather. Hypertension Status:Active Comments:Mother. Father. Ovarian Cancer Status:Active Comments:Materna l Aunt. Rheumatoid Arthritis Status:Active Comments:Mo ther. Breast Cancer Status:Active Comments:Materna l Aunt. Cerebrovascular Accident Status:Active Comment s:Maternal Grandmother. Coronary Artery Disease Status:Active Comments :Paternal Grandmother. father- afib Diabetes Mellitus Type II Status:Active Commen ts:Maternal Grandfather. Hypertension Status:Active Comments:Mother. Father. Ovarian Cancer Status:Active Comments:Materna l Aunt. Rheumatoid Arthritis Status:Active Comments:Mo ther. Breast Cancer Status:Active Comments:Materna l Aunt. Cerebrovascular Accident Status:Active Comment s:Maternal Grandmother. Coronary Artery Disease Status:Active Comments :Paternal Grandmother. father- afib Diabetes Mellitus Type II Status:Active Commen ts:Maternal Grandfather. Hypertension Status:Active Comments:Mother. Father. Ovarian Cancer Status:Active Comments:Materna l Aunt. Rheumatoid Arthritis Status:Active Comments:Mo ther. Breast Cancer Status:Active Comments:Materna l Aunt. Cerebrovascular Accident Status:Active Comment s:Maternal Grandmother. Coronary Artery Disease Status:Active Comments :Paternal Grandmother. father- afib Diabetes Mellitus Type II Status:Active Commen ts:Maternal Grandfather. Hypertension Status:Active Comments:Mother. Father. Ovarian Cancer Status:Active Comments:Materna l Aunt. Rheumatoid Arthritis Status:Active Comments:Mo ther. Breast Cancer Status:Active Comments:Materna l Aunt. Cerebrovascular Accident Status:Active Comment s:Maternal Grandmother. Coronary Artery Disease Status:Active Comments :Paternal Grandmother. father- afib Diabetes Mellitus Type II Status:Active Commen ts:Maternal Grandfather. Hypertension Status:Active Comments:Mother. Father. Ovarian Cancer Status:Active Comments:Materna l Aunt. Rheumatoid Arthritis Status:Active Comments:Mo ther. Breast Cancer Status:Active Comments:Materna l Aunt. Cerebrovascular Accident Status:Active Comment s:Maternal Grandmother. Coronary Artery Disease Status:Active Comments :Paternal Grandmother. father- afib Diabetes Mellitus Type II Status:Active Commen ts:Maternal Grandfather. Hypertension Status:Active Comments:Mother. Father. Ovarian Cancer Status:Active Comments:Materna l Aunt. Rheumatoid Arthritis Status:Active Comments:Mo ther. Advance Directives No Advanced Directives Records FoundNo Advanced Directives Records FoundNo Advanced Directives Records FoundNo Advanced Directives Records FoundNo Advanced Directives Records FoundNo Advanced Directives Records FoundNo Advanced Directives Records Found Reason for Referral Specialty Diagnoses / Procedures Referred By Contac t Referred To Contact Urology Diagnoses Urinary frequency Bladder pain Procedures CONSULT TO UROLOGY OFFICE/OUTPATIENT [facility] 60-74 MINUTES Yvette Pearson MD [address] [place] [address] Handy Mcpherson PA-C [address] [place] [address] Referral ID Status Reason Start Date Expiration Date Visits Requested Visits Authorized [id number] Pending Review PCP Requested Referral 05/30/2021 05/30/2022 1 1 Specialty Diagnoses / Procedures Referred By Contac t Referred To Contact [facility] Diagnoses Urinary frequency Pelvic floor dysfunction Procedures CONSULT TO PHYSICAL THERAPY PHYSICAL THERAPY EVALUATION HIGH COMPLEX 45 MINS Yvette Pearson MD [address] [facility] [place] [address] [facility] [address] [place] [address] Referral ID Status Reason Start Date Expiration Date Visits Requested Visits Authorized [id number] Pending Review Auto-Generat ed Referral 05/30/2021 05/30/2022 1 1 Additional Source Comments INFORMATION SOURCE (unrecogn ized section and content) DATE CREATED AUTHOR 08/21/2020 [facility] DATE CREATED AUTHOR AUTHOR'S ORGANIZ ATION 09/13/2021 [facility] DATE CREATED AUTHOR AUTHOR'S ORGANIZ ATION 12/02/2021 [facility] DATE CREATED AUTHOR AUTHOR'S ORGANIZ ATION 12/25/2021 [facility] DATE CREATED AUTHOR AUTHOR'S ORGANIZ ATION 10/07/2022 [facility] DATE CREATED AUTHOR AUTHOR'S ORGANIZ ATION 09/01/2024 [facility] DATE CREATED AUTHOR AUTHOR'S ORGANIZ ATION 09/02/2024 [facility] Source Comments (unrecognize d section and content) In the event this informatio n is protected by the Federal Confidentiality of Alcohol and Drug Abuse Patient Records regulations: The Federal rules restrict any use of the information to criminally investigate or prosecute any alcohol or drug abuse patient.[facility] the event this information is protected by the Federal Confidentiality of Alcohol and Drug Abuse Patient Records regulations: The Federal rules restrict any use of the information to criminally investigate or prosecute any alcohol or drug abuse patient.[facility] the event this information is protected by the Federal Confidentiality of Alcohol and Drug Abuse Patient Records regulations: The Federal rules restrict any use of the information to criminally investigate or prosecute any alcohol or drug abuse patient.[facility] the event this information is protected by the Federal Confidentiality of Alcohol and Drug Abuse Patient Records regulations: The Federal rules restrict any use of the information to criminally investigate or prosecute any alcohol or drug abuse patient.[facility] the event this information is protected by the Federal Confidentiality of Alcohol and Drug Abuse Patient Records regulations: The Federal rules restrict any use of the information to criminally investigate or prosecute any alcohol or drug abuse patient.[facility] the event this information is protected by the Federal Confidentiality of Alcohol and Drug Abuse Patient Records regulations: The Federal rules restrict any use of the information to criminally investigate or prosecute any alcohol or drug abuse patient.[facility] Reason for Visit (unrecogniz ed section and content) Reason Comments Well Woman Reason Comments New Patient UTI Specialty Diagnoses / Procedures Referred By Contac t Referred To Contact Urology / UROLOGY Diagnoses Bladder spasm BLADDER SPASM Procedures NEW UROL Self Handy Mcpherson PA-C [address] [place] [address] Referral ID Status Reason Start Date Expiration Date Visits Re quested Visits Authorized [id number] Closed 06/17/2021 02/07/2022 1 1 Reason Comments Appointment Reason Comments No Show Reason Comments Stress Incontinence Urinary Frequency Urinary Urgency Prolapse Specialty Diagnoses / Procedures Referred By Contac t Referred To Contact Urology / URO GYNECOLOGY Diagnoses Urinary frequency Bladder pain Procedures CONSULT TO UROLOGY OFFICE/OUTPATIENT NEW HIGH MDM 60-74 MINUTES Yvette Pearson MD [address] [place] [address] Handy Mcpherson PA-C [address] [place] [address] Referral ID Status Reason Start Date Expiration Date V isits Requested Visits Authorized [id number] Closed PCP Requested Referral 07/04/2021 02/07/2022 1 1 Reason Comments Prolapse Specialty Diagnoses / Procedures Referred By Contac t Referred To Contact Gynecology / URO GYNECOLOGY Diagnoses pessary fitting Procedures OFFICE/OUTPATIENT ESTABLISHED HIGH MDM 40-54 MIN EST [facility] PATIENT Mary Vazquez, ORGANIZATIONAL CONSULTANT.SHEEP HERDER [address] [place] [address] Mary Vazquez, ORGANIZATIONAL CONSULTANT.SHEEP HERDER [address] [place] [address] Referral ID Status Reason Start Date Expiration Date Visits Re quested Visits Authorized [id number] Closed 09/12/2021 02/07/2022 1 1 Care Teams (unrecognized sec tion and content) Freezer Operator Relationship Specialty Start Date End Date Sharona Rosalva Brando [address] [place] [address] [place] [phone] PCP - General 02/28/03 Freezer Operator Relationship Specialty Start Date End Date Sharona Rosalva Brando [address] [place] [address] [address] [place] [phone] PCP - General 02/28/03 Freezer Operator Relationship Specialty Start Date End Date Rosalva Tabor [facility] [place] [phone] PCP - General 02/28/03 Freezer Operator Relationship Specialty Start Date End Date Rosalva Tabor [facility] [place] [phone] PCP - General 02/28/03 Freezer Operator Relationship Specialty Start Date End Date Rosalva Tabor [facility] [place] [phone] PCP - General 02/28/03 Freezer Operator Relationship Specialty Start Date End Date Rosalva Tabor [facility] [place] [phone] PCP - General 02/28/03 FOR RECORDS PERTAINING TO PATIENTS WHO ARE OR HAVE BEEN ENROLLED IN A CHEMICAL DEPENDENCY/SUBSTANCEABUSE PROGRAM, SOME INFORMATION MAY BE OMITTED. This clinical summary was aggregated from multiple sources. Caution should be exercised in using it in the provision of clinical care. This summary normalizes information from multiple sources, and as a consequence, information in this document may materially change the coding, format and clinical context of patient data. In addition, data may be omitted in some cases. CLINICAL DECISIONS SHOULD BE BASED ON THE PRIMARY CLINICAL RECORDS. [facility] [employer] [facility]. provides no warranty or guarantee of the accuracy or completeness of information in this document.
--- NOTE | 2024-10-07 14:46 | EX.ED.VIS.EY ---
HPI History of Present Illness Chief Complaint: Eye Problem Narrative Narrative: 43-year-old female who denies significant past medical history presents with visual disturbance that happened approximately 2 hours ago. She states that she was driving, and the back of the car in front of her was very shiny. It was out of both eyes. It took 20 minutes for it to resolve, but she states that the shininess extended as well as the brightness and kept getting larger. She denies any exacerbating or alleviating factors, no headache, but states that she may have had some fogginess of her brain, and she is not quite sure that her vision has improved completely. She called her button tufter in [place] and while there was no answer, was told to come to [place] emergency department 60 because there is ophthalmology available here. She denies any nausea or vomiting, no other symptoms. 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 [facility] Medical History no medical history Home Medications ?Medication ?Instructions ?Recorded ?Last Taken ?Type fluticasone propionate 50 1 spray intranasal DAILY 10/07/24 Unknown History mcg/actuation nasal spray,suspension (24 Hour Allergy Relief) omega 9-wwd-rbz-fish oil 1,200 mg 1 cap PO DAILY 10/07/24 Unknown History (144 mg-216 mg) capsule (Fish Oil) Allergy/AdvReac Type Severity Reaction Status Date / Time No Known Allergies Allergy Verified 10/07/24 13:42 Surgical History no surgical history Social History Smoking Status: Never smoker ROS ROS ED ROS Narrative Review of systems positive for visual disturbance, expanding shininess/brightness out of both eyes. No fever or chills, no headache, symptoms resolved. EXAM Physical Exam Narrative Exam Narrative: Afebrile. Vital signs noted. Nontoxic-appearing. Cardiovascular examination reveals regular rate and rhythm. Lungs are clear to auscultation bilaterally. Abdomen is soft and nontender with positive bowel sounds. NIH stroke scale is 0. Neurological examination nonfocal, lateralizing. PERRL, EOMI. No visual field cut. Const Vital Signs: 10/07/24 13:41 10/07/24 13:48 Temperature 98.3 F Temperature Source Oral Pulse Rate 78 69 Respiratory Rate 16 16 Blood Pressure 106/59 L 109/74 Blood Pressure Mean 74 85 Pulse Ox 100 100 Oxygen Delivery Method Room Air Room Air MDM MDM MDM Narrative Medical decision making narrative: Differential diagnosis includes but not limited to visual migraine versus retinal detachment versus brain mass. I have low clinical suspicion for stroke or TIA. Additionally, I doubt brain mass or intracranial hemorrhage as her symptoms have resolved. Visual acuity will be obtained as well as CT of the brain. I reviewed the radiology report of the CT of the brain. Visual acuity noted per chart and appears normal at 20/25. I discussed patient with Dr. Andrey Linda with ophthalmology who agrees. Upon repeat examination, she states that her vision problem has essentially improved/resolved. At this point in time, I do not feel that she requires observation or admission. I do not feel that she requires blood work. She will follow-up with her button tufter or [place] [facility]. Return instructions to the emergency department were reviewed. Disposition is discharged home in stable condition. History & Record Review Discussion w/independent historian: Patient Management Discussion w/another healthcare provider: Membership Sales Advisor (Dr. Linda ophthalmology) Discharge Plan Triage Chief Complaint: Eye Problem ED Provider: Joshua Caputo Dx/Rx/DC Orders Clinical Impression: Visual disturbance, Migraine with visual aura Instructions: Understanding Vision Problems, ED Blurred Vision Prescriptions: No Action fluticasone propionate [24 Hour Allergy Relief] 50 mcg/actuation spray,suspension 1 spray intranasal DAILY Rx Instructions: administer into each nostril omega 4-mqf-hiw-fish oil [Fish Oil] 1,200 (144-216) mg capsule 1 cap PO DAILY Primary Care Provider: Ashley Chin Referrals: Andrey Linda MD [Med Staff - Active Staff] - 3-5 Days Ashley Chin PA [Primary Care Provider] - Activity Restrictions/Additional Instructions: Follow-up with your button tufter or [place] ophthalmology as soon as possible. You may have had more of a visual migraine. Return with increasing problems with vision, new or worsening symptoms. Print Language: Italian Disposition Disposition: Home, Self Care
--- NOTE | 2024-10-07 14:51 | CT_ITS ---
PROCEDURE: BRAIN/HEAD WITHOUT CONTRAST 10/07/2024 REASON FOR EXAM: VISUAL DISTURBANCE TECHNIQUE: Procedure Code: CTBR Modality: CT Procedure: BRAIN/HEAD WITHOUT CONTRAST Coronal and Sagittal reconstruction series were provided. One or more dose reduction techniques were used (e.g., Automated exposure control, adjustment of the mA and/or kV according to patient size, use of iterative reconstruction technique. RADIATION DOSE SUMMARY: CTDlvol: 44.99 mGy DLP: 796.11 mGycm COMPARISON: None FINDINGS: Brain: No intra-axial or extra=axial hemorrhage. No mass, mass effect or midline shift. No acute ischemia or infarct CSF Spaces: Normal, within normal limits Sinuses/Mastoids: Clear Bones: No aggressive process Globes and orbits are normal. CT/Brain/Head without Contrast IMPRESSION: Unremarkable exam [facility]
[2024-10-07 16:48] VITALS: BP 93/70; PULSE 74; RESP 15; TEMP 36.7; O2SAT 100
== END 2024-10-07 16:52 | disposition home or self-care (01) ==
PROVIDERS: Emergency Provider Emergency Medicine; PCP Physician Assistant; Visit Provider Emergency Medicine
DX: G43.109 Migraine with aura, not intractable, without status migrainosus (principal)
CPT/HCPCS: 70450; 99283; A4216